=== PATIENT | male | born 1960 | race Caucasian/White ===

== ENCOUNTER 2017-03-13 18:03 | Emergency (ER) | payer SELFPAY ==
[~2017-03-13] VITALS: Ht 177.8 cm; Wt 92.8 kg
[~2017-03-13 18:03] MED LIST: AMOX500T PO; HYDRO2.5%T TOP; METF-324 PO; ULTR50TA PO
[2017-03-13 18:15] VITALS: BP 127/75; PULSE 106; RESP 16; TEMP 98.3; O2SAT 96
[2017-03-13] MEDS ORDERED: GABA800T PO (18:24)
[2017-03-13] MEDS ORDERED: METF1000 PO (18:24)
--- NOTE | 2017-03-13 19:41 | PD ---
HPI Chief Complaint: Medication Refill Request Time Seen by Provider: 19:04 Travel History International Travel<30 days: No Contact w/Intl Traveler<30days: No Traveled to known affect area: No History of Present Illness HPI This is a 56-year-old male here requesting medication refill of Neurontin. Patient is unclear on his exact dose or what physician prescribed it for him. The patient first tells me he takes 300 mg and then his friend reports he takes 800 mg. His friend is answering most of the questions for him. The patient does not have a pill bottle to verify dosage or frequency. He will not give me the name of the physician who prescribes it for him. While being interviewed the patient and his friend becomes very argumentative. PFSH Past Medical History Arthritis: No Asthma: No Autoimmune Disease: No Anxiety: Yes Depression: No Heart Rhythm Problems: No Cancer: No High Cholesterol: No Chemotherapy: No Chest Pain: No Congestive Heart Failure: No COPD: No Cerebrovascular Accident: No Diabetes: Yes Patient Takes Glucophage: Yes Diminished Hearing: No Endocrine: No GERD: No Hiatal Hernia: No Kidney Stones: No Migraines: No Radiation Therapy: No Renal Failure: No Seizures: No Sleep Apnea: No Thyroid Disease: No Ulcer: No Tetanus Vaccination: Unknown Influenza Vaccination: No Past Surgical History Abdominal Surgery: Yes (HERNIA REPAIR) Arteriovenous Shunt: No Cardiac Surgery: No Endocrine Surgery: No Eye Surgery: No Gynecologic Surgery: No Insulin Pump: No Joint Replacement: No Oral Surgery: Yes (LIP SX) Pacemaker: No Thoracic Surgery: No Other Surgery: Yes Social History Alcohol Use: No Tobacco Use: Yes (2 PPD) Substance Use: No Allergies-Medications (Allergen,Severity, Reaction): Coded Allergies: codeine (Unverified Allergy, Intermediate, Nausea/Vomiting, 03/13/17) Reported Meds & Prescriptions Reported Meds & Active Scripts Active Reported Metformin (Metformin HCl) 1,000 Mg Tab 1,000 Mg PO BIDPC Gabapentin 800 Mg Tab 800 Mg PO TID Review of Systems Except as stated in HPI: all other systems reviewed are Neg General / Constitutional: No: Fever Eyes: No: Visual changes HENT: No: Headaches Cardiovascular: No: Chest Pain or Discomfort Respiratory: No: Shortness of Breath Gastrointestinal: No: Abdominal Pain Genitourinary: No: Dysuria Musculoskeletal: Positive: Pain (chronic bilateral leg pain) Skin: No Rash Physical Exam Narrative GENERAL: Alert 56 old male. No distress SKIN: Warm and dry. HEAD: Normocephalic. EYES: No injection or drainage. NECK: Supple, trachea midline. RESPIRATORY: No respiratory distress Data Data Last Documented VS Vital Signs Date Time Temp Pulse Resp B/P (MAP) Pulse Ox O2 Delivery O2 Flow Rate FiO2 03/13/17 18:15 98.3 106 16 127/75 (92) 96 MDM Medical Decision Making Medical Screen Exam Complete: Yes Emergency Medical Condition: No Differential Diagnosis Medication refill, medication noncompliance Narrative Course A medical screening exam was performed: At the time of evaluation the presenting medical condition was determined not to be of an emergent nature. The patient was given the option of receiving additional care, but declined. Patient was given options for additional community resources from which to obtain care. The Patient Has Been advised to seek medical attention for their presenting complaint. The patient has been advised to return to the ER at any time if an emergent condition develops. Diagnosis Primary Impression: Encounter for medical screening examination Referrals: [facility] Disposition: 01 DISCHARGE HOME Condition: Stable Cris Cuellar Mar 13, 2017 19:41
== END 2017-03-13 19:42 | disposition left against medical advice (07) ==
LOC: PHEFT 18:03
DX: Z76.0 Encounter for issue of repeat prescription (principal); F41.9 Anxiety disorder, unspecified; E11.9 Type 2 diabetes mellitus without complications; Z88.5 Allergy status to narcotic agent; Z79.84 Long term (current) use of oral hypoglycemic drugs
CPT/HCPCS: 99281

== ENCOUNTER 2017-03-17 11:29 | Inpatient (IN) | payer OTHER ==
[~2017-03-17] VITALS: Ht 177.8 cm; Wt 88.7 kg
[~2017-03-17 11:29] MED LIST changes: -AMOX500T PO; +GABA800T PO; -HYDRO2.5%T TOP; -METF-324 PO; +METF1000 PO; -ULTR50TA PO
[2017-03-17 11:31] VITALS: BP 113/68; PULSE 92; RESP 18; TEMP 98.5; O2SAT 98
[2017-03-17 12:18] LABS: HEMATOCRIT 38.6 % (39.0-51.0); HEMOGLOBIN 12.3 GM/DL (13.0-17.0); MEAN CORPUSCULAR HEMOGLOBIN 27.5 PG (27.0-34.0); MEAN PLATELET VOLUME 6.5 FL (7.0-11.0); PLATELET COUNT 543 TH/MM3 (150-450); RED BLOOD COUNT 4.48 MIL/MM3 (4.50-5.90); RED CELL DISTRIBUTION WIDTH 15.2 % (11.6-17.2); WHITE BLOOD COUNT 12.9 TH/MM3 (4.0-11.0)
[2017-03-17 12:31] LABS: PROTHROMBIN TIME - PATIENT 10.5 SEC (9.8-11.6)
[2017-03-17 12:34] LABS: ALBUMIN 2.3 GM/DL (3.4-5.0); AST (GOT) 10 U/L (15-37); BICARBONATE 26.6 MEQ/L (21.0-32.0); BLOOD UREA NITROGEN 13 MG/DL (7-18); CALCIUM 9.4 MG/DL (8.5-10.1); CHLORIDE 98 MEQ/L (98-107); CREATININE 0.93 MG/DL (0.60-1.30); GLOMERULAR FILTRATION RATE 84 ML/MIN (>89); GLUCOSE,RANDOM 377 MG/DL (74-106); MAGNESIUM 2.1 MG/DL (1.5-2.5); SODIUM (NA) 132 MEQ/L (136-145)
[2017-03-17 12:36] LABS: ALKALINE PHOSPHATASE 132 U/L (45-117); ALT (GPT) 6 U/L (12-78); TOTAL BILIRUBIN ADULT 0.1 MG/DL (0.2-1.0); TOTAL PROTEIN 9.4 GM/DL (6.4-8.2); TROPONIN I LESS THAN 0.02 NG/ML (0.02-0.05)
[2017-03-17 12:47] LABS: BANDS 2 % (0-6); LYMPHOCYTES 26 % (9-44); NEUTROPHIL # MANUAL DIFF 9.2 TH/MM3 (1.8-7.7); POLYS (SEG NEUTROPHILS) 69 % (16-70)
--- NOTE | 2017-03-17 12:49 | RADRPT ---
EXAM DATE/TIME: 03/17/2017 12:12 [facility] COMPARISON: No previous studies available for comparison. INDICATIONS : Trouble walking, bilateral leg weakness, recent fall RADIATION DOSE: 56.35 CTDIvol (mGy) MEDICAL HISTORY : Diabetes SURGICAL HISTORY : None. ENCOUNTER: Initial ACUITY: 3 weeks PAIN SCALE: 9/10 LOCATION: cranial TECHNIQUE: Multiple contiguous axial images were obtained of the head. Using automated exposure control and adj ustment of the mA and/or kV according to patient size, radiation dose was kept as low as reasonably a chievable to obtain optimal diagnostic quality images. DICOM format image data is available electro nically for review and comparison. FINDINGS: CEREBRUM: There is mild generalized atrophy. Ventricles are normal in size. There is a well-defined low density adjacent to the right frontal horn in the periventricular white matter characteristic of encephaloma lacia. No midline shift, mass lesion, hemorrhage or acute infarction. No extra-axial fluid collecti ons are seen. POSTERIOR FOSSA: The cerebellum and brainstem demonstrate no acute finding. The 4th ventricle is midline. The cerebe llopontine angle is unremarkable. EXTRACRANIAL: There is complete opacification of the partially visualized left maxillary sinus. A subcutaneous hete rogeneous ovoid mass is present along the left inferior occipital region measuring up to 3.7 cm. SKULL: The calvaria is intact. No evidence of skull fracture. CONCLUSION: 1. No acute intracranial abnormality is identified. There is encephalomalacia likely related to old i schemia in the right frontal periventricular white matter. 2. There is a 3.7 cm subcutaneous mass in the left inferior occipital region. The appearance favors a sebaceous cyst or epidermal inclusion cyst. Suggest correlating with clinical examination to ensure that a more concerning abnormality is not present in this area. 3. Complete opacification of the partially visualized left maxillary sinus. Melquiades Vann MD on March 17, 2017 at 12:43 Board Certified Radiologist. This report was verified electronically.
--- NOTE | 2017-03-17 13:44 | EKG ---
Date Performed: 03/17/2017 Time Performed: 11:57:44 PTAGE: 56 years EKG: Sinus rhythm NORMAL ECG PREVIOUS TRACING : 07/28/2013 15.57 Since the prior tracing, there has been no significant mueller DOCTOR: Rizwan Moscoso Interpretating Date/Time 03/17/2017 13:42:58
--- NOTE | 2017-03-17 15:57 | PD ---
HPI Chief Complaint: General Weakness Time Seen by Provider: 15:28 Travel History International Travel<30 days: No Contact w/Intl Traveler<30days: No Traveled to known affect area: No History of Present Illness HPI 56-year-old male with PMH of untreated DM, osteomyelitis, current smoker 2 packs per day presents to the ED for evaluation of worsening wounds of the left foot, inability to ambulate. Endorses multiple falls. Unsure of LOC. He denies fever, chills, nausea, vomiting decreased appetite, changes in bowel habits, dysuria, back pain. He states that he has not been taking any medications for "a while." He does not have any primary care provider. He states the last time he had any care of his foot was 4 years ago when he was admitted to the hospital. He states that his condition has worsened to the point where he is unable to care for himself which caused him to seek treatment today. PFSH Past Medical History Arthritis: No Asthma: No Autoimmune Disease: No Anxiety: Yes Depression: No Heart Rhythm Problems: No Cancer: No High Cholesterol: No Chemotherapy: No Chest Pain: No Congestive Heart Failure: No COPD: No Cerebrovascular Accident: No Diabetes: Yes Diminished Hearing: No Endocrine: No GERD: No Hiatal Hernia: No Kidney Stones: No Migraines: No Radiation Therapy: No Renal Failure: No Seizures: No Sleep Apnea: No Thyroid Disease: No Ulcer: No Past Surgical History Abdominal Surgery: Yes (HERNIA REPAIR) Arteriovenous Shunt: No Cardiac Surgery: No Endocrine Surgery: No Eye Surgery: No Gynecologic Surgery: No Insulin Pump: No Joint Replacement: No Oral Surgery: Yes (LIP SX) Pacemaker: No Thoracic Surgery: No Other Surgery: Yes Social History Alcohol Use: No Tobacco Use: Yes (2 PPD) Substance Use: No Allergies-Medications (Allergen,Severity, Reaction): Coded Allergies: codeine (Unverified Allergy, Intermediate, Nausea/Vomiting, 03/13/17) Reported Meds & Prescriptions Reported Meds & Active Scripts Active Reported Gabapentin 800 Mg Tab 800 Mg PO TID Review of Systems Except as stated in HPI: all other systems reviewed are Neg Physical Exam Narrative GENERAL: Well-nourished, well-developed, disheveled, foul-smelling white male in no acute distress SKIN: Focused skin assessment warm/dry. Multiple small crusts distributed over the entire skin surface. Multiple open wounds of the plantar surface of the left foot, notably the lateral aspect is a 3-4 cm defect, approximately 2 cm deep, the distal head of the fourth metatarsal is visible. There is purulent material in the wound, small amount of bleeding. Patient has no sensation to deep probing of the wound. HEAD: Normocephalic. Atraumatic. Large lipoma left occiput. EYES: No scleral icterus. No injection or drainage. NECK: Supple, trachea midline. No JVD or lymphadenopathy. CARDIOVASCULAR: Regular rate and rhythm without murmurs, gallops, or rubs. RESPIRATORY: Breath sounds equal bilaterally. No accessory muscle use. GASTROINTESTINAL: Abdomen soft, non-tender, nondistended. MUSCULOSKELETAL: No cyanosis, or edema. BACK: Nontender without obvious deformity. No CVA tenderness. Data Data Last Documented VS Vital Signs Date Time Temp Pulse Resp B/P (MAP) Pulse Ox O2 Delivery O2 Flow Rate FiO2 03/17/17 11:31 98.5 92 18 113/68 (83) 98 Orders Orders Electrocardiogram (03/17/17 11:38) Complete Blood Count With Diff (03/17/17 11:38) Comprehensive Metabolic Panel (03/17/17 11:38) Magnesium (Mg) (03/17/17 11:38) Ckmb (Isoenzyme) Profile (03/17/17 11:38) Troponin I (03/17/17 11:38) Act Partial Throm Time (Ptt) (03/17/17 11:38) Prothrombin Time / Inr (Pt) (03/17/17 11:38) Ct Brain W/O Iv Contrast(Rout) (03/17/17 11:38) Urinalysis - C+S If Indicated (03/17/17 15:30) Westergren Sedimentation Rate (03/17/17 15:49) C-Reactive Protein (Crp) (03/17/17 15:49) Blood Culture (03/17/17 15:49) Wound Culture And Gram Stain (03/17/17 15:49) Foot, Complete (Mov8dym) (03/17/17 16:13) Consult Podiatry (03/17/17 ) Wbc Spect Ceretec (03/17/17 ) Vancomycin Inj (Vancomycin Inj) (03/17/17 16:45) Piperacil-Tazo 4.5 Gm Premix (Zosyn 4.5 (03/17/17 16:45) Admit To Inpatient (03/17/17 ) Vital Signs (Adult) Q4H (03/17/17 17:02) Neuro Checks Q4H (03/17/17 17:02) Activity Oob With Assistance (03/17/17 17:02) Intake + Output DELON.QSHIFT (03/17/17 17:02) Diet 1800 Ada Cons Carb (03/17/17 Dinner) Sodium Chloride 0.9% Flush (Ns Flush) (03/17/17 17:15) Sodium Chloride 0.9% Flush (Ns Flush) (03/17/17 21:00) Acetaminophen (Tylenol) (03/17/17 17:15) Ondansetron Inj (Zofran Inj) (03/17/17 17:15) Basic Metabolic Panel (Bmp) (03/18/17 06:00) Complete Blood Count With Diff (03/18/17 06:00) Pt Request For Service (03/17/17 17:02) Heparin Inj (Heparin Inj) (03/17/17 17:15) Naloxone Inj (Narcan Inj) (03/17/17 17:15) Magnesium Hydroxide Liq (Milk Of Magnesi (03/17/17 17:15) Sennosides (Senokot) (03/17/17 17:15) Bisacodyl Supp (Dulcolax Supp) (03/17/17 17:15) Lactulose Liq (Lactulose Liq) (03/17/17 17:15) Inpatient Certification (03/17/17 ) Admit Order (Ed Use Only) (03/17/17 17:03) Bedside Glucose DELON.CSUGAR (03/17/17 17:04) Blood Glucose Goal (Criteria) (03/17/17 17:04) Hypoglycemia 70 Mg/Dl Or < (03/17/17 17:04) Notify Dr: Other (03/17/17 17:04) Dextrose 50% In Earl (Vial) Inj (D50w (Vi (03/17/17 17:15) Glucagon Inj (Glucagon Inj) (03/17/17 17:15) Consult Geek Squad Manager (03/17/17 ) Case Management Consult (03/17/17 ) Insulin Aspart Supplemtl Scale (Novolog (03/17/17 21:00) Labs Laboratory Tests Test 03/17/17 12:05 White Blood Count 12.9 TH/MM3 Red Blood Count 4.48 MIL/MM3 Hemoglobin 12.3 GM/DL Hematocrit 38.6 % Mean Corpuscular Volume 86.0 FL Mean Corpuscular Hemoglobin 27.5 PG Mean Corpuscular Hemoglobin Concent 32.0 % Red Cell Distribution Width 15.2 % Platelet Count 543 TH/MM3 Mean Platelet Volume 6.5 FL CBC Comment AUTO DIFF Differential Total Cells Counted 100 Neutrophils % (Manual) 69 % Band Neutrophils % 2 % Lymphocytes % 26 % Eosinophils % 3 % Neutrophils # (Manual) 9.2 TH/MM3 Differential Comment FINAL DIFF MANUAL Platelet Estimate HIGH Platelet Morphology Comment NORMAL Prothrombin Time 10.5 SEC Prothromb Time International Ratio 1.0 RATIO Activated Partial Thromboplast Time 40.2 SEC Blood Urea Nitrogen 13 MG/DL Creatinine 0.93 MG/DL Random Glucose 377 MG/DL Total Protein 9.4 GM/DL Albumin 2.3 GM/DL Calcium Level 9.4 MG/DL Magnesium Level 2.1 MG/DL Alkaline Phosphatase 132 U/L Aspartate Amino Transf (AST/SGOT) 10 U/L Alanine Aminotransferase (ALT/SGPT) 6 U/L Total Bilirubin 0.1 MG/DL Sodium Level 132 MEQ/L Potassium Level 4.8 MEQ/L Chloride Level 98 MEQ/L Carbon Dioxide Level 26.6 MEQ/L Anion Gap 7 MEQ/L Estimat Glomerular Filtration Rate 84 ML/MIN Total Creatine Kinase 45 U/L Troponin I LESS THAN 0.02 NG/ML C-Reactive Protein 7.50 MG/DL MDM Medical Decision Making Medical Screen Exam Complete: Yes Emergency Medical Condition: Yes Differential Diagnosis Diabetic foot wound versus cellulitis versus sepsis versus osteomyelitis versus noncompliance versus other Narrative Course 56-year-old male with PMH of untreated DM, osteomyelitis, current smoker 2 packs per day presents to the ED for evaluation of worsening wounds of the left foot, inability to ambulate. States that he has had multiple falls recently. He is unsure if he does that or loss consciousness. He does not have any primary care provider. He states the last time he had any care of his foot was 4 years ago when he was admitted to the hospital. He states that his condition has worsened to the point where he is unable to care for himself which caused him to seek treatment today. Patient's afebrile, pulse 92, respiratory rate 18 , O2 sats 98%, BP 113/68 on presentation. Physical exam reveals a disheveled, foul-smelling white male in no acute distress. There is a large lipoma on the left aspect of the occiput. The left foot is completely insensate and bears several open wounds of the plantar surface. The largest of these is on the lateral aspect, near the distal head of the fifth metatarsal. This is actually visible through the wound. The wounds are weeping purulent, foul-smelling discharge. IV was established. Blood cultures, wound cultures were obtained. EKG rate 93, sinus rhythm. Normal intervals. Normal axis. No acute ST changes. Reviewed by Dr. Bravo Cardiac enzymes negative 1. WBCs 12.9. Hemoglobin 12.3. Platelets 543. INR 1.0. CMP: Glucose 377. CRP 7.50 ESR 86 Right foot x-ray: Involvement of the metatarsal phalangeal joints toes 3 and 4 with involvement of the distal shaft of the fourth metatarsal suggesting osteomyelitis or associated septic arthritis both sides of the joint. Findings per radiology read. Patient was administered IV vancomycin and Zosyn. I spoke with Dr. Hu who would like the patient admitted to the medicine service. He request a nuclear medicine Ceretec scan of the involved appendage. I discussed the plan to admit to the patient. He is agreeable. Dr. Bland agrees to accept him to the medicine service. Please see medicine and podiatry notes for disposition. Luh Michelle Mar 17, 2017 15:57
[2017-03-17] MEDS ORDERED: PIPERACIL-TAZO 4.5 GM PREMIX 100 ML IV ONE (16:45)
[2017-03-17] MEDS ORDERED: VANCOMYCIN INJ 1,000 MG in SODIUM CHLOR 0.9% 250 ML INJ 250 ML IV ONE (16:45)
--- NOTE | 2017-03-17 17:13 | RADRPT ---
EXAM DATE/TIME: 03/17/2017 16:23 [facility] COMPARISON: FOOT LEFT COMPLETE ([id number]), July 30, 2013, 11:12. INDICATIONS : Left foot pain, evaluate for osteomyelitis. MEDICAL HISTORY : Diabetes mellitus type II. Smoker. SURGICAL HISTORY : Multiple foot surgery. ENCOUNTER: Initial ACUITY: 3 weeks PAIN SCORE: 10/10 LOCATION: Left plantar surface. FINDINGS: There is pencil point foreshortening at the base of the first and second metacarpals. Pencil point fo reshortening is noted at the base of the distal phalanx of the second toe. There is sclerosis of the shaft of the third metatarsal which is fused to the accompanying third cuneiform bone There is absence of the shaft of the distal one half of the fourth metatarsal with its margin and joint at the fourth metatarsophalangeal joint being eroded suspicious of infection osteomyelitis and or septic arthritis. Erosive changes are noted on both sides of the t hird metatarsal phalangeal joint suggesting septic arthritis infection. CONCLUSION: Findings of involvement of the metatarsal phalangeal joint toes #3 and 4 with involvement of the dist al shaft of the fourth metatarsal suggesting osteomyelitis in or associated septic arthritis both pippa es of the joints. Jaxon Lisa MD on March 17, 2017 at 17:06 Board Certified Radiologist. This report was verified electronically.
[2017-03-17] MEDS ORDERED: LACTULOSE SYRUP 20 GM/30 ML CUP PO PRN (17:15)
[2017-03-17] MEDS ORDERED: GLUCAGON 1 MG/ML VIAL OTHER PRN (17:15)
[2017-03-17] MEDS ORDERED: SENNOSIDES 8.6 MG TAB PO PRN (17:15)
[2017-03-17] MEDS ORDERED: BISACODYL 10 MG SUPP RECTAL PRN (17:15)
[2017-03-17] MEDS ORDERED: NALOXONE HCL 0.4 MG/ML AMP IV PUSH PRN (17:15)
[2017-03-17] MEDS: HEPARIN SODIUM - SQ 10,000 UNITS/ML VIAL SQ SCH (17:15)
[2017-03-17] MEDS ORDERED: DEXTROSE 50% IN WATER 50 ML VIAL(D50) IV PUSH PRN (17:15)
[2017-03-17] MEDS ORDERED: MAGNESIUM HYDROXIDE SUSP 30 ML CUP PO PRN (17:15)
[2017-03-17] MEDS ORDERED: ONDANSETRON HCL 4 MG/2 ML VIAL IVP PRN (17:15)
[2017-03-17 17:45] VITALS: BP 101/56; PULSE 92; RESP 18; TEMP 97.5; O2SAT 97
[2017-03-17 20:00] VITALS: BP 127/78; PULSE 93; RESP 20; TEMP 98.9; O2SAT 96
--- NOTE | 2017-03-17 20:01 | HHI.HP ---
[facility] No Primary Care Physician Admission Diagnosis diabetic foot wound, r/o osteomyelitis Diagnoses: Travel History International Travel<30 Days: No Contact w/Intl Traveler <30 Da: No Traveled to Known Affected Are: No History of Present Illness 56 y/o male with a history or DM and neuropathy with complaints of a worsening ulcer on his left foot. He states he has had this ulcers for about a week out. He states he has not seen a PCP in a few years and gets his metformin from his brothers prescription. He has misplaced the bottle and has not taken meds for 3 days. He states he has not been able to walk very well and uses a walker to get around. He states he has not seen a speech lang path because he fears he may loose his foot. He denies any chest pain, fevers, or chills. He takes gabapentin for pain and states that it does control his pain. He does not have any increasing pain to his foot. Review of Systems Except as stated in HPI: all other systems reviewed are Neg Past Family Social History Past Medical History DM Neuropathy Past Surgical History Left great toe amputation Reported Medications Reported Meds & Active Scripts Active Reported Gabapentin 800 Mg Tab 800 Mg PO TID Allergies: Coded Allergies: codeine (Unverified Allergy, Intermediate, Nausea/Vomiting, 03/13/17) Active Ordered Medications Current Medications Medications (Trade) Dose Ordered Sig/Sabino Route Start Time Stop Time Status Last Admin (NS Flush) 2 ml UNSCH PRN IV FLUSH 03/17/17 17:15 (NS Flush) 2 ml BID IV FLUSH 03/17/17 21:00 (Tylenol) 650 mg Q4H PRN PO 03/17/17 17:15 (Zofran Inj) 4 mg Q6H PRN IVP 03/17/17 17:15 (Heparin Inj) 5,000 units Q12HR SQ 03/17/17 17:15 03/17/17 17:15 (Narcan Inj) 0.4 mg UNSCH PRN IV PUSH 03/17/17 17:15 (Milk Of Magnesia Liq) 30 ml Q12H PRN PO 03/17/17 17:15 (Senokot) 17.2 mg Q12H PRN PO 03/17/17 17:15 (Dulcolax Supp) 10 mg DAILY PRN RECTAL 03/17/17 17:15 (Lactulose Liq) 30 ml DAILY PRN PO 03/17/17 17:15 (D50w (Vial) Inj) 50 ml UNSCH PRN IV PUSH 03/17/17 17:15 (Glucagon Inj) 1 mg UNSCH PRN OTHER 03/17/17 17:15 (NovoLOG SUPPLEMENTAL SCALE) 1 ACHS SLIDING SCALE SQ 03/17/17 21:00 Family History Father: [place], [place] Social History Tobacco use: 1 PPD Alcohol use: Denies Illicit drug use: Denies Lives with a brother but about to be homeless Physical Exam Vital Signs Vital Signs Date Time Temp Pulse Resp B/P (MAP) Pulse Ox O2 Delivery O2 Flow Rate FiO2 03/17/17 17:45 97.5 92 18 101/56 (71) 97 03/17/17 11:31 98.5 92 18 113/68 (83) 98 Physical Exam GENERAL: This is a well-nourished, well-developed patient, in no apparent distress. SKIN: Plantar ulcer to left foot, necrotic and foul smelling, brownish yellow drainage. HEAD: Atraumatic. Normocephalic. EYES: Pupils equal round and reactive. Extraocular motions intact. ENT: Nose without bleeding, purulent drainage or septal hematoma. Airway patent. NECK: Trachea midline. No JVD or lymphadenopathy. CARDIOVASCULAR: Regular rate and rhythm without murmurs, gallops, or rubs. Diminished pedal pulses. RESPIRATORY: Clear to auscultation. Breath sounds equal bilaterally. No wheezes , rales, or rhonchi. GASTROINTESTINAL: Abdomen soft, non-tender, nondistended. No guarding. MUSCULOSKELETAL: Extremities without clubbing, cyanosis, or edema. No calf tenderness. NEUROLOGICAL: Awake and alert. Motor and sensory grossly within normal limits. Normal speech. Laboratory Laboratory Tests Test 03/17/17 12:05 03/17/17 17:30 White Blood Count 12.9 Red Blood Count 4.48 Hemoglobin 12.3 Hematocrit 38.6 Mean Corpuscular Volume 86.0 Mean Corpuscular Hemoglobin 27.5 Mean Corpuscular Hemoglobin Concent 32.0 Red Cell Distribution Width 15.2 Platelet Count 543 Mean Platelet Volume 6.5 CBC Comment AUTO DIFF Differential Total Cells Counted 100 Neutrophils % (Manual) 69 Band Neutrophils % 2 Lymphocytes % 26 Eosinophils % 3 Neutrophils # (Manual) 9.2 Differential Comment FINAL DIFF MANUAL Platelet Estimate HIGH Platelet Morphology Comment NORMAL Prothrombin Time 10.5 Prothromb Time International Ratio 1.0 Activated Partial Thromboplast Time 40.2 Blood Urea Nitrogen 13 Creatinine 0.93 Random Glucose 377 Total Protein 9.4 Albumin 2.3 Calcium Level 9.4 Magnesium Level 2.1 Alkaline Phosphatase 132 Aspartate Amino Transf (AST/SGOT) 10 Alanine Aminotransferase (ALT/SGPT) 6 Total Bilirubin 0.1 Sodium Level 132 Potassium Level 4.8 Chloride Level 98 Carbon Dioxide Level 26.6 Anion Gap 7 Estimat Glomerular Filtration Rate 84 Total Creatine Kinase 45 Troponin I LESS THAN 0.02 C-Reactive Protein 7.50 Erythrocyte Sedimentation Rate 86 Date/Time Source Procedure Growth Status 03/17/17 16:35 Blood Line Aerobic Blood Culture Pending Received 03/17/17 16:35 Blood Line Anaerobic Blood Culture Pending Received 03/17/17 16:00 Wound Foot Gram Stain Pending Received 03/17/17 16:00 Wound Foot Wound Culture Pending Received Result Diagram: 03/17/17 1205 03/17/17 1205 Imaging Last Impressions Foot X-Ray 03/17/17 1613 Signed Impressions: Service Date/Time: Friday, March 17, 2017 16:23 - CONCLUSION: Findings of involvement of the metatarsal phalangeal joint toes #3 and 4 with involvement of the distal shaft of the fourth metatarsal suggesting osteomyelitis in or associated septic arthritis both sides of the joints. Jaxon Lisa MD Head CT 03/17/17 1138 Signed Impressions: Service Date/Time: Friday, March 17, 2017 12:12 - CONCLUSION: 1. No acute intracranial abnormality is identified. There is encephalomalacia likely related to old ischemia in the right frontal periventricular white matter. 2. There is a 3.7 cm subcutaneous mass in the left inferior occipital region. The appearance favors a sebaceous cyst or epidermal inclusion cyst. Suggest correlating with clinical examination to ensure that a more concerning abnormality is not present in this area. 3. Complete opacification of the partially visualized left maxillary sinus. MD Maggie Christian VTE Risk Assessment Maggie VTE Risk Assessment: Mod/High Risk (score >= 2) Caprini Risk Assessment Model Point Value = 1 Point Value = 2 Point Value = 3 Point Value = 5 Age 41-60 Minor surgery BMI > 25 kg/m2 Swollen legs Varicose veins or History of unexplained or recurrent spontaneous Oral contraceptives or hormone replacement Sepsis (< 1 month) Serious lung disease, including pneumonia (< 1 month) Abnormal pulmonary function Acute myocardial infarction Congestive heart failure (< 1 month) History of inflammatory bowel disease Medical patient at bed rest Age 61-74 Arthroscopic surgery Major open surgery (> 45 min) Laparoscopic surgery (> 45 min) Malignancy Confined to bed (> 72 hours) Immobilizing plaster cast Central venous access Age >= 75 History of VTE Family history of VTE Factor V Leiden Prothrombin [id number] Lupus anticoagulant Anticardiolipin antibodies Elevated serum homocysteine Heparin-induced thrombocytopenia Other congenital or acquired thrombophilia Stroke (< 1 month) Elective arthroplasty Hip, pelvis, or leg fracture Acute spinal cord injury (< 1 month) Prophylaxis Regimen Total Risk Factor Score Risk Level Prophylaxis Regimen 0-1 Low Early ambulation 2 Moderate Order ONE of the following: *Sequential Compression Device (SCD) *Heparin 5000 units SQ BID 3-4 Higher Order ONE of the following medications: *Heparin 5000 units SQ TID *Enoxaparin/Lovenox 40 mg SQ daily (WT < 150 kg, CrCl > 30 mL/min) *Enoxaparin/Lovenox 30 mg SQ daily (WT < 150 kg, CrCl > 10-29 mL/min) *Enoxaparin/Lovenox 30 mg SQ BID (WT < 150 kg, CrCl > 30 mL/min) AND/OR *Sequential Compression Device (SCD) 5 or more Highest Order ONE of the following medications: *Heparin 5000 units SQ TID (Preferred with Epidurals) *Enoxaparin/Lovenox 40 mg SQ daily (WT < 150 kg, CrCl > 30 mL/min) *Enoxaparin/Lovenox 30 mg SQ daily (WT < 150 kg, CrCl > 10-29 mL/min) *Enoxaparin/Lovenox 30 mg SQ BID (WT < 150 kg, CrCl > 30 mL/min) AND *Sequential Compression Device (SCD) Assessment and Plan Problem List: (1) Osteomyelitis of toe of left foot ICD Code: M86.9 - Osteomyelitis of toe of left foot Status: Acute (2) DM (diabetes mellitus), type 2, uncontrolled ICD Code: E11.65 - DM (diabetes mellitus), type 2, uncontrolled Status: Acute (3) Hyperglycemia ICD Code: R73.9 - Hyperglycemia Status: Acute Assessment and Plan 56 y/o male with a history or DM and neuropathy with complaints of a worsening ulcer on his left foot. Sepsis due to Osteomyelitis of left foot, WBC 12.9, HR 95 ESR 86 Foot x ray reviewed and suggests osteomyelitis -Vanco IV and Zosyn IV -Consult Podiatry for recommendations -WBC scan ordered Hyperglycemia in an uncontrolled diabetic Glucose 377 -Accu checks AC and HS -A1C ordered, patient may need long acting insulin -Consult case management for medication assistance -unit educator Diabetic neuropathy -Resume home gabapentin Tobacco abuse -Encouraged to quit DVT prophylaxis: Heparin SQ Discussed Condition With Patient and RN Physician Certification 2 Midnight Certification Type: Admission for Inpatient Services Order for Inpatient Services The services are ordered in accordance with Medicare regulations or non- Medicare payer requirements, as applicable. In the case of services not specified as inpatient-only, they are appropriately provided as inpatient services in accordance with the 2-midnight benchmark. Estimated LOS (days): 3 days is the estimated time the patient will need to remain in the hospital, assuming treatment plan goals are met and no additional complications. Post-Hospital Plan: Not yet determined Joanne Smith Mar 17, 2017 20:01
[2017-03-17] MEDS ORDERED: Vancomycin Consult Pharmacy 1 EA OTHER SCH (20:30)
[2017-03-17] MEDS ORDERED: GABAPENTIN 400 MG CAP PO ONE (20:30)
[2017-03-17] MEDS: INSULIN ASPART SUPPLEMENTAL SCALE SQ SCH (21:00)
[2017-03-17] MEDS ORDERED: INSULIN ASPART SUPPLEMENTAL SCALE SQ SCH (21:00)
[2017-03-17] MEDS: VANCOMYCIN 1 GM/200 ML PREMIX IV ONE (21:00)
[2017-03-17] MEDS: GABAPENTIN 400 MG CAP PO SCH (22:49)
[2017-03-17] MEDS: PIPERACIL-TAZO 3.375 GM PREMIX 50 ML IV SCH (23:32)
[2017-03-17] MEDS: SODIUM CHLORIDE 0.9% FLUSH 10 ML FLUSH IV FLUSH SCH (23:33)
[2017-03-18] VITALS: BP 119/67; PULSE 96; RESP 20; TEMP 99.5; O2SAT 95
[2017-03-18 04:00] VITALS: BP 128/69; PULSE 95; RESP 20; TEMP 98.1; O2SAT 96
[2017-03-18] MEDS: PIPERACIL-TAZO 3.375 GM PREMIX 50 ML IV SCH ×4 (04:24→22:57)
[2017-03-18 05:35] LABS: AUTOMATED NEUTROPHIL # 7.9 TH/MM3 (1.8-7.7); BASOPHIL # 0.1 TH/MM3 (0-0.2); BASOPHIL % 1.1 % (0.0-2.0); EOSINOPHIL # 0.3 TH/MM3 (0-0.4); EOSINOPHIL % 2.9 % (0.0-4.0); HEMATOCRIT 29.9 % (39.0-51.0); HEMOGLOBIN 10.4 GM/DL (13.0-17.0); LYMPHOCYTE # 2.5 TH/MM3 (1.0-4.8); MEAN CELL VOLUME 83.8 FL (80.0-100.0); MEAN CORPUSCULAR HEMOGLOBIN 29.1 PG (27.0-34.0); MEAN CORPUSCULAR HGB CONC 34.8 % (32.0-36.0); MEAN PLATELET VOLUME 6.7 FL (7.0-11.0); MONO % 9.8 % (0.0-8.0); MONOCYTE # 1.2 TH/MM3 (0-0.9); NEUT % 65.2 % (16.0-70.0); PLATELET COUNT 499 TH/MM3 (150-450); RED BLOOD COUNT 3.57 MIL/MM3 (4.50-5.90); RED CELL DISTRIBUTION WIDTH 14.8 % (11.6-17.2); WHITE BLOOD COUNT 12.1 TH/MM3 (4.0-11.0)
[2017-03-18 05:51] LABS: BICARBONATE 28.9 MEQ/L (21.0-32.0); CALCIUM 8.6 MG/DL (8.5-10.1); CREATININE 0.83 MG/DL (0.60-1.30)
[2017-03-18 07:50] VITALS: BP 106/56; PULSE 90; RESP 21; TEMP 98.5; O2SAT 95
[2017-03-18] MEDS: INSULIN ASPART SUPPLEMENTAL SCALE SQ SCH ×4 (09:43→21:39)
[2017-03-18] MEDS: SODIUM CHLORIDE 0.9% FLUSH 10 ML FLUSH IV FLUSH SCH ×2 (09:44→21:38)
[2017-03-18] MEDS: VANCOMYCIN 1,500 MG/NS 500 ML IV SCH ×4 (09:44→22:56)
[2017-03-18] MEDS: HEPARIN SODIUM - SQ 10,000 UNITS/ML VIAL SQ SCH ×2 (09:49→21:37)
[2017-03-18 11:44] VITALS: BP 110/60; PULSE 90; RESP 22; TEMP 98.9; O2SAT 95
--- NOTE | 2017-03-18 12:03 | PD.POD ---
Subjective Podiatric Problems Chronic osteomyelitis left foot Pain scale used: 0-10 numeric scale Pain score: 0 Remarks Patient is a 56-year-old diabetic under poor control who smokes. Back in 2013 he had a left hallux amputation for osteomyelitis. He failed to follow-up and presented to the emergency department yesterday with open wounds of his left foot. Past Med/Surg/Social History Past Medical History Endocrine: REPORTS HX OF: Diabetes mellitus Social History Smoking Status: Current Every Day Smoker Review of Systems Notes Open wounds of the left foot Objective Vital Signs Vital Signs Date Time Temp Pulse Resp B/P (MAP) Pulse Ox O2 Delivery O2 Flow Rate FiO2 03/18/17 11:44 98.9 90 22 110/60 (77) 95 03/18/17 07:50 98.5 90 21 106/56 (73) 95 03/18/17 04:00 98.1 95 20 128/69 (88) 96 03/18/17 00:00 99.5 96 20 119/67 (84) 95 03/17/17 20:00 98.9 93 20 127/78 (94) 96 03/17/17 17:45 97.5 92 18 101/56 (71) 97 Coded Allergies: codeine (Unverified Allergy, Intermediate, Nausea/Vomiting, 03/13/17) Medications and IVs Current Medications Vancomycin HCl 1000 mg/Sodium Chloride 250 ml @ 250 mls/hr ONCE ONCE IV Last administered on 03/17/17at 17:06; Start 03/17/17 at 16:45; Stop 03/17/17 at 17:44 ; Status DC Piperacillin Sod/ Tazobactam Sod 100 ml @ 200 mls/hr ONCE ONCE IV Last administered on 03/17/17at 16:37; Start 03/17/17 at 16:45; Stop 03/17/17 at 17:14 ; Status DC Sodium Chloride (NS Flush) 2 ml UNSCH PRN IV FLUSH FLUSH AFTER USING IV ACCESS ; Start 03/17/17 at 17:15 Sodium Chloride (NS Flush) 2 ml BID IV FLUSH Last administered on 03/18/17at 09: 44; Start 03/17/17 at 21:00 Acetaminophen (Tylenol) 650 mg Q4H PRN PO TEMP > 100.4; Start 03/17/17 at 17:15 Ondansetron HCl (Zofran Inj) 4 mg Q6H PRN IVP NAUSEA OR VOMITING; Start at 17:15 Heparin Sodium (Porcine) (Heparin Inj) 5,000 units Q12HR SQ Last administered on 03/18/17at 09:49; Start 03/17/17 at 17:15 Naloxone HCl (Narcan Inj) 0.4 mg UNSCH PRN IV PUSH SEE LABEL COMMENTS; Start at 17:15 Magnesium Hydroxide (Milk Of Magnesia Liq) 30 ml Q12H PRN PO Mild constipation ; Start 03/17/17 at 17:15 Sennosides (Senokot) 17.2 mg Q12H PRN PO Moderate constipation; Start 03/17/17 at 17:15 Bisacodyl (Dulcolax Supp) 10 mg DAILY PRN RECTAL SEVERE CONSITIPATION; Start at 17:15 Lactulose (Lactulose Liq) 30 ml DAILY PRN PO SEVERE CONSITIPATION; Start at 17:15 Dextrose (D50w (Vial) Inj) 50 ml UNSCH PRN IV PUSH HYPOGLYCEMIA-SEE COMMENTS; Start 03/17/17 at 17:15 Glucagon (Glucagon Inj) 1 mg UNSCH PRN OTHER HYPOGLYCEMIA-SEE COMMENTS; Start 03/17/17 at 17:15 Insulin Aspart (NovoLOG SUPPLEMENTAL SCALE) 1 ACHS SLIDING SCALE SQ ; Start at 21:00; Stop 03/17/17 at 21:00; Status DC Pharmacy Profile Note 0 ml @ 0 mls/hr UNSCH OTHER ; Start 03/17/17 at 20:30 Piperacillin Sod/ Tazobactam Sod 50 ml @ 100 mls/hr Q6H IV Last administered on 03/18/17at 09:45; Start 03/17/17 at 23:00 Gabapentin (Neurontin) 800 mg TID PO Last administered on 03/17/17at 22:49; Start 03/18/17 at 09:00 Gabapentin (Neurontin) 800 mg ONCE ONCE PO Last administered on 03/17/17at 20: 30; Start 03/17/17 at 20:30; Stop 03/17/17 at 20:42; Status DC Insulin Aspart (NovoLOG SUPPLEMENTAL SCALE) 1 ACHS SLIDING SCALE SQ Last administered on 03/18/17at 09:43; Start 03/17/17 at 21:00 Vancomycin/Sodium Chloride 200 ml @ 200 mls/hr ONCE ONCE IV ; Start 03/17/17 at 21:00; Stop 03/17/17 at 21:59; Status DC Vancomycin HCl 1500 mg/Sodium Chloride 515 ml @ 257.5 mls/ hr Q12H IV Last administered on 03/18/17at 09:44; Start 03/18/17 at 09:00 Miscellaneous Information SPECIFIC LAB TO BE ... ONCE ONCE .XX ; Start at 08:45; Stop 03/19/17 at 08:46 Other Results Laboratory Tests Test 03/17/17 12:05 03/17/17 17:30 03/18/17 04:43 White Blood Count 12.9 TH/MM3 12.1 TH/MM3 Red Blood Count 4.48 MIL/MM3 3.57 MIL/MM3 Hemoglobin 12.3 GM/DL 10.4 GM/DL Hematocrit 38.6 % 29.9 % Mean Corpuscular Volume 86.0 FL 83.8 FL Mean Corpuscular Hemoglobin 27.5 PG 29.1 PG Mean Corpuscular Hemoglobin Concent 32.0 % 34.8 % Red Cell Distribution Width 15.2 % 14.8 % Platelet Count 543 TH/MM3 499 TH/MM3 Mean Platelet Volume 6.5 FL 6.7 FL CBC Comment AUTO DIFF DIFF FINAL Differential Total Cells Counted 100 Neutrophils % (Manual) 69 % Band Neutrophils % 2 % Lymphocytes % 26 % Eosinophils % 3 % Neutrophils # (Manual) 9.2 TH/MM3 Differential Comment FINAL DIFF MANUAL Platelet Estimate HIGH Platelet Morphology Comment NORMAL Erythrocyte Sedimentation Rate 86 mm/hr Neutrophils (%) (Auto) 65.2 % Lymphocytes (%) (Auto) 21.0 % Monocytes (%) (Auto) 9.8 % Eosinophils (%) (Auto) 2.9 % Basophils (%) (Auto) 1.1 % Neutrophils # (Auto) 7.9 TH/MM3 Lymphocytes # (Auto) 2.5 TH/MM3 Monocytes # (Auto) 1.2 TH/MM3 Eosinophils # (Auto) 0.3 TH/MM3 Basophils # (Auto) 0.1 TH/MM3 Laboratory Tests Test 03/17/17 12:05 03/18/17 04:43 Blood Urea Nitrogen 13 MG/DL 14 MG/DL Creatinine 0.93 MG/DL 0.83 MG/DL Random Glucose 377 MG/DL 230 MG/DL Total Protein 9.4 GM/DL Albumin 2.3 GM/DL Calcium Level 9.4 MG/DL 8.6 MG/DL Magnesium Level 2.1 MG/DL Alkaline Phosphatase 132 U/L Aspartate Amino Transf (AST/SGOT) 10 U/L Alanine Aminotransferase (ALT/SGPT) 6 U/L Total Bilirubin 0.1 MG/DL Sodium Level 132 MEQ/L 137 MEQ/L Potassium Level 4.8 MEQ/L 4.2 MEQ/L Chloride Level 98 MEQ/L 101 MEQ/L Carbon Dioxide Level 26.6 MEQ/L 28.9 MEQ/L Anion Gap 7 MEQ/L 7 MEQ/L Estimat Glomerular Filtration Rate 84 ML/MIN 96 ML/MIN Total Creatine Kinase 45 U/L Troponin I LESS THAN 0.02 NG/ML C-Reactive Protein 7.50 MG/DL Microbiology Date/Time Source Procedure Growth Status 03/17/17 16:35 Blood Line Aerobic Blood Culture - Preliminary NO GROWTH IN 1 DAY Resulted 03/17/17 16:35 Blood Line Anaerobic Blood Culture - Preliminary NO GROWTH IN 1 DAY Resulted 03/17/17 16:30 Blood Line Aerobic Blood Culture - Preliminary NO GROWTH IN 1 DAY Resulted 03/17/17 16:30 Blood Line Anaerobic Blood Culture - Preliminary NO GROWTH IN 1 DAY Resulted 03/17/17 16:00 Wound Foot Gram Stain - Final Resulted 03/17/17 16:00 Wound Foot Wound Culture Pending Resulted Objective Remarks Last 24 hours Impressions Foot X-Ray 03/17/17 1613 Signed Impressions: Service Date/Time: Friday, March 17, 2017 16:23 - CONCLUSION: Findings of involvement of the metatarsal phalangeal joint toes #3 and 4 with involvement of the distal shaft of the fourth metatarsal suggesting osteomyelitis in or associated septic arthritis both sides of the joints. Jaxon Lisa MD Exam-Podiatry Constitutional General appearance: comfortable Nutritional status: overweight Dermatological Exam Skin Temp - Right: Within Normal Limits Skin Texture - Right: Within Normal Limits Skin Elasticity - Right: Within Normal Limits Skin Tugor - Right: Within Normal Limits Hair Growth - Right: Within Normal Limits Pigmentation - Right: Within Normal Limits Skin Temp - Left: Within Normal Limits Skin Texture - Left: Within Normal Limits Skin Elasticity - Left: Within Normal Limits Skin Tugor - Left: Within Normal Limits Hair Growth - Left: Within Normal Limits Pigmentation - Left: Within Normal Limits Present on left: Scaling, Blistering, Cellulitis Vascular/Lymphatic Exam R Dorsails Pedis: Doppler L Dorsails Pedis: Doppler R Posterior Tibial: Doppler L Posterior Tibial: Doppler Neurologic Exam Present on right: Tingling, Paraesthesia Present on left: Tingling, Paraesthesia Musculoskeletal Exam Details Shrunken toes of the right foot secondary to neuropathic deformities. Left foot shows exposed metatarsal heads. There are multiple other ulcerations present of the left foot. Muscle Strength Dorsiflexion (Right): Normal Plantarflexion (Right): Normal Inversion (Right): Normal Eversion (Right): Normal Digital (Right): Normal Dorsiflexion (Left): Normal Plantarflexion (Left): Normal Inversion (Left): Normal Eversion (Left): Normal Digital (Left): Normal Foot Range of Motion Dorsiflexion (Right): Normal Plantarflexion (Right): Normal Inversion (Right): Normal Eversion (Right): Normal Digital (Right): Normal Dorsiflexion (Left): Normal Plantarflexion (Left): Normal Inversion (Left): Normal Eversion (Left): Normal Digital (Left): Normal Assessment & Plan Diagnosis: (1) Toe infection ICD Codes: L08.9 - Toe infection Status: Chronic (2) DM (diabetes mellitus), type 2, uncontrolled ICD Codes: E11.65 - DM (diabetes mellitus), type 2, uncontrolled Status: Chronic (3) Osteomyelitis of toe of left foot ICD Codes: M86.9 - Osteomyelitis of toe of left foot Status: Chronic A/P PLAN: Because of the bone involvement shown on the radiographs of the left foot no proximal foot amputation would provide functional use and primary closure. Patient would benefit from a below-knee amputation. Vascular surgery consult for amputation at below the knee level. Will follow as needed Problem Qualifiers (1) DM (diabetes mellitus), type 2, uncontrolled: Qualified Codes: E11.42 - Type 2 diabetes mellitus with diabetic polyneuropathy ; E11.65 - Type 2 diabetes mellitus with hyperglycemia Yonatan Hu DPM Mar 18, 2017 12:03
[2017-03-18] MEDS: GABAPENTIN 400 MG CAP PO SCH ×2 (13:00→18:23)
[2017-03-18 17:36] LABS: HEMOGLOBIN A1C 18.3 % (4.3-6.0)
--- NOTE | 2017-03-18 17:48 | PD.CAR.PN ---
CVT Progress Note Subjective/Hospital Course: Patient with severe peripheral vascular disease medical noncompliance. Gangrene of the left foot and deformity and incipient gangrene of the right foot I agree with Dr. Hu that there is nothing to do for the left foot and below-knee amputation is the only option I will order CTA with a runoff to see how the right side looks like if there is any way to improve the blood flow there for the right foot will go the same way otherwise very soon Full consult dictated Thanks J Objective: Vital Signs Date Time Temp Pulse Resp B/P (MAP) Pulse Ox O2 Delivery O2 Flow Rate FiO2 03/18/17 11:44 98.9 90 22 110/60 (77) 95 03/18/17 07:50 98.5 90 21 106/56 (73) 95 03/18/17 04:00 98.1 95 20 128/69 (88) 96 03/18/17 00:00 99.5 96 20 119/67 (84) 95 03/17/17 20:00 98.9 93 20 127/78 (94) 96 03/17/17 17:45 97.5 92 18 101/56 (71) 97 Result Diagram: 03/18/17 0443 03/18/17 0443 Tierra Bennett MD Mar 18, 2017 17:48
[2017-03-18 18:00] VITALS: BP 143/81; PULSE 91; RESP 20; TEMP 98.4; O2SAT 96
--- NOTE | 2017-03-18 18:46 | MB ---
cc: TIERRA BAZZI DATE OF CONSULTATION: 03/18/2017 REASON FOR CONSULTATION: Osteomyelitis of both feet, left foot severe peripheral vascular disease, uncontrolled diabetes mellitus. HISTORY OF PRESENT DISEASE: This 56-year-old male, appearing older than his actual age, is noncompliant with medical care and heavy smoker of about a pack a day most of his adult life. He now comes to the emergency room with gangrene of his left foot which was evaluated by podiatry, Dr. Baker, and I am consulted as vascular surgery to evaluate the patient. PAST MEDICAL HISTORY The patient states uncontrolled diabetes mellitus and he takes medications from his [id number] I guess. PAST SURGICAL HISTORY: Left hallux amputation. MEDICATIONS: Metformin that he takes from somebody else. PHYSICAL EXAMINATION: Reveals a 56 year-old male. HEENT: Normocephalic. No trauma to the head. Pupils equal and reactive. Extraocular movements intact. NECK: Bilateral carotid pulses. Bilateral carotid bruits. CHEST: Bilateral breath sounds decreased over the lung hodges, consistent with COPD. HEART: Regular rhythm. ABDOMEN: Soft. Active bowel sounds. No rebound, no guarding, no masses. EXTREMITIES: Femoral pulses are very weak on palpation. Popliteal only by Doppler and posterior tibial on the right, not on the left. Foot is pale, gangrenous and foul-smelling. This is consistent with severe right gangrene and osteomyelitis. On the right side the patient also has inter-digital gangrenous changes and deformity of the ankle but no active ulcers. IMPRESSION AND RECOMMENDATION: Patient with severe vascular disease. Will do CTA with runoff to evaluate the right leg. As far as the left leg is concerned, there is nothing else to do than below-knee amputation and even that may not hold. The patient might need in the future above-knee amputation. I explained this to the patient. Tierra SELF /5:28 PM /6:07 PM
--- NOTE | 2017-03-18 19:10 | HHI.PR ---
Subjective Remarks Patient c/o pain on left foot afebrile denies cp/sob Objective Vitals Vital Signs Date Time Temp Pulse Resp B/P (MAP) Pulse Ox O2 Delivery O2 Flow Rate FiO2 03/18/17 11:44 98.9 90 22 110/60 (77) 95 03/18/17 07:50 98.5 90 21 106/56 (73) 95 03/18/17 04:00 98.1 95 20 128/69 (88) 96 03/18/17 00:00 99.5 96 20 119/67 (84) 95 03/17/17 20:00 98.9 93 20 127/78 (94) 96 I/O 03/17/17 03/17/17 03/17/17 03/18/17 03/18/17 03/18/17 07:00 15:00 23:00 07:00 15:00 23:00 Intake Total 100 ml 220 ml 840 ml Output Total 600 ml 350 ml Balance 100 ml -380 ml 490 ml Intake Oral 220 ml 840 ml IV Total 100 ml Output Urine Total 600 ml 350 ml # Bowel Movements 1 Result Diagram: 03/18/17 0443 03/18/17 0443 Imaging Last Impressions Carotid Artery Ultrasound 03/18/17 0000 Signed Impressions: Service Date/Time: Saturday, March 18, 2017 21:43 - CONCLUSION: No acute disease. Christofer Barron MD Foot X-Ray 03/17/17 1613 Signed Impressions: Service Date/Time: Friday, March 17, 2017 16:23 - CONCLUSION: Findings of involvement of the metatarsal phalangeal joint toes #3 and 4 with involvement of the distal shaft of the fourth metatarsal suggesting osteomyelitis in or associated septic arthritis both sides of the joints. Jaxon Lisa MD Head CT 03/17/17 1138 Signed Impressions: Service Date/Time: Friday, March 17, 2017 12:12 - CONCLUSION: 1. No acute intracranial abnormality is identified. There is encephalomalacia likely related to old ischemia in the right frontal periventricular white matter. 2. There is a 3.7 cm subcutaneous mass in the left inferior occipital region. The appearance favors a sebaceous cyst or epidermal inclusion cyst. Suggest correlating with clinical examination to ensure that a more concerning abnormality is not present in this area. 3. Complete opacification of the partially visualized left maxillary sinus. Melquiades Vann MD Objective Remarks GENERAL: This is a well-nourished, well-developed patient, in no apparent distress. SKIN: Plantar ulcer to left foot, necrotic and foul smelling, brownish yellow drainage. HEAD: Atraumatic. Normocephalic. EYES: Pupils equal round and reactive. Extraocular motions intact. ENT: Nose without bleeding, purulent drainage or septal hematoma. Airway patent. NECK: Trachea midline. No JVD or lymphadenopathy. CARDIOVASCULAR: Regular rate and rhythm without murmurs, gallops, or rubs. Diminished pedal pulses. RESPIRATORY: Clear to auscultation. Breath sounds equal bilaterally. No wheezes , rales, or rhonchi. GASTROINTESTINAL: Abdomen soft, non-tender, nondistended. No guarding. MUSCULOSKELETAL: Extremities without clubbing, cyanosis, or edema. No calf tenderness. NEUROLOGICAL: Awake and alert. Motor and sensory grossly within normal limits. Normal speech. Medications and IVs Current Medications Medications (Trade) Dose Ordered Sig/Sabino Route Start Time Stop Time Status Last Admin (NS Flush) 2 ml UNSCH PRN IV FLUSH 03/17/17 17:15 (NS Flush) 2 ml BID IV FLUSH 03/17/17 21:00 03/18/17 21:38 (Tylenol) 650 mg Q4H PRN PO 03/17/17 17:15 (Zofran Inj) 4 mg Q6H PRN IVP 03/17/17 17:15 (Heparin Inj) 5,000 units Q12HR SQ 03/17/17 17:15 03/18/17 21:37 (Narcan Inj) 0.4 mg UNSCH PRN IV PUSH 03/17/17 17:15 (Milk Of Magnesia Liq) 30 ml Q12H PRN PO 03/17/17 17:15 (Senokot) 17.2 mg Q12H PRN PO 03/17/17 17:15 (Dulcolax Supp) 10 mg DAILY PRN RECTAL 03/17/17 17:15 (Lactulose Liq) 30 ml DAILY PRN PO 03/17/17 17:15 (D50w (Vial) Inj) 50 ml UNSCH PRN IV PUSH 03/17/17 17:15 (Glucagon Inj) 1 mg UNSCH PRN OTHER 03/17/17 17:15 Pharmacy Profile Note 0 ml @ 0 mls/hr UNSCH OTHER 03/17/17 20:30 Piperacillin Sod/ Tazobactam Sod 50 ml @ 100 mls/hr Q6H IV 03/17/17 23:00 03/18/17 22:57 (Neurontin) 800 mg TID PO 03/18/17 09:00 03/18/17 18:23 (NovoLOG SUPPLEMENTAL SCALE) 1 ACHS SLIDING SCALE SQ 03/17/17 21:00 03/18/17 21:39 Vancomycin HCl 1500 mg/Sodium Chloride 515 ml @ 257.5 mls/ hr Q12H IV 03/18/17 09:00 03/18/17 22:56 Miscellaneous Information SPECIFIC LAB TO BE ROBI... ONCE ONCE .XX 03/19/17 08:45 03/19/17 08:46 (Levemir Inj) 5 units Q12HR SQ 03/18/17 21:00 03/18/17 21:39 Urinary Catheter: No Vascular Central Line Catheter: No A/P Problem List: (1) Osteomyelitis of toe of left foot ICD Code: M86.9 - Osteomyelitis of toe of left foot Status: Chronic (2) DM (diabetes mellitus), type 2, uncontrolled ICD Code: E11.65 - DM (diabetes mellitus), type 2, uncontrolled Status: Chronic (3) Hyperglycemia ICD Code: R73.9 - Hyperglycemia Status: Acute Assessment and Plan 56 y/o male with a history or DM and neuropathy with complaints of a worsening ulcer on his left foot. Sepsis due to Osteomyelitis of left foot, WBC 12.9, HR 95 ESR 86 Foot x ray reviewed and suggests osteomyelitis -Vanco IV and Zosyn IV -Consult Podiatry for recommendations -WBC scan ordered - 03/18 Vascular surgery and podiatry consult noted - BKA recommended. Hyperglycemia in an uncontrolled diabetic Glucose 377 -Accu checks AC and HS -A1C ordered, patient may need long acting insulin -Consult case management for medication assistance -special educator - 03/18 Blood sugars severely elevated - start on Levemir 5 units SQ BID. Adjust to a goal blood sugar of less than 180. Continue SSI. Diabetic neuropathy -Resume home gabapentin Tobacco abuse -Encouraged to quit DVT prophylaxis: Heparin SQ Discharge Planning Conitnue to monitor in the medical floor. Problem Qualifiers (1) DM (diabetes mellitus), type 2, uncontrolled: Qualified Codes: E11.42 - Type 2 diabetes mellitus with diabetic polyneuropathy ; E11.65 - Type 2 diabetes mellitus with hyperglycemia Amos Maloney MD Mar 18, 2017 19:10
[2017-03-18] MEDS: INSULIN DETEMIR 100 UNITS/ML VIAL SQ SCH (21:39)
--- NOTE | 2017-03-18 22:41 | RADRPT ---
EXAM DATE/TIME: 03/18/2017 21:43 [facility] COMPARISON: No previous studies available for comparison. INDICATIONS : Bruit. MEDICAL HISTORY : Diabetes. Anxiety. Gangrene. Peripheral vascular disease. SURGICAL HISTORY : Hernia repair. Lip surgery. ENCOUNTER: Initial ACUITY: 1 day PAIN SCORE: 0/10 LOCATION: Bilateral neck PEAK SYSTOLIC VELOCITIES (cm/sec): ICA/CCA RATIO: Right: 0.6 Left: 1.0 ICA: Right: 62 Left: 82 CCA: Right: 97 Left: 86 ECA: Right: 123 Left: 96 VERTEBRAL: Right: 33 antegrade Left: 48 antegrade Elevated flow velocities and ICA/CCA ratios have been found to correlate with increased degrees of vessel stenosis, calculated as percentage of diameter relative to a normal segment of distal ICA/CCA FINDINGS: RIGHT CAROTID: No significant stenosis is visualized. The waveforms are within normal limits. LEFT CAROTID: No significant stenosis is visualized. The waveforms are within normal limits. VERTEBRAL ARTERIES: Antegrade flow is seen in both vertebral arteries. MISCELLANEOUS: None. CONCLUSION: No acute disease. Christofer Barron MD on March 18, 2017 at 22:37 Board Certified Radiologist. This report was verified electronically.
[2017-03-18] MEDS ORDERED: IOHEXOL 350 MG/ML 10 ML VIAL (for RAD DIAG) IVCONTRAST ONE (22:57)
[2017-03-19] VITALS: BP 109/78; PULSE 90; RESP 20; TEMP 97.8; O2SAT 95
[2017-03-19 04:00] VITALS: BP 130/79; PULSE 90; RESP 20; TEMP 99.4; O2SAT 94
[2017-03-19] MEDS: PIPERACIL-TAZO 3.375 GM PREMIX 50 ML IV SCH ×4 (05:50→23:56)
[2017-03-19 08:00] VITALS: BP 135/81; PULSE 85; RESP 20; TEMP 98; O2SAT 94
--- NOTE | 2017-03-19 08:19 | RADRPT ---
EXAM DATE/TIME: 03/18/2017 22:28 [facility] COMPARISON: FOOT LEFT COMPLETE ([id number]), March 17, 2017, 16:23. INDICATIONS : Severe gangrene bilateral toes. IV CONTRAST: 100 cc Omnipaque 350 (iohexol) IV RADIATION DOSE: 2.84 CTDIvol (mGy) MEDICAL HISTORY : Diabetes mellitus type 1. SURGICAL HISTORY : Toe amputations. ENCOUNTER: Initial ACUITY: 3 weeks PAIN SCALE: 10/10 LOCATION: Bilateral leg. TECHNIQUE: Volumetric scanning was performed using a multi-row detector CT scanner. The data was post processed with a variety of visualization algorithms including full volume maximum intensity projection, multi -planar sliding thin slab reformation, curved planar reformation, and surface rendering techniques. Using automated exposure control and adjustment of the mA and/or kV according to patient size, radiat ion dose was kept as low as reasonably achievable to obtain optimal diagnostic quality images. DICO M format image data is available electronically for review and comparison. FINDINGS: AORTA: Mild distal aortic catheter a 5 plac without significant flow-limiting stenosis or aneurysm. VISCERAL ARTERIES: Single bilateral renal arteries which are widely patent. Celiac, SMA, and EMMETT are widely patent. RIGHT LEG: INFLOW: Mild eccentric mixed plaque throughout the common iliac artery without significant flow-limiting sten osis. Internal iliac artery is patent. External iliac artery is patent. Eccentric mixed plaque in the mid to distal common femoral artery with resultant mild stenosis. OUTFLOW: Profunda femoris and SFA are patent. Popliteal artery is patent. RUNOFF: Evaluation is limited due to significant venous contamination. However, there appears to be three-ves carlos runoff to the distal calf. The posterior and anterior tibial arteries are very small in caliber n ear the ankle LEFT LEG: INFLOW: No iliac inflow stenosis. Common femoral artery is patent. OUTFLOW: Profunda is patent. SFA is patent. Popliteal artery is patent. RUNOFF: Evaluation is limited due to significant venous contamination. Anterior tibial artery appears to be d iminutive in caliber and likely occluded in the midcalf. The artery is likely occluded near the origi n. Runoff appears to be primarily via the posterior tibial artery. GENERAL FINDINGS: Mild bibasilar ground glass opacities consistent with atelectasis. Healed left sided rib fractures. E valuation of the abdomen is limited due to arterial phase technique. Liver, spleen, gallbladder, and pancreas are unremarkable. There is adreniform enlargement of the left adrenal gland. Kidneys demonst rate symmetrical enhancement and size with punctate less than 2 mm and calyceal calcification in the inferior pole of the left kidney. No hydronephrosis. There is a 1.8 cm cyst in the anterior right mid kidney. Bowel appears grossly unremarkable without evidence for obstruction. No free fluid or free a ir. Bladder is mildly distended but otherwise unremarkable. Prostate and seminal vesicles are within norm al limits. There is a small left inguinal fat containing hernia. There are multiple enlarged bilatera l inguinal nodes measuring up to 2.8 x 4.5 cm on the right and 2.5 x 4.1 cm on the left. Significant diffuse soft tissue edema and skin thickening at the level of the ankle extending to the feet bilaterally. Partially imaged significant inflammatory change in the medial right mid foot and l ateral left mid foot with significant erosive bony change involving the metatarsals and proximal phal anges and apparent open wound extending to the left fifth proximal metatarsal. CONCLUSION: 1. No significant aortic occlusive disease or iliac inflow stenosis. 2. No significant outflow stenosis. 3. Limited evaluation of the runoff vessels due to venous contamination secondary to significant hype remia. There does appear to be limited runoff bilaterally, worse on the left - with apparent single v essel posterior tibial artery runoff. 4. Findings consistent with significant cellulitis of the distal ankles/feet bilaterally with combina tion of chronic and acute erosive bony changes most notably in the proximal left fifth metatarsal con sistent with osteomyelitis. 5. Bulky bilateral inguinal adenopathy, likely infectious/inflammatory in etiology. 6. Additional ancillary findings, as above. Hunter Barahona MD on March 19, 2017 at 8:01 Board Certified Radiologist. This report was verified electronically.
[2017-03-19] MEDS: SODIUM CHLORIDE 0.9% FLUSH 10 ML FLUSH IV FLUSH SCH ×2 (08:40→20:17)
[2017-03-19] MEDS: INSULIN DETEMIR 100 UNITS/ML VIAL SQ SCH ×2 (08:40→21:59)
[2017-03-19] MEDS: GABAPENTIN 400 MG CAP PO SCH ×3 (08:40→17:57)
[2017-03-19] MEDS: INSULIN ASPART SUPPLEMENTAL SCALE SQ SCH ×4 (08:41→21:59)
[2017-03-19] MEDS: HEPARIN SODIUM - SQ 10,000 UNITS/ML VIAL SQ SCH ×2 (08:42→20:18)
[2017-03-19] MEDS ORDERED: PHARMACY ORDERED LAB ONE (08:45)
[2017-03-19 10:19] LABS: CREATININE 0.75 MG/DL (0.60-1.30)
[2017-03-19] MEDS: VANCOMYCIN 1,500 MG/NS 500 ML IV SCH ×4 (10:57→20:17)
--- NOTE | 2017-03-19 11:31 | RADRPT ---
EXAM DATE/TIME: 03/18/2017 13:33 [facility] COMPARISON: FOOT LEFT COMPLETE ([id number]), March 17, 2017, 16:23. INDICATIONS : Left foot ulcer. DOSE: 21.3 mCi Tc99m Ceretec labeled white blood cells IV SPECT IMAGIN hrs, 20 hrs IMAGNG: SPECT/CT imaging with fusion was performed. RADIATION DOSE: 4.7 CTDIvol (mGy) MEDICAL HISTORY : Diabetes mellitus type 2. SURGICAL HISTORY : Left great toe amputation. ENCOUNTER: Initial ACUITY: 3 weeks PAIN SCALE: 4/10 LOCATION: Left foot. TECHNIQUE: Following the in vitro labeling of autologous white cells and reinjection, whole body scan was perfor med at the specified times. SPECT imaging was performed at the specified time in sagittal, axial and coronal planes. Attenuation correction was performed with the computed tomography and both the atten uation correction and non-attenuation corrected data sets were reviewed. FINDINGS: There is abnormal uptake of radiotracer within the distal fifth metatarsal of the left foot consisten t with osteomyelitis. There are deformities and amputations of the left foot as seen on previous plai n radiograph. There is some ulceration of the distal fourth but no evidence for osteomyelitis of flavio ining bones of the left foot. There is also intense radiotracer uptake within the distal second metat arsal of the right foot and at the base of the proximal phalanx of the second toe. Additional osteomy elitis of the remaining distal third metatarsal and proximal phalanx of the third toe. CONCLUSION: 1. Osteomyelitis of the distal fifth metatarsal of the left foot. 2. Osteomyelitis of the distal second and third metatarsal and proximal phalanges of the second and t hird digits of the right foot. Yonatan Mccarthy MD on March 19, 2017 at 11:24 Board Certified Radiologist. This report was verified electronically.
[2017-03-19 12:00] VITALS: BP 123/61; PULSE 92; RESP 20; TEMP 97.8; O2SAT 96
--- NOTE | 2017-03-19 13:19 | HHI.PR ---
Subjective Remarks The pt did not want to pursue amputation. He was hoping there could be a more minor surgery performed. He said his right lower extremity also was in bad shape. Objective Vitals Vital Signs Date Time Temp Pulse Resp B/P (MAP) Pulse Ox O2 Delivery O2 Flow Rate FiO2 03/19/17 08:00 98.0 85 20 135/81 (99) 94 03/19/17 04:00 99.4 90 20 130/79 (96) 94 03/19/17 00:00 97.8 90 20 109/78 (88) 95 03/18/17 18:00 98.4 91 20 143/81 (101) 96 I/O 03/18/17 03/18/17 03/18/17 03/19/17 03/19/17 03/19/17 07:00 15:00 23:00 07:00 15:00 23:00 Intake Total 220 ml 840 ml 885 ml Output Total 600 ml 350 ml 400 ml Balance -380 ml 490 ml 485 ml Intake Oral 220 ml 840 ml 320 ml IV Total 565 ml Output Urine Total 600 ml 350 ml 400 ml # Bowel Movements 1 0 Result Diagram: 03/18/17 0443 03/19/17 0850 Imaging Last Impressions Tumor Localization 03/18/17 0000 Signed Impressions: Service Date/Time: Saturday, March 18, 2017 13:33 - CONCLUSION: 1. Osteomyelitis of the distal fifth metatarsal of the left foot. 2. Osteomyelitis of the distal second and third metatarsal and proximal phalanges of the second and third digits of the right foot. Yonatan Mccarthy MD Carotid Artery Ultrasound 03/18/17 0000 Signed Impressions: Service Date/Time: Saturday, March 18, 2017 21:43 - CONCLUSION: No acute disease. Christofer Barron MD Aorta w/Runoff CTA 03/18/17 0000 Signed Impressions: Service Date/Time: Saturday, March 18, 2017 22:28 - CONCLUSION: 1. No significant aortic occlusive disease or iliac inflow stenosis. 2. No significant outflow stenosis. 3. Limited evaluation of the runoff vessels due to venous contamination secondary to significant hyperemia. There does appear to be limited runoff bilaterally, worse on the left - with apparent single vessel posterior tibial artery runoff. 4. Findings consistent with significant cellulitis of the distal ankles/feet bilaterally with combination of chronic and acute erosive bony changes most notably in the proximal left fifth metatarsal consistent with osteomyelitis. 5. Bulky bilateral inguinal adenopathy, likely infectious/inflammatory in etiology. 6. Additional ancillary findings, as above. Hunter Barahona MD Foot X-Ray 03/17/17 1613 Signed Impressions: Service Date/Time: Friday, March 17, 2017 16:23 - CONCLUSION: Findings of involvement of the metatarsal phalangeal joint toes #3 and 4 with involvement of the distal shaft of the fourth metatarsal suggesting osteomyelitis in or associated septic arthritis both sides of the joints. Jaxon Lisa MD Head CT 03/17/17 1138 Signed Impressions: Service Date/Time: Friday, March 17, 2017 12:12 - CONCLUSION: 1. No acute intracranial abnormality is identified. There is encephalomalacia likely related to old ischemia in the right frontal periventricular white matter. 2. There is a 3.7 cm subcutaneous mass in the left inferior occipital region. The appearance favors a sebaceous cyst or epidermal inclusion cyst. Suggest correlating with clinical examination to ensure that a more concerning abnormality is not present in this area. 3. Complete opacification of the partially visualized left maxillary sinus. Melquiades Vann MD Objective Remarks GENERAL: This is a well-nourished, well-developed patient, in no apparent distress. SKIN: Plantar ulcer to left foot, necrotic and foul smelling, brownish yellow drainage. HEAD: Atraumatic. Normocephalic. EYES: Pupils equal round and reactive. Extraocular motions intact. ENT: Nose without bleeding, purulent drainage or septal hematoma. Airway patent. NECK: Trachea midline. No JVD or lymphadenopathy. CARDIOVASCULAR: Regular rate and rhythm without murmurs, gallops, or rubs. Diminished pedal pulses. RESPIRATORY: Clear to auscultation. Breath sounds equal bilaterally. No wheezes , rales, or rhonchi. GASTROINTESTINAL: Abdomen soft, non-tender, nondistended. No guarding. MUSCULOSKELETAL: Extremities without clubbing, cyanosis, or edema. No calf tenderness. NEUROLOGICAL: Awake and alert. Motor and sensory grossly within normal limits. Normal speech. Medications and IVs Current Medications Medications (Trade) Dose Ordered Sig/Sabino Route Start Time Stop Time Status Last Admin (NS Flush) 2 ml UNSCH PRN IV FLUSH 03/17/17 17:15 (NS Flush) 2 ml BID IV FLUSH 03/17/17 21:00 03/19/17 08:40 (Tylenol) 650 mg Q4H PRN PO 03/17/17 17:15 (Zofran Inj) 4 mg Q6H PRN IVP 03/17/17 17:15 (Heparin Inj) 5,000 units Q12HR SQ 03/17/17 17:15 03/19/17 08:42 (Narcan Inj) 0.4 mg UNSCH PRN IV PUSH 03/17/17 17:15 (Milk Of Magnesia Liq) 30 ml Q12H PRN PO 03/17/17 17:15 (Senokot) 17.2 mg Q12H PRN PO 03/17/17 17:15 (Dulcolax Supp) 10 mg DAILY PRN RECTAL 03/17/17 17:15 (Lactulose Liq) 30 ml DAILY PRN PO 03/17/17 17:15 (D50w (Vial) Inj) 50 ml UNSCH PRN IV PUSH 03/17/17 17:15 (Glucagon Inj) 1 mg UNSCH PRN OTHER 03/17/17 17:15 Pharmacy Profile Note 0 ml @ 0 mls/hr UNSCH OTHER 03/17/17 20:30 Piperacillin Sod/ Tazobactam Sod 50 ml @ 100 mls/hr Q6H IV 03/17/17 23:00 03/19/17 05:50 (Neurontin) 800 mg TID PO 03/18/17 09:00 03/19/17 08:40 (NovoLOG SUPPLEMENTAL SCALE) 1 ACHS SLIDING SCALE SQ 03/17/17 21:00 03/19/17 08:41 Vancomycin HCl 1500 mg/Sodium Chloride 515 ml @ 257.5 mls/ hr Q12H IV 03/18/17 09:00 03/19/17 10:57 (Levemir Inj) 5 units Q12HR SQ 03/18/17 21:00 03/19/17 08:40 A/P Problem List: (1) Osteomyelitis of toe of left foot ICD Code: M86.9 - Osteomyelitis of toe of left foot Status: Chronic (2) DM (diabetes mellitus), type 2, uncontrolled ICD Code: E11.65 - DM (diabetes mellitus), type 2, uncontrolled Status: Chronic (3) Hyperglycemia ICD Code: R73.9 - Hyperglycemia Status: Acute Assessment and Plan 56 y/o male with a history or DM and neuropathy with complaints of a worsening ulcer on his left foot. Sepsis due to osteomyelitis of left foot, WBC 12.9, HR 95 ESR 86 Foot x ray reviewed and suggests osteomyelitis. MRI and WBC scan confirms OM. CTA runoff noted. -Vanco IV and Zosyn IV - podiatry following. - 03/18 Vascular surgery and podiatry consult noted - BKA recommended. Hyperglycemia in an uncontrolled diabetic Glucose 377 -Accu checks AC and HS -A1C ordered, patient may need long acting insulin -Consult case management for medication assistance -cook roast - 03/18 Blood sugars severely elevated - start on Levemir 5 units SQ BID. Adjust to a goal blood sugar of less than 180. Continue SSI. Diabetic neuropathy -Resume home gabapentin Tobacco abuse -Encouraged to quit DVT prophylaxis: Heparin SQ Discharge Planning Awaiting BKA Problem Qualifiers (1) DM (diabetes mellitus), type 2, uncontrolled: Qualified Codes: E11.42 - Type 2 diabetes mellitus with diabetic polyneuropathy ; E11.65 - Type 2 diabetes mellitus with hyperglycemia Chester Torres DO Mar 19, 2017 13:18
--- NOTE | 2017-03-19 14:31 | PD.WCN.NOT ---
Wound Consult Description: Wound consult ordered by for left foot diabetic ulcer, left buttocks. Communicated with: Phoebe HERR [place], Recommendation: 1) Encourage patient to reposition every 2 hours for comfort and offloading 2) Apply thick layer of Calazime cream to R/L buttocks BID 3) Reconsult wound care if needed for Left foot. Additional Information: Patient was seen today on [facility] by brief writer for diabetic ulcer of left foot and pressure injury to left buttocks. present in room upon arrival discussing care plan for Left foot in which he has patient scheduled for amputation 03/20. Left foot dressing changed just prior to brief writer arrival .Patient refused dressing to be removed.Patient required assistive device to stand . Assessment findings patient has a healing intact ,nonblanching pressure injury to Left inner buttocks measuring ~0.5cm x ~0.5cm .No drainage or odor noted periwound intact dry, shows no signs or symptoms of infection. Wound cleansed with normal saline pat dry Calazime applied to wound base and covered with dry dressing per patients request sign and dated. Nisa King [facility] Mar 19, 2017 14:31
[2017-03-19 16:00] VITALS: BP 123/77; PULSE 85; RESP 20; TEMP 97.8; O2SAT 97
--- NOTE | 2017-03-19 16:43 | PD.CAR.PN ---
CVT Progress Note Subjective/Hospital Course: Patient with severe peripheral vascular disease medical noncompliance. Gangrene of the left foot and deformity and incipient gangrene of the right foot I agree with Dr. Hu that there is nothing to do for the left foot and below-knee amputation is the only option I will order CTA with a runoff to see how the right side looks like if there is any way to improve the blood flow there for the right foot will go the same way otherwise very soon Full consult dictated Thanks Charlotte 03/19/17 This gentleman is admitted for florid gangrene and osteomyelitis of the left foot and incipient osteomyelitis and gangrene of the right foot Patient needs urgent left below-knee amputation for otherwise he will eventually from this infection for he'll develop either endocarditis renal failure or both I discussed this with patient in detail and at this point he refuses surgery As far as the right leg is concerned that one is going the same way and in the near future patient will require right below-knee amputation There are no other options available this time with this extensive gangrene of the both sides Patient has aortogram with a runoff does reveals good inflow and then the level of the knee anterior tibial and peroneal arteries are occluded and posterior tibial arteries are the only flow to the feet and while there is some bits and pieces of anterior tibial artery but this is the for most part of occluded Carotid ultrasound is okay and nothing needs to be done about this further Again patient this point to refuses surgery so we'll see which way this goes Objective: Vital Signs Date Time Temp Pulse Resp B/P (MAP) Pulse Ox O2 Delivery O2 Flow Rate FiO2 03/19/17 12:00 97.8 92 20 123/61 (81) 96 03/19/17 08:00 98.0 85 20 135/81 (99) 94 03/19/17 04:00 99.4 90 20 130/79 (96) 94 03/19/17 00:00 97.8 90 20 109/78 (88) 95 03/18/17 18:00 98.4 91 20 143/81 (101) 96 Labs: Laboratory Tests Test 03/19/17 08:50 Creatinine 0.75 MG/DL (0.60-1.30) Estimat Glomerular Filtration Rate 108 ML/MIN (>89) Vancomycin Level Trough 15.7 MCG/ML (5.0-10.0) Result Diagram: 03/18/17 0443 03/19/17 0850 Tierra Bennett MD Mar 19, 2017 16:43
[2017-03-19 20:46] VITALS: BP 116/72; PULSE 84; RESP 20; TEMP 97.2; O2SAT 96
[2017-03-20 00:50] VITALS: BP 121/76; PULSE 77; RESP 20; TEMP 98; O2SAT 97
[2017-03-20 04:51] VITALS: BP 119/76; PULSE 83; RESP 16; TEMP 97.6; O2SAT 96
[2017-03-20] MEDS: PIPERACIL-TAZO 3.375 GM PREMIX 50 ML IV SCH ×4 (05:22→23:10)
[2017-03-20] MEDS ORDERED: POVIDONE IODINE 5% (ANTISEPSIS KIT) 4 APPLICATIONS EACH NARE PRN (07:15)
[2017-03-20] MEDS ORDERED: CHLORHEXIDINE GLUCONATE 2 % 1 PACK (2 CLOTHS) TOPICAL PRN (07:15)
[2017-03-20] MEDS ORDERED: SODIUM CHLORID 0.9% 500 ML IV PRN (07:15)
[2017-03-20] MEDS ORDERED: LACTATED RINGER'S 1000 ML IV PRN (07:15)
[2017-03-20 07:18] LABS: HEMATOCRIT 31.6 % (39.0-51.0); HEMOGLOBIN 10.2 GM/DL (13.0-17.0); MEAN CELL VOLUME 83.9 FL (80.0-100.0); MEAN CORPUSCULAR HGB CONC 32.2 % (32.0-36.0); MEAN PLATELET VOLUME 7.1 FL (7.0-11.0); PLATELET COUNT 592 TH/MM3 (150-450); RED BLOOD COUNT 3.76 MIL/MM3 (4.50-5.90); RED CELL DISTRIBUTION WIDTH 14.7 % (11.6-17.2); WHITE BLOOD COUNT 8.2 TH/MM3 (4.0-11.0)
[2017-03-20 08:00] VITALS: BP 129/76; PULSE 82; RESP 18; TEMP 98.9; O2SAT 95
[2017-03-20] MEDS ORDERED: ACETAMINOPHEN 1000 MG/100 ML 100 ML IV ONE (08:41)
[2017-03-20] MEDS: GABAPENTIN 400 MG CAP PO SCH ×3 (08:41→16:51)
[2017-03-20] MEDS ORDERED: SUGAMMADEX SODIUM 200 MG/2 ML VIAL IV PUSH ONE (08:42)
[2017-03-20] MEDS: HEPARIN SODIUM - SQ 10,000 UNITS/ML VIAL SQ SCH ×2 (08:42→20:47)
[2017-03-20] MEDS ORDERED: HYDROmorphone HCL PF 2 MG/ML VIAL ONE (08:42)
[2017-03-20] MEDS: INSULIN DETEMIR 100 UNITS/ML VIAL SQ SCH ×2 (08:43→21:00)
[2017-03-20] MEDS: INSULIN ASPART SUPPLEMENTAL SCALE SQ SCH ×4 (08:44→21:00)
[2017-03-20] MEDS: SODIUM CHLORIDE 0.9% FLUSH 10 ML FLUSH IV FLUSH SCH ×2 (09:00→20:47)
[2017-03-20] MEDS: VANCOMYCIN 1,500 MG/NS 500 ML IV SCH ×4 (09:34→20:54)
--- NOTE | 2017-03-20 10:55 | PD.CAR.PN ---
CVT Progress Note Subjective/Hospital Course: Patient with severe peripheral vascular disease medical noncompliance. Gangrene of the left foot and deformity and incipient gangrene of the right foot I agree with Dr. Hu that there is nothing to do for the left foot and below-knee amputation is the only option I will order CTA with a runoff to see how the right side looks like if there is any way to improve the blood flow there for the right foot will go the same way otherwise very soon Full consult dictated Thanks Charlotte 03/19/17 This gentleman is admitted for florid gangrene and osteomyelitis of the left foot and incipient osteomyelitis and gangrene of the right foot Patient needs urgent left below-knee amputation for otherwise he will eventually from this infection for he'll develop either endocarditis renal failure or both I discussed this with patient in detail and at this point he refuses surgery As far as the right leg is concerned that one is going the same way and in the near future patient will require right below-knee amputation There are no other options available this time with this extensive gangrene of the both sides Patient has aortogram with a runoff does reveals good inflow and then the level of the knee anterior tibial and peroneal arteries are occluded and posterior tibial arteries are the only flow to the feet and while there is some bits and pieces of anterior tibial artery but this is the for most part of occluded Carotid ultrasound is okay and nothing needs to be done about this further Again patient this point to refuses surgery so we'll see which way this goes 03/20/17 Patient today again questions need for surgery and I will not be the one to convince him one way or the other. At this point patient has significant left groin lymphadenopathy and ankle area is starting to get red and swollen. The catheter is also more swollen so I believe the infection and inflammation are spreading proximally I've done everything I can to explained to the patient that right now gangrenous foot is beyond salvage and at this point we are saving his life not his leg. Patient agreed to staged below-knee amputation. In face of swelling and infection today he will undergo guillotine below-knee amputation, placement of wound VAC and then in next few days we will schedule him for actual closure of the amputation stump, for otherwise the amputation stump will of course get infected Objective: Vital Signs Date Time Temp Pulse Resp B/P (MAP) Pulse Ox O2 Delivery O2 Flow Rate FiO2 2/2/18 08:00 98.9 82 18 129/76 (93) 95 03/20/17 04:51 97.6 83 16 119/76 (90) 96 03/20/17 00:50 98.0 77 20 121/76 (91) 97 03/19/17 20:46 97.2 84 20 116/72 (87) 96 03/19/17 16:00 97.8 85 20 123/77 (92) 97 03/19/17 12:00 97.8 92 20 123/61 (81) 96 Labs: Laboratory Tests Test 03/20/17 05:15 White Blood Count 8.2 TH/MM3 (4.0-11.0) Red Blood Count 3.76 MIL/MM3 (4.50-5.90) Hemoglobin 10.2 GM/DL (13.0-17.0) Hematocrit 31.6 % (39.0-51.0) Mean Corpuscular Volume 83.9 FL (80.0-100.0) Mean Corpuscular Hemoglobin 27.0 PG (27.0-34.0) Mean Corpuscular Hemoglobin Concent 32.2 % (32.0-36.0) Red Cell Distribution Width 14.7 % (11.6-17.2) Platelet Count 592 TH/MM3 (150-450) Mean Platelet Volume 7.1 FL (7.0-11.0) Prothrombin Time 10.0 SEC (9.8-11.6) Prothromb Time International Ratio 1.0 RATIO Activated Partial Thromboplast Time 32.4 SEC (24.3-30.1) Result Diagram: 03/20/17 0515 03/19/17 0850 Tierra Bennett MD Mar 20, 2017 10:54
[2017-03-20] MEDS ORDERED: PROPOFOL 200 MG/20 ML AMP IV ONE (12:00)
[2017-03-20] MEDS ORDERED: LACTATED RINGER'S 1000 ML INJ 2,000 ML IV ONE (12:00)
[2017-03-20] MEDS ORDERED: ESMOLOL HCL 100 MG/10 ML VIAL IV ONE (12:00)
[2017-03-20] MEDS ORDERED: ePHEDrine/NS 25 MG/5 ML SYRINGE IV ONE (12:00)
[2017-03-20] MEDS ORDERED: ROCURONIUM INJ 50 MG/5 ML SYRINGE IV PUSH ONE (12:00)
[2017-03-20] MEDS ORDERED: PHENYLEPH/NS 1000 MCG/10 ML SYR IV ONE (12:00)
[2017-03-20] MEDS ORDERED: LIDOCAINE HCL 1% PF 5 ML SYRINGE OTHER ONE (12:00)
[2017-03-20] MEDS ORDERED: ONDANSETRON HCL 4 MG/2 ML VIAL IV ONE (12:00)
[2017-03-20] MEDS ORDERED: DO NOT ADM ANY ANTICOAGULANT DRUGS PRN (12:19)
[2017-03-20] MEDS ORDERED: MIDAZOLAM HCL 2 MG/2 ML VIAL ONE (12:27)
[2017-03-20 13:44] VITALS: BP 109/64; PULSE 78; RESP 18; TEMP 98.1; O2SAT 95
--- NOTE | 2017-03-20 14:42 | HHI.PR ---
Subjective Remarks The patient was seen following surgery. He was having lunch. He said that he would like some pain medications. He said he was told he would need further surgery on the lower extremity. Discussed with nursing at the bedside. Objective Vitals Vital Signs Date Time Temp Pulse Resp B/P (MAP) Pulse Ox O2 Delivery O2 Flow Rate FiO2 03/20/17 13:44 98.1 78 18 109/64 (79) 95 03/20/17 12:30 83 12 108/66 (80) 94 Nasal Cannula 2 03/20/17 12:17 97.4 91 14 114/65 (81) 96 Simple Mask 6 03/20/17 08:00 98.9 82 18 129/76 (93) 95 03/20/17 04:51 97.6 83 16 119/76 (90) 96 03/20/17 00:50 98.0 77 20 121/76 (91) 97 03/19/17 20:46 97.2 84 20 116/72 (87) 96 03/19/17 16:00 97.8 85 20 123/77 (92) 97 I/O 03/19/17 03/19/17 03/19/17 03/20/17 03/20/17 03/20/17 07:00 15:00 23:00 07:00 15:00 23:00 Intake Total 885 ml 480 ml 2000 ml Output Total 400 ml 500 ml Balance 485 ml 480 ml 1500 ml Intake Oral 320 ml 480 ml IV Total 565 ml 2000 ml Output Urine Total 400 ml 400 ml Estimated Blood Loss 100 ml # Voids 3 2 # Bowel Movements 0 0 Result Diagram: 03/20/17 0515 03/19/17 0850 Imaging Last Impressions Tumor Localization 03/18/17 0000 Signed Impressions: Service Date/Time: Saturday, March 18, 2017 13:33 - CONCLUSION: 1. Osteomyelitis of the distal fifth metatarsal of the left foot. 2. Osteomyelitis of the distal second and third metatarsal and proximal phalanges of the second and third digits of the right foot. Yonatan Mccarthy MD Carotid Artery Ultrasound 03/18/17 0000 Signed Impressions: Service Date/Time: Saturday, March 18, 2017 21:43 - CONCLUSION: No acute disease. Christofer Barron MD Aorta w/Runoff CTA 03/18/17 0000 Signed Impressions: Service Date/Time: Saturday, March 18, 2017 22:28 - CONCLUSION: 1. No significant aortic occlusive disease or iliac inflow stenosis. 2. No significant outflow stenosis. 3. Limited evaluation of the runoff vessels due to venous contamination secondary to significant hyperemia. There does appear to be limited runoff bilaterally, worse on the left - with apparent single vessel posterior tibial artery runoff. 4. Findings consistent with significant cellulitis of the distal ankles/feet bilaterally with combination of chronic and acute erosive bony changes most notably in the proximal left fifth metatarsal consistent with osteomyelitis. 5. Bulky bilateral inguinal adenopathy, likely infectious/inflammatory in etiology. 6. Additional ancillary findings, as above. Hunter Barahona MD Foot X-Ray 03/17/17 1613 Signed Impressions: Service Date/Time: Friday, March 17, 2017 16:23 - CONCLUSION: Findings of involvement of the metatarsal phalangeal joint toes #3 and 4 with involvement of the distal shaft of the fourth metatarsal suggesting osteomyelitis in or associated septic arthritis both sides of the joints. Jaxon Lisa MD Head CT 03/17/17 1138 Signed Impressions: Service Date/Time: Friday, March 17, 2017 12:12 - CONCLUSION: 1. No acute intracranial abnormality is identified. There is encephalomalacia likely related to old ischemia in the right frontal periventricular white matter. 2. There is a 3.7 cm subcutaneous mass in the left inferior occipital region. The appearance favors a sebaceous cyst or epidermal inclusion cyst. Suggest correlating with clinical examination to ensure that a more concerning abnormality is not present in this area. 3. Complete opacification of the partially visualized left maxillary sinus. Melquiades Vann MD Objective Remarks GENERAL: This is a well-nourished, well-developed patient, in no apparent distress. SKIN: Left lower extremity with amputation of foot and wound VAC in place. HEAD: Atraumatic. Normocephalic. EYES: Pupils equal round and reactive. Extraocular motions intact. ENT: Nose without bleeding, purulent drainage or septal hematoma. Airway patent. NECK: Trachea midline. No JVD or lymphadenopathy. CARDIOVASCULAR: Regular rate and rhythm without murmurs, gallops, or rubs. Diminished pedal pulses. RESPIRATORY: Clear to auscultation. Breath sounds equal bilaterally. No wheezes , rales, or rhonchi. GASTROINTESTINAL: Abdomen soft, non-tender, nondistended. No guarding. MUSCULOSKELETAL: Left lower extremity amputated at the leg with wound VAC in place. NEUROLOGICAL: Awake and alert. Motor and sensory grossly within normal limits. Normal speech. Procedures Amputation of left lower extremity 03/20/17 Medications and IVs Current Medications Medications (Trade) Dose Ordered Sig/Sabino Route Start Time Stop Time Status Last Admin (NS Flush) 2 ml UNSCH PRN IV FLUSH 03/17/17 17:15 (NS Flush) 2 ml BID IV FLUSH 03/17/17 21:00 03/19/17 20:17 (Tylenol) 650 mg Q4H PRN PO 03/17/17 17:15 (Zofran Inj) 4 mg Q6H PRN IVP 03/17/17 17:15 (Heparin Inj) 5,000 units Q12HR SQ 03/17/17 17:15 03/19/17 20:18 (Narcan Inj) 0.4 mg UNSCH PRN IV PUSH 03/17/17 17:15 (Milk Of Magnesia Liq) 30 ml Q12H PRN PO 03/17/17 17:15 (Senokot) 17.2 mg Q12H PRN PO 03/17/17 17:15 (Dulcolax Supp) 10 mg DAILY PRN RECTAL 03/17/17 17:15 (Lactulose Liq) 30 ml DAILY PRN PO 03/17/17 17:15 (D50w (Vial) Inj) 50 ml UNSCH PRN IV PUSH 03/17/17 17:15 (Glucagon Inj) 1 mg UNSCH PRN OTHER 03/17/17 17:15 Pharmacy Profile Note 0 ml @ 0 mls/hr UNSCH OTHER 03/17/17 20:30 Piperacillin Sod/ Tazobactam Sod 50 ml @ 100 mls/hr Q6H IV 03/17/17 23:00 03/20/17 12:30 (Neurontin) 800 mg TID PO 03/18/17 09:00 03/19/17 17:57 (NovoLOG SUPPLEMENTAL SCALE) 1 ACHS SLIDING SCALE SQ 03/17/17 21:00 03/20/17 13:03 Vancomycin HCl 1500 mg/Sodium Chloride 515 ml @ 257.5 mls/ hr Q12H IV 03/18/17 09:00 03/20/17 09:34 (Levemir Inj) 5 units Q12HR SQ 03/18/17 21:00 03/20/17 08:43 Lactated Ringer's 1,000 ml @ 30 mls/hr Q24H PRN IV 03/20/17 07:15 03/23/17 07:14 Sodium Chloride 500 ml @ 30 mls/hr [id number] PRN IV 03/20/17 07:15 03/23/17 07:14 (Betadine 5% Antisepsis Kit) 1 applic MANAGER BENCH PRN EACH NARE 03/20/17 07:15 03/23/17 07:14 (Chlorhexidine 2% Cloth) 3 pack MANAGER BENCH PRN TOPICAL 03/20/17 07:15 03/23/17 07:14 Miscellaneous Information ALL NURSING DEPARTME... UNSCH PRN .XX 03/20/17 12:19 03/21/17 12:18 ([place] 7.5-325 Mg) 1 tab Q4H PRN PO 03/20/17 14:30 UNV (Morphine Inj) 4 mg Q4H PRN IV PUSH 03/20/17 14:30 UNV A/P Problem List: (1) Osteomyelitis of toe of left foot ICD Code: M86.9 - Osteomyelitis of toe of left foot Status: Chronic (2) DM (diabetes mellitus), type 2, uncontrolled ICD Code: E11.65 - DM (diabetes mellitus), type 2, uncontrolled Status: Chronic (3) Hyperglycemia ICD Code: R73.9 - Hyperglycemia Status: Acute Assessment and Plan Sepsis Due to osteomyelitis of left foot. Also with GNR bacteremia. Foot x ray reviewed and suggests osteomyelitis. MRI and WBC scan confirms OM. CTA runoff noted. Vascular surgery consult appreciated. S/p amputation of left leg with placement of wound vac. - continue vanco IV and Zosyn IV. - further management per vascular surgery. - pain control with a bowel regimen. - Infectious disease consult requested for bacteremia. DM Relatively well-controlled. - Accu checks AC and HS. 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 Tobacco abuse The pt continues to smoke. - Cessation instruction. Anemia Appears chronic. - Follow CBC. DVT prophylaxis: Heparin SQ Problem Qualifiers (1) DM (diabetes mellitus), type 2, uncontrolled: Qualified Codes: E11.42 - Type 2 diabetes mellitus with diabetic polyneuropathy ; E11.65 - Type 2 diabetes mellitus with hyperglycemia Chester Torres DO Mar 20, 2017 14:42
[2017-03-20 16:00] VITALS: BP 108/69; PULSE 87; RESP 18; TEMP 97.8; O2SAT 94
[2017-03-20] MEDS: ACETAMINOPHEN/HYDROcodone 325 MG/7.5 MG TAB PO PRN ×2 (16:52→20:47)
--- NOTE | 2017-03-20 17:23 | MB ---
cc: JAYME TORRES FRANKLYN F. MD DATE OF CONSULTATION: 03/20/2017. REASON FOR CONSULTATION: Osteomyelitis. Bacteremia. REQUESTING PHYSICIAN: Dr. Torres. HISTORY OF PRESENT ILLNESS: This is a 56-year-old white male who has diabetes mellitus. The patient presented to the emergency department on 03/17 with generalized weakness. The patient has diabetes mellitus. He is also a smoker. He was evaluated in the emergency department for worsening wound of the left foot and inability to ambulate. He apparently was not taking medications for some time before he presented to the emergency department. The patient was noted to have elevated white blood cell count and foot x-ray revealed changes suggesting osteomyelitis of the metatarsophalangeal joint of toes three and four on the left and also the distal shaft of the fourth metatarsal. He had subsequent tumor localization study that showed osteomyelitis involving the distal fifth metatarsal of the left foot and osteomyelitis of the distal second and third metatarsals and proximal phalanges of the second and third digits of the right foot. The patient subsequently was evaluated and underwent left [id number] amputation. This procedure was performed today. Blood cultures were taken on 03/17 and it has gram-negative ronald in one bottle. The final identity of that organism is pending. The patient has had no fevers. His white blood cell count was elevated and on admission has come down to normal. He also had a wound culture of the lateral plantar aspect of his left foot which came back showing heavy growth of normal skin deb and unable to rule out anaerobes due to spreading Proteus species. The patient denies chills. PAST MEDICAL HISTORY: 1. Diabetes mellitus. 2. Diabetic neuropathy. 3. History of left great toe amputation. ALLERGIES: CODEINE. MEDICATIONS: 1. [place] 7.5 PRN 2. Morphine sulfate PRN. 3. Vancomycin. 4. Neurontin. 5. Piperacillin / tazobactam. SOCIAL HISTORY: Positive tobacco use one pack a day. No alcohol. No illicit drugs. FAMILY HISTORY: Noncontributory. REVIEW OF SYSTEMS: Significant for pain in the legs. The patient denies other symptom complaints. PHYSICAL EXAMINATION: GENERAL: The patient is a well-developed male who is in no acute distress. He is awake and alert and oriented. VITAL SIGNS: Include temperature 98.1, blood pressure 109/64, respirations 18, heart rate 78. HEAD, EYES, EARS, NOSE, THROAT: Head atraumatic. Extraocular movements grossly intact. Pupils reactive to light. No icterus. Oropharynx with moist mucosa. LUNGS: Clear to auscultation. HEART: Regular S1 and S2 without murmurs, rubs or gallops. ABDOMEN: Bowel sounds present, soft, nontender. RECTAL: Not performed. EXTREMITIES: The left leg is post [id number] amputation. A vacuum device is in place and has serosanguineous drainage. The left foot has chronic tree bark changes of the skin at the base of the toes. The right great toe is post partial amputation. NEUROLOGIC: No gross focal findings. SKIN: No rash. PSYCHIATRIC: The patient is calm and cooperative. LABS: WBCs 8.2, platelets 592,000, hemoglobin 10.2. Creatinine 0.75, estimated GFR 108. IMPRESSION: Gram-negative bacteremia in a patient who is without symptoms that suggests sepsis. He is status post amputation [id number] on the left. The left foot was noted to be gangrenous and foul-smelling prior to the surgery. Wound culture from the foot had revealed heavy mixed deb and also heavy growth of normal skin deb with mixed enteric gram-negative rods. RECOMMENDATIONS: 1. Discontinue Vancomycin. 2. Continue piperacillin / tazobactam. 3. Monitor the gram-negative ronald in the blood and if it is sensitive to Levaquin, he can be treated with Levaquin or if it is sensitive to some other oral antibiotic, we can use an oral antibiotic for treatment. The organism very likely originated from the foot infection. He is clinically stable. If additional information is needed over the weekend, infectious disease on-call for the weekend can be called, otherwise the patient can be switched to an oral antibiotic to which the bacteria is sensitive and it can be treated for two weeks. Thank you for this consultation. I will be off for the next couple of days and will follow the patient on my return. Mook Jha MD FD/ZULEIKA /4:42 PM /5:02 PM [facility]PITALDeclan
[2017-03-20] MEDS: MORPHINE SULFATE 4 MG/ML INJ IV PUSH PRN ×2 (19:05→22:59)
[2017-03-20 20:00] VITALS: BP 117/76; PULSE 84; RESP 16; TEMP 98.3; O2SAT 94
[2017-03-21] VITALS: BP 115/67; PULSE 86; RESP 16; TEMP 98.7; O2SAT 94
[2017-03-21] MEDS: ACETAMINOPHEN/HYDROcodone 325 MG/7.5 MG TAB PO PRN ×2 (01:32→09:37)
[2017-03-21 04:00] VITALS: BP 131/72; PULSE 82; RESP 16; TEMP 98.4; O2SAT 94
[2017-03-21] MEDS: MORPHINE SULFATE 4 MG/ML INJ IV PUSH PRN (04:18)
[2017-03-21] MEDS: PIPERACIL-TAZO 3.375 GM PREMIX 50 ML IV SCH ×4 (04:18→22:43)
[2017-03-21 08:00] VITALS: BP 107/66; PULSE 85; RESP 16; TEMP 98; O2SAT 95
[2017-03-21] MEDS: HEPARIN SODIUM - SQ 10,000 UNITS/ML VIAL SQ SCH ×2 (09:00→21:46)
[2017-03-21] MEDS: GABAPENTIN 400 MG CAP PO SCH ×3 (09:34→17:20)
[2017-03-21] MEDS: SODIUM CHLORIDE 0.9% FLUSH 10 ML FLUSH IV FLUSH SCH ×2 (09:35→21:46)
[2017-03-21] MEDS: INSULIN ASPART SUPPLEMENTAL SCALE SQ SCH ×4 (09:35→21:00)
--- NOTE | 2017-03-21 09:43 | HHI.PR ---
Subjective Remarks The patient said that the pain in his foot was pretty bad. He wanted to know how he would ambulate as he feels very weak. He says he has had slurred speech going on for the past couple of weeks. He is agreeable to having his Donaldson catheter removed. Discussed with nursing. Objective Vitals Vital Signs Date Time Temp Pulse Resp B/P (MAP) Pulse Ox O2 Delivery O2 Flow Rate FiO2 03/21/17 08:00 98.0 85 16 107/66 (80) 95 03/21/17 04:00 98.4 82 16 131/72 (91) 94 03/21/17 00:00 98.7 86 16 115/67 (83) 94 03/20/17 20:00 98.3 84 16 117/76 (90) 94 03/20/17 16:00 97.8 87 18 108/69 (82) 94 03/20/17 13:44 98.1 78 18 109/64 (79) 95 03/20/17 12:30 83 12 108/66 (80) 94 Nasal Cannula 2 03/20/17 12:17 97.4 91 14 114/65 (81) 96 Simple Mask 6 I/O 03/20/17 03/20/17 03/20/17 03/21/17 03/21/17 03/21/17 07:00 15:00 23:00 07:00 15:00 23:00 Intake Total 2000 ml 480 ml 1095 ml Output Total 500 ml 850 ml 900 ml Balance 1500 ml -370 ml 195 ml Intake Oral 480 ml 480 ml IV Total 2000 ml 615 ml Output Urine Total 400 ml 850 ml 900 ml Estimated Blood Loss 100 ml # Voids 2 # Bowel Movements 0 Result Diagram: 03/20/17 0515 03/19/17 0850 Imaging Last Impressions Tumor Localization 03/18/17 0000 Signed Impressions: Service Date/Time: Saturday, March 18, 2017 13:33 - CONCLUSION: 1. Osteomyelitis of the distal fifth metatarsal of the left foot. 2. Osteomyelitis of the distal second and third metatarsal and proximal phalanges of the second and third digits of the right foot. Yonatan Mccarthy MD Carotid Artery Ultrasound 03/18/17 0000 Signed Impressions: Service Date/Time: Saturday, March 18, 2017 21:43 - CONCLUSION: No acute disease. Christofer Barron MD Aorta w/Runoff CTA 03/18/17 0000 Signed Impressions: Service Date/Time: Saturday, March 18, 2017 22:28 - CONCLUSION: 1. No significant aortic occlusive disease or iliac inflow stenosis. 2. No significant outflow stenosis. 3. Limited evaluation of the runoff vessels due to venous contamination secondary to significant hyperemia. There does appear to be limited runoff bilaterally, worse on the left - with apparent single vessel posterior tibial artery runoff. 4. Findings consistent with significant cellulitis of the distal ankles/feet bilaterally with combination of chronic and acute erosive bony changes most notably in the proximal left fifth metatarsal consistent with osteomyelitis. 5. Bulky bilateral inguinal adenopathy, likely infectious/inflammatory in etiology. 6. Additional ancillary findings, as above. Hunter Barahona MD Foot X-Ray 03/17/17 1613 Signed Impressions: Service Date/Time: Friday, March 17, 2017 16:23 - CONCLUSION: Findings of involvement of the metatarsal phalangeal joint toes #3 and 4 with involvement of the distal shaft of the fourth metatarsal suggesting osteomyelitis in or associated septic arthritis both sides of the joints. Jaxon Lisa MD Head CT 03/17/17 1138 Signed Impressions: Service Date/Time: Friday, March 17, 2017 12:12 - CONCLUSION: 1. No acute intracranial abnormality is identified. There is encephalomalacia likely related to old ischemia in the right frontal periventricular white matter. 2. There is a 3.7 cm subcutaneous mass in the left inferior occipital region. The appearance favors a sebaceous cyst or epidermal inclusion cyst. Suggest correlating with clinical examination to ensure that a more concerning abnormality is not present in this area. 3. Complete opacification of the partially visualized left maxillary sinus. Melquiades Vann MD Objective Remarks GENERAL: This is a well-nourished, well-developed patient, in no apparent distress. SKIN: Left lower extremity with amputation of foot and wound VAC in place. HEAD: Atraumatic. Normocephalic. Seborrhea on scalp. EYES: Pupils equal round and reactive. Extraocular motions intact. ENT: Nose without bleeding, purulent drainage or septal hematoma. Airway patent. NECK: Trachea midline. No JVD or lymphadenopathy. CARDIOVASCULAR: Regular rate and rhythm without murmurs, gallops, or rubs. Diminished pedal pulses. RESPIRATORY: Clear to auscultation. Breath sounds equal bilaterally. No wheezes , rales, or rhonchi. GASTROINTESTINAL: Abdomen soft, non-tender, nondistended. No guarding. MUSCULOSKELETAL: Left lower extremity amputated at the leg with wound VAC in place. NEUROLOGICAL: Awake and alert. Motor and sensory grossly within normal limits. Normal speech. Procedures Amputation of left lower extremity 03/20/17 Medications and IVs Current Medications Medications (Trade) Dose Ordered Sig/Sabino Route Start Time Stop Time Status Last Admin (NS Flush) 2 ml UNSCH PRN IV FLUSH 03/17/17 17:15 (NS Flush) 2 ml BID IV FLUSH 03/17/17 21:00 03/20/17 20:47 (Tylenol) 650 mg Q4H PRN PO 03/17/17 17:15 (Zofran Inj) 4 mg Q6H PRN IVP 03/17/17 17:15 (Heparin Inj) 5,000 units Q12HR SQ 03/17/17 17:15 03/20/17 20:47 (Narcan Inj) 0.4 mg UNSCH PRN IV PUSH 03/17/17 17:15 (Milk Of Magnesia Liq) 30 ml Q12H PRN PO 03/17/17 17:15 (Senokot) 17.2 mg Q12H PRN PO 03/17/17 17:15 (Dulcolax Supp) 10 mg DAILY PRN RECTAL 03/17/17 17:15 (Lactulose Liq) 30 ml DAILY PRN PO 03/17/17 17:15 (D50w (Vial) Inj) 50 ml UNSCH PRN IV PUSH 03/17/17 17:15 (Glucagon Inj) 1 mg UNSCH PRN OTHER 03/17/17 17:15 Piperacillin Sod/ Tazobactam Sod 50 ml @ 100 mls/hr Q6H IV 03/17/17 23:00 03/21/17 04:18 (Neurontin) 800 mg TID PO 03/18/17 09:00 03/20/17 16:51 (NovoLOG SUPPLEMENTAL SCALE) 1 ACHS SLIDING SCALE SQ 03/17/17 21:00 03/20/17 21:00 (Levemir Inj) 5 units Q12HR SQ 1/31/18 21:00 03/20/17 21:00 Lactated Ringer's 1,000 ml @ 30 mls/hr Q24H PRN IV 03/20/17 07:15 03/23/17 07:14 Sodium Chloride 500 ml @ 30 mls/hr [id number] PRN IV 03/20/17 07:15 03/23/17 07:14 (Betadine 5% Antisepsis Kit) 1 applic NANOSYSTEMS ENGINEER PRN EACH NARE 03/20/17 07:15 03/23/17 07:14 (Chlorhexidine 2% Cloth) 3 pack NANOSYSTEMS ENGINEER PRN TOPICAL 03/20/17 07:15 03/23/17 07:14 Miscellaneous Information ALL NURSING DEPARTME... UNSCH PRN .XX 03/20/17 12:19 03/21/17 12:18 ([place] 7.5-325 Mg) 1 tab Q4H PRN PO 03/20/17 15:00 03/21/17 01:32 (Morphine Inj) 4 mg Q4H PRN IV PUSH 03/20/17 15:00 03/21/17 04:18 A/P Problem List: (1) Osteomyelitis of toe of left foot ICD Code: M86.9 - Osteomyelitis of toe of left foot Status: Chronic (2) DM (diabetes mellitus), type 2, uncontrolled ICD Code: E11.65 - DM (diabetes mellitus), type 2, uncontrolled Status: Chronic (3) Hyperglycemia ICD Code: R73.9 - Hyperglycemia Status: Acute Assessment and Plan Sepsis Due to osteomyelitis of left foot. Also with GNR bacteremia. Foot x ray reviewed and suggests osteomyelitis. MRI and WBC scan confirms OM. CTA runoff noted. Vascular surgery consult appreciated. S/p amputation of left leg with placement of wound vac. Infectious disease consult appreciated. - continue Zosyn IV. - further management per vascular surgery. - pain control with a bowel regimen. - Follow blood culture data. Slurred speech Ongoing for the past 2 weeks. He also endorses increasing weakness. CT of the head was unremarkable except for encephalomalacia. - MRI of the brain pending. - Check TSH, B12. - PT/ OT. DM Relatively well-controlled. - Accu checks AC and HS. 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 Tobacco abuse The pt continues to smoke. - Cessation instruction. Anemia Appears chronic. - Follow CBC. DVT prophylaxis: Heparin SQ Problem Qualifiers (1) DM (diabetes mellitus), type 2, uncontrolled: Qualified Codes: E11.42 - Type 2 diabetes mellitus with diabetic polyneuropathy ; E11.65 - Type 2 diabetes mellitus with hyperglycemia Chester Torres DO Mar 21, 2017 09:43
[2017-03-21 09:47] LABS: BICARBONATE 31.2 MEQ/L (21.0-32.0); CALCIUM 8.7 MG/DL (8.5-10.1); CREATININE 0.92 MG/DL (0.60-1.30)
[2017-03-21 09:50] LABS: HEMOGLOBIN 9.9 GM/DL (13.0-17.0); MEAN CELL VOLUME 84.2 FL (80.0-100.0); MEAN CORPUSCULAR HEMOGLOBIN 27.7 PG (27.0-34.0); MEAN CORPUSCULAR HGB CONC 32.9 % (32.0-36.0); MEAN PLATELET VOLUME 6.6 FL (7.0-11.0); PLATELET COUNT 555 TH/MM3 (150-450); RED BLOOD COUNT 3.57 MIL/MM3 (4.50-5.90); WHITE BLOOD COUNT 9.8 TH/MM3 (4.0-11.0)
[2017-03-21] MEDS ORDERED: INSULIN DETEMIR 100 UNITS/ML VIAL SQ SCH (10:00)
--- NOTE | 2017-03-21 11:27 | PD.CAR.PN ---
CVT Progress Note Subjective/Hospital Course: Patient with severe peripheral vascular disease medical noncompliance. Gangrene of the left foot and deformity and incipient gangrene of the right foot I agree with Dr. Hu that there is nothing to do for the left foot and below-knee amputation is the only option I will order CTA with a runoff to see how the right side looks like if there is any way to improve the blood flow there for the right foot will go the same way otherwise very soon Full consult dictated Thanks Charlotte 03/19/17 This gentleman is admitted for florid gangrene and osteomyelitis of the left foot and incipient osteomyelitis and gangrene of the right foot Patient needs urgent left below-knee amputation for otherwise he will eventually from this infection for he'll develop either endocarditis renal failure or both I discussed this with patient in detail and at this point he refuses surgery As far as the right leg is concerned that one is going the same way and in the near future patient will require right below-knee amputation There are no other options available this time with this extensive gangrene of the both sides Patient has aortogram with a runoff does reveals good inflow and then the level of the knee anterior tibial and peroneal arteries are occluded and posterior tibial arteries are the only flow to the feet and while there is some bits and pieces of anterior tibial artery but this is the for most part of occluded Carotid ultrasound is okay and nothing needs to be done about this further Again patient this point to refuses surgery so we'll see which way this goes 03/20/17 Patient today again questions need for surgery and I will not be the one to convince him one way or the other. At this point patient has significant left groin lymphadenopathy and ankle area is starting to get red and swollen. The catheter is also more swollen so I believe the infection and inflammation are spreading proximally I've done everything I can to explained to the patient that right now gangrenous foot is beyond salvage and at this point we are saving his life not his leg. Patient agreed to staged below-knee amputation. In face of swelling and infection today he will undergo guillotine below-knee amputation, placement of wound VAC and then in next few days we will schedule him for actual closure of the amputation stump, for otherwise the amputation stump will of course get infected 03/21/17 Patient doing well at this time Pain controlled by expert help of medicine service Wound VAC draining serosanguineous material Will take to the OR Thursday for completion below-knee amputation Objective: Vital Signs Date Time Temp Pulse Resp B/P (MAP) Pulse Ox O2 Delivery O2 Flow Rate FiO2 03/21/17 08:00 98.0 85 16 107/66 (80) 95 03/21/17 04:00 98.4 82 16 131/72 (91) 94 03/21/17 00:00 98.7 86 16 115/67 (83) 94 03/20/17 20:00 98.3 84 16 117/76 (90) 94 03/20/17 16:00 97.8 87 18 108/69 (82) 94 03/20/17 13:44 98.1 78 18 109/64 (79) 95 03/20/17 12:30 83 12 108/66 (80) 94 Nasal Cannula 2 03/20/17 12:17 97.4 91 14 114/65 (81) 96 Simple Mask 6 Labs: Laboratory Tests Test 03/21/17 05:52 White Blood Count 9.8 TH/MM3 (4.0-11.0) Red Blood Count 3.57 MIL/MM3 (4.50-5.90) Hemoglobin 9.9 GM/DL (13.0-17.0) Hematocrit 30.0 % (39.0-51.0) Mean Corpuscular Volume 84.2 FL (80.0-100.0) Mean Corpuscular Hemoglobin 27.7 PG (27.0-34.0) Mean Corpuscular Hemoglobin Concent 32.9 % (32.0-36.0) Red Cell Distribution Width 15.0 % (11.6-17.2) Platelet Count 555 TH/MM3 (150-450) Mean Platelet Volume 6.6 FL (7.0-11.0) Blood Urea Nitrogen 13 MG/DL (7-18) Creatinine 0.92 MG/DL (0.60-1.30) Random Glucose 183 MG/DL (74-106) Calcium Level 8.7 MG/DL (8.5-10.1) Magnesium Level 2.0 MG/DL (1.5-2.5) Sodium Level 139 MEQ/L (136-145) Potassium Level 4.0 MEQ/L (3.5-5.1) Chloride Level 102 MEQ/L (98-107) Carbon Dioxide Level 31.2 MEQ/L (21.0-32.0) Anion Gap 6 MEQ/L (5-15) Estimat Glomerular Filtration Rate 85 ML/MIN (>89) Result Diagram: 03/21/17 0552 03/21/17 0552 Tierra Bennett MD Mar 21, 2017 11:26
--- NOTE | 2017-03-21 11:46 | RADRPT ---
EXAM DATE/TIME: 03/21/2017 11:19 [facility] COMPARISON: CT BRAIN W/O CONTRAST, March 17, 2017, 12:12. INDICATIONS : CVA. MEDICAL HISTORY : Diabetes mellitus type 2. SURGICAL HISTORY : Umbilical hernia repair. Left foot amputation. ENCOUNTER: Initial ACUITY: 1 day PAIN SCORE: 0/10 LOCATION: cranial TECHNIQUE: Multiplanar, multisequence MRI of the brain was performed without contrast. FINDINGS: CEREBRUM: The ventricles are normal for age. No evidence of midline shift, mass lesion, hemorrhage or acute in farction. No extraaxial fluid collections are seen. The pituitary gland and suprasellar cistern are normal in configuration. WHITE MATTER: Scattered T2 signal abnormalities are seen in the white matter, but greatest in the right periventric ular region. POSTERIOR FOSSA: The cerebellum and brainstem are intact. The 4th ventricle is midline. The cerebellopontine angle is unremarkable. The cerebellar tonsils are normal in position. DIFFUSION IMAGING: No focal areas of restricted diffusion are seen. No evidence of acute infarction. EXTRACRANIAL: The visualized portions of the orbits are unremarkable. Soft tissue sebaceous like cyst in the left o ccipital region again seen. Opacification left maxillary sinus with disease also seen in the right ma xillary sinus. CONCLUSION: 1. Chronic ischemic changes. 2. No acute infarction. 3. Skin lesion again seen within the left occipital region. 4. Sinus disease greatest in the left maxillary sinus. Yonatan Mccarthy MD on March 21, 2017 at 11:40 Board Certified Radiologist. This report was verified electronically.
[2017-03-21 12:00] VITALS: BP 124/73; PULSE 86; RESP 18; TEMP 98.1; O2SAT 94
[2017-03-21] MEDS: ACETAMINOPHEN/HYDROcodone 325 MG/10 MG TAB PO PRN ×2 (12:59→21:45)
[2017-03-21 16:00] VITALS: BP 124/77; PULSE 85; RESP 18; TEMP 98.2; O2SAT 94
--- NOTE | 2017-03-21 19:33 | MP ---
cc: MD ROSE MARY,TIERRA Corrected Copy: 03/23/17 DATE OF SURGERY: 03/20/2017. PREOPERATIVE DIAGNOSIS: Gangrene of both feet and left foot wet gangrene with ascending infection and sepsis. POSTOPERATIVE DIAGNOSIS: Gangrene of both feet and left foot wet gangrene with ascending infection and sepsis. OPERATIVE PROCEDURE PERFORMED: Left below-knee guillotine amputation. SURGEON: Tierra Bennett M.D. ANESTHESIA: General. ESTIMATED BLOOD LOSS: 30 mL. DESCRIPTION OF THE PROCEDURE IN DETAIL: The patient was prepped and draped in the usual fashion. An incision was made circularly around the leg about an inch above the ankle and deepened down to the tibia and fibula which were dissected with a periosteal dilator and then both bones were transected with an oscillating saw. The remainder of the muscle was transected with the amputation knife and the patient's specimen removed. The only bleeding vessel was a poorly perfused posterior tibial artery and this was tied with 2-0 Vicryl stick ties. The area was irrigated with saline and wound VAC applied. Once the wound VAC was on, there was some more bleeding so wound the VAC was removed and a small muscle bleeder was ligated again with 2-0 Vicryl stick tie and then again the wound VAC was applied. The patient tolerated the procedure well. He is scheduled as noted above for a staged amputation and the second stage will be next week when this whole thing kind of cleans up at which point he is going to have a nice closure final below-knee amputation. Tierra HORTON/ZULEIKA /4:52 PM /2:12 PM
[2017-03-21 20:00] VITALS: BP 143/81; PULSE 86; RESP 17; TEMP 99; O2SAT 96
[2017-03-21] MEDS: INSULIN DETEMIR 100 UNITS/ML VIAL SQ SCH (21:00)
[2017-03-22] VITALS: BP 131/76; PULSE 81; RESP 17; TEMP 98.4; O2SAT 94
[2017-03-22 04:00] VITALS: BP 153/86; PULSE 86; RESP 17; TEMP 98.3; O2SAT 94
[2017-03-22] MEDS: PIPERACIL-TAZO 3.375 GM PREMIX 50 ML IV SCH ×4 (05:05→23:54)
[2017-03-22] MEDS: ACETAMINOPHEN/HYDROcodone 325 MG/10 MG TAB PO PRN ×4 (05:05→21:34)
[2017-03-22 08:00] VITALS: BP 140/83; PULSE 83; RESP 20; TEMP 98.2; O2SAT 96
[2017-03-22] MEDS: SODIUM CHLORIDE 0.9% FLUSH 10 ML FLUSH IV FLUSH SCH ×2 (09:02→20:37)
[2017-03-22] MEDS: GABAPENTIN 400 MG CAP PO SCH ×3 (09:02→16:54)
[2017-03-22] MEDS: INSULIN ASPART SUPPLEMENTAL SCALE SQ SCH ×4 (09:03→20:38)
[2017-03-22] MEDS: INSULIN DETEMIR 100 UNITS/ML VIAL SQ SCH ×2 (09:04→20:38)
[2017-03-22] MEDS: HEPARIN SODIUM - SQ 10,000 UNITS/ML VIAL SQ SCH ×2 (09:04→20:37)
--- NOTE | 2017-03-22 10:56 | HHI.PR ---
Subjective Remarks The patient complained of increased pain after working with physical therapy. He said that he heard he might be going to the operating room tomorrow. No other acute complaints. Discussed with nursing. Objective Vitals Vital Signs Date Time Temp Pulse Resp B/P (MAP) Pulse Ox O2 Delivery O2 Flow Rate FiO2 03/22/17 08:00 98.2 83 20 140/83 (102) 96 03/22/17 04:00 98.3 86 17 153/86 (108) 94 03/22/17 00:00 98.4 81 17 131/76 (94) 94 03/21/17 20:00 99.0 86 17 143/81 (101) 96 03/21/17 16:00 98.2 85 18 124/77 (93) 94 03/21/17 15:30 20 03/21/17 12:00 98.1 86 18 124/73 (90) 94 03/21/17 11:18 20 I/O 03/21/17 03/21/17 03/21/17 03/22/17 03/22/17 03/22/17 07:00 15:00 23:00 07:00 15:00 23:00 Intake Total 1095 ml 770 ml 805 ml Output Total 900 ml 800 ml 900 ml Balance 195 ml -30 ml -95 ml Intake Oral 480 ml 720 ml 805 ml IV Total 615 ml 50 ml Output Urine Total 900 ml 800 ml 900 ml # Bowel Movements 0 0 Result Diagram: 03/21/17 0552 03/21/17 0552 Imaging Last Impressions Brain MRI 03/21/17 0000 Signed Impressions: Service Date/Time: Tuesday, March 21, 2017 11:19 - CONCLUSION: 1. Chronic ischemic changes. 2. No acute infarction. 3. Skin lesion again seen within the left occipital region. 4. Sinus disease greatest in the left maxillary sinus. Yonatan Mccarthy MD Tumor Localization 03/18/17 0000 Signed Impressions: Service Date/Time: Saturday, March 18, 2017 13:33 - CONCLUSION: 1. Osteomyelitis of the distal fifth metatarsal of the left foot. 2. Osteomyelitis of the distal second and third metatarsal and proximal phalanges of the second and third digits of the right foot. Yonatan Mccarthy MD Carotid Artery Ultrasound 03/18/17 0000 Signed Impressions: Service Date/Time: Saturday, March 18, 2017 21:43 - CONCLUSION: No acute disease. Christofer Barron MD Aorta w/Runoff CTA 03/18/17 0000 Signed Impressions: Service Date/Time: Saturday, March 18, 2017 22:28 - CONCLUSION: 1. No significant aortic occlusive disease or iliac inflow stenosis. 2. No significant outflow stenosis. 3. Limited evaluation of the runoff vessels due to venous contamination secondary to significant hyperemia. There does appear to be limited runoff bilaterally, worse on the left - with apparent single vessel posterior tibial artery runoff. 4. Findings consistent with significant cellulitis of the distal ankles/feet bilaterally with combination of chronic and acute erosive bony changes most notably in the proximal left fifth metatarsal consistent with osteomyelitis. 5. Bulky bilateral inguinal adenopathy, likely infectious/inflammatory in etiology. 6. Additional ancillary findings, as above. Hunter Barahona MD Foot X-Ray 03/17/17 1613 Signed Impressions: Service Date/Time: Friday, March 17, 2017 16:23 - CONCLUSION: Findings of involvement of the metatarsal phalangeal joint toes #3 and 4 with involvement of the distal shaft of the fourth metatarsal suggesting osteomyelitis in or associated septic arthritis both sides of the joints. Jaxon Lisa MD Head CT 03/17/17 1138 Signed Impressions: Service Date/Time: Friday, March 17, 2017 12:12 - CONCLUSION: 1. No acute intracranial abnormality is identified. There is encephalomalacia likely related to old ischemia in the right frontal periventricular white matter. 2. There is a 3.7 cm subcutaneous mass in the left inferior occipital region. The appearance favors a sebaceous cyst or epidermal inclusion cyst. Suggest correlating with clinical examination to ensure that a more concerning abnormality is not present in this area. 3. Complete opacification of the partially visualized left maxillary sinus. Melquiades Vann MD Objective Remarks GENERAL: This is a well-nourished, well-developed patient, in no apparent distress. SKIN: Left lower extremity with amputation of foot and wound VAC in place. HEAD: Atraumatic. Normocephalic. Seborrhea on scalp. EYES: Pupils equal round and reactive. Extraocular motions intact. ENT: Nose without bleeding, purulent drainage or septal hematoma. Airway patent. NECK: Trachea midline. No JVD or lymphadenopathy. CARDIOVASCULAR: Regular rate and rhythm without murmurs, gallops, or rubs. Diminished pedal pulses. RESPIRATORY: Clear to auscultation. Breath sounds equal bilaterally. No wheezes , rales, or rhonchi. GASTROINTESTINAL: Abdomen soft, non-tender, nondistended. No guarding. MUSCULOSKELETAL: Left lower extremity amputated at the leg with wound VAC in place. NEUROLOGICAL: Awake and alert. Motor and sensory grossly within normal limits. Normal speech. Procedures Amputation of left lower extremity 03/20/17 Medications and IVs Current Medications Medications (Trade) Dose Ordered Sig/Sabino Route Start Time Stop Time Status Last Admin (NS Flush) 2 ml UNSCH PRN IV FLUSH 03/17/17 17:15 (NS Flush) 2 ml BID IV FLUSH 03/17/17 21:00 03/22/17 09:02 (Tylenol) 650 mg Q4H PRN PO 03/17/17 17:15 (Zofran Inj) 4 mg Q6H PRN IVP 03/17/17 17:15 (Heparin Inj) 5,000 units Q12HR SQ 03/17/17 17:15 03/22/17 09:04 (Narcan Inj) 0.4 mg UNSCH PRN IV PUSH 03/17/17 17:15 (Milk Of Magnesia Liq) 30 ml Q12H PRN PO 03/17/17 17:15 (Senokot) 17.2 mg Q12H PRN PO 03/17/17 17:15 (Dulcolax Supp) 10 mg DAILY PRN RECTAL 03/17/17 17:15 (Lactulose Liq) 30 ml DAILY PRN PO 03/17/17 17:15 (D50w (Vial) Inj) 50 ml UNSCH PRN IV PUSH 03/17/17 17:15 (Glucagon Inj) 1 mg UNSCH PRN OTHER 03/17/17 17:15 Piperacillin Sod/ Tazobactam Sod 50 ml @ 100 mls/hr Q6H IV 03/17/17 23:00 03/22/17 05:05 (Neurontin) 800 mg TID PO 03/18/17 09:00 03/22/17 09:02 (NovoLOG SUPPLEMENTAL SCALE) 1 ACHS SLIDING SCALE SQ 03/17/17 21:00 03/22/17 09:03 Lactated Ringer's 1,000 ml @ 30 mls/hr Q24H PRN IV 03/20/17 07:15 03/23/17 07:14 Sodium Chloride 500 ml @ 30 mls/hr [id number] PRN IV 03/20/17 07:15 03/23/17 07:14 (Betadine 5% Antisepsis Kit) 1 applic SOFTWARE EDUCATOR PRN EACH NARE 03/20/17 07:15 03/23/17 07:14 (Chlorhexidine 2% Cloth) 3 pack SOFTWARE EDUCATOR PRN TOPICAL 03/20/17 07:15 03/23/17 07:14 ([place] 7.5-325 Mg) 1 tab Q4H PRN PO 03/20/17 15:00 03/21/17 09:37 (Morphine Inj) 4 mg Q4H PRN IV PUSH 03/20/17 15:00 03/21/17 04:18 (Levemir Inj) 5 units HS SQ 03/21/17 21:00 03/21/17 21:00 (Levemir Inj) 10 units DAILY SQ 03/22/17 09:00 03/22/17 09:04 ([place] 10-325 Mg) 1 tab Q4H PRN PO 03/21/17 10:45 03/22/17 09:10 A/P Problem List: (1) Osteomyelitis of toe of left foot ICD Code: M86.9 - Osteomyelitis of toe of left foot Status: Chronic (2) DM (diabetes mellitus), type 2, uncontrolled ICD Code: E11.65 - DM (diabetes mellitus), type 2, uncontrolled Status: Chronic (3) Hyperglycemia ICD Code: R73.9 - Hyperglycemia Status: Acute Assessment and Plan Sepsis Due to osteomyelitis of left foot. Foot x ray reviewed and suggests osteomyelitis. MRI and WBC scan confirms OM. CTA runoff noted. Vascular surgery consult appreciated. S/p amputation of left leg with placement of wound vac. Infectious disease consult appreciated. One blood culture growing Bacteroides species and the other is growing Veillonella species. - continue Zosyn IV. - further management per vascular surgery. - pain control with a bowel regimen. - Follow blood culture data. - follow up with infectious disease. Slurred speech Ongoing for the past 2 weeks. He also endorses increasing weakness. CT of the head was unremarkable except for encephalomalacia. MRI brain without acute process. - B12 level borderline low, will give B12 IM x 1. - PT/ OT. DM Relatively well-controlled. - Accu checks AC and HS. 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 Tobacco abuse The pt continues to smoke. - Cessation instruction. Anemia Appears chronic. - Follow CBC. DVT prophylaxis: Heparin SQ Problem Qualifiers (1) DM (diabetes mellitus), type 2, uncontrolled: Qualified Codes: E11.42 - Type 2 diabetes mellitus with diabetic polyneuropathy ; E11.65 - Type 2 diabetes mellitus with hyperglycemia Chester Torres DO Mar 22, 2017 10:56
[2017-03-22] MEDS ORDERED: CYANOCOBALAMIN 1000 MCG/ML VIAL IM ONE (11:00)
[2017-03-22] MEDS ORDERED: ACETAMINOPHEN/HYDROcodone 325 MG/5 MG TAB PO ONE (11:30)
[2017-03-22 12:00] VITALS: BP 111/68; PULSE 80; RESP 18; TEMP 98.5; O2SAT 94
--- NOTE | 2017-03-22 13:56 | PD.CAR.PN ---
CVT Progress Note Subjective/Hospital Course: Patient with severe peripheral vascular disease medical noncompliance. Gangrene of the left foot and deformity and incipient gangrene of the right foot I agree with Dr. Hu that there is nothing to do for the left foot and below-knee amputation is the only option I will order CTA with a runoff to see how the right side looks like if there is any way to improve the blood flow there for the right foot will go the same way otherwise very soon Full consult dictated Thanks Charlotte 03/19/17 This gentleman is admitted for florid gangrene and osteomyelitis of the left foot and incipient osteomyelitis and gangrene of the right foot Patient needs urgent left below-knee amputation for otherwise he will eventually from this infection for he'll develop either endocarditis renal failure or both I discussed this with patient in detail and at this point he refuses surgery As far as the right leg is concerned that one is going the same way and in the near future patient will require right below-knee amputation There are no other options available this time with this extensive gangrene of the both sides Patient has aortogram with a runoff does reveals good inflow and then the level of the knee anterior tibial and peroneal arteries are occluded and posterior tibial arteries are the only flow to the feet and while there is some bits and pieces of anterior tibial artery but this is the for most part of occluded Carotid ultrasound is okay and nothing needs to be done about this further Again patient this point to refuses surgery so we'll see which way this goes 03/20/17 Patient today again questions need for surgery and I will not be the one to convince him one way or the other. At this point patient has significant left groin lymphadenopathy and ankle area is starting to get red and swollen. The catheter is also more swollen so I believe the infection and inflammation are spreading proximally I've done everything I can to explained to the patient that right now gangrenous foot is beyond salvage and at this point we are saving his life not his leg. Patient agreed to staged below-knee amputation. In face of swelling and infection today he will undergo guillotine below-knee amputation, placement of wound VAC and then in next few days we will schedule him for actual closure of the amputation stump, for otherwise the amputation stump will of course get infected 03/21/17 Patient doing well at this time Pain controlled by expert help of medicine service Wound VAC draining serosanguineous material Will take to the OR Thursday for completion below-knee amputation 03/22/17 Still fair amount of serosanguineous material draining from the below-knee guillotine amputation, but clearing up Wound VAC in place Will give another day on the wound VAC and then take patient to operating room tomorrow for completion below-knee amputation Objective: Vital Signs Date Time Temp Pulse Resp B/P (MAP) Pulse Ox O2 Delivery O2 Flow Rate FiO2 03/22/17 11:28 18 03/22/17 08:00 98.2 83 20 140/83 (102) 96 03/22/17 04:00 98.3 86 17 153/86 (108) 94 03/22/17 00:00 98.4 81 17 131/76 (94) 94 03/21/17 20:00 99.0 86 17 143/81 (101) 96 03/21/17 16:00 98.2 85 18 124/77 (93) 94 Result Diagram: 03/21/17 0552 03/21/17 0552 Tierra Bennett MD Mar 22, 2017 13:56
[2017-03-22 16:00] VITALS: BP 121/70; PULSE 83; RESP 18; TEMP 97.5; O2SAT 94
[2017-03-22] MEDS: SELENIUM SULFIDE 1% SHAMPOO 207 ML BOTTLE TOPICAL SCH (16:16)
[2017-03-22 20:27] VITALS: BP 141/86; PULSE 78; RESP 18; TEMP 98.5; O2SAT 95
[2017-03-23] VITALS (7 sets, daily range): BP systolic 105–146; BP diastolic 60–80; PULSE 72–86; RESP 17–20; TEMP 98–99.5; O2SAT 93–95
[2017-03-23] MEDS: ACETAMINOPHEN/HYDROcodone 325 MG/10 MG TAB PO PRN ×2 (03:18→17:56)
[2017-03-23] MEDS ORDERED: SODIUM CHLORID 0.9% 500 ML IV PRN (05:00)
[2017-03-23] MEDS ORDERED: LACTATED RINGER'S 1000 ML IV PRN (05:00)
[2017-03-23] MEDS ORDERED: POVIDONE IODINE 5% (ANTISEPSIS KIT) 4 APPLICATIONS EACH NARE PRN (05:00)
[2017-03-23] MEDS ORDERED: METOPROLOL TARTRATE 25 MG TAB PO PRN (05:00)
[2017-03-23] MEDS: PIPERACIL-TAZO 3.375 GM PREMIX 50 ML IV SCH ×3 (05:00→18:00)
[2017-03-23] MEDS ORDERED: CHLORHEXIDINE GLUCONATE 2 % 1 PACK (2 CLOTHS) TOPICAL PRN (05:00)
[2017-03-23] MEDS: INSULIN ASPART SUPPLEMENTAL SCALE SQ SCH ×4 (08:00→22:31)
[2017-03-23] MEDS: HEPARIN SODIUM - SQ 10,000 UNITS/ML VIAL SQ SCH ×2 (08:06→22:30)
[2017-03-23] MEDS: GABAPENTIN 400 MG CAP PO SCH ×3 (08:06→17:56)
[2017-03-23] MEDS: INSULIN DETEMIR 100 UNITS/ML VIAL SQ SCH ×2 (08:07→22:30)
[2017-03-23] MEDS: SODIUM CHLORIDE 0.9% FLUSH 10 ML FLUSH IV FLUSH SCH ×2 (08:13→22:30)
[2017-03-23 08:53] LABS: INTERNATIONAL NORMALIZED RATIO 0.9 RATIO; PROTHROMBIN TIME - PATIENT 9.5 SEC (9.8-11.6)
[2017-03-23 09:18] LABS: CREATININE 0.88 MG/DL (0.60-1.30)
[2017-03-23] MEDS: SELENIUM SULFIDE 1% SHAMPOO 207 ML BOTTLE TOPICAL SCH (09:55)
--- NOTE | 2017-03-23 14:09 | HHI.PR ---
Subjective Remarks The patient was irritated that he hasn't gone for a procedure yet. He said if he was not going to go for the procedure he would like to be fed. No other acute complaints. Discussed with nursing. Objective Vitals Vital Signs Date Time Temp Pulse Resp B/P (MAP) Pulse Ox O2 Delivery O2 Flow Rate FiO2 03/23/17 12:00 98.6 76 20 114/71 (85) 94 03/23/17 08:00 98.0 75 20 128/73 (91) 94 03/23/17 07:46 Room Air 03/23/17 04:00 98.8 86 20 146/80 (102) 95 03/23/17 00:00 99.5 82 20 109/60 (76) 95 03/22/17 20:27 98.5 78 18 141/86 (104) 95 03/22/17 20:00 Room Air 03/22/17 17:31 20 03/22/17 16:00 97.5 83 18 121/70 (87) 94 I/O 03/22/17 03/22/17 03/22/17 03/23/17 03/23/17 03/23/17 07:00 15:00 23:00 07:00 15:00 23:00 Intake Total 805 ml 50 ml 50 ml Output Total 900 ml 900 ml Balance -95 ml 50 ml 50 ml -900 ml Intake Oral 805 ml IV Total 50 ml 50 ml Output Urine Total 900 ml 900 ml # Voids 2 # Bowel Movements 0 2 Result Diagram: 03/21/17 0552 03/23/17 0741 Imaging Last Impressions Brain MRI 03/21/17 0000 Signed Impressions: Service Date/Time: Tuesday, March 21, 2017 11:19 - CONCLUSION: 1. Chronic ischemic changes. 2. No acute infarction. 3. Skin lesion again seen within the left occipital region. 4. Sinus disease greatest in the left maxillary sinus. Yonatan Mccarthy MD Tumor Localization 03/18/17 0000 Signed Impressions: Service Date/Time: Saturday, March 18, 2017 13:33 - CONCLUSION: 1. Osteomyelitis of the distal fifth metatarsal of the left foot. 2. Osteomyelitis of the distal second and third metatarsal and proximal phalanges of the second and third digits of the right foot. Yonatan Mccarthy MD Carotid Artery Ultrasound 03/18/17 0000 Signed Impressions: Service Date/Time: Saturday, March 18, 2017 21:43 - CONCLUSION: No acute disease. Christofer Barron MD Aorta w/Runoff CTA 03/18/17 0000 Signed Impressions: Service Date/Time: Saturday, March 18, 2017 22:28 - CONCLUSION: 1. No significant aortic occlusive disease or iliac inflow stenosis. 2. No significant outflow stenosis. 3. Limited evaluation of the runoff vessels due to venous contamination secondary to significant hyperemia. There does appear to be limited runoff bilaterally, worse on the left - with apparent single vessel posterior tibial artery runoff. 4. Findings consistent with significant cellulitis of the distal ankles/feet bilaterally with combination of chronic and acute erosive bony changes most notably in the proximal left fifth metatarsal consistent with osteomyelitis. 5. Bulky bilateral inguinal adenopathy, likely infectious/inflammatory in etiology. 6. Additional ancillary findings, as above. Hunter Barahona MD Foot X-Ray 03/17/17 1613 Signed Impressions: Service Date/Time: Friday, March 17, 2017 16:23 - CONCLUSION: Findings of involvement of the metatarsal phalangeal joint toes #3 and 4 with involvement of the distal shaft of the fourth metatarsal suggesting osteomyelitis in or associated septic arthritis both sides of the joints. Jaxon Lisa MD Head CT 03/17/17 1138 Signed Impressions: Service Date/Time: Friday, March 17, 2017 12:12 - CONCLUSION: 1. No acute intracranial abnormality is identified. There is encephalomalacia likely related to old ischemia in the right frontal periventricular white matter. 2. There is a 3.7 cm subcutaneous mass in the left inferior occipital region. The appearance favors a sebaceous cyst or epidermal inclusion cyst. Suggest correlating with clinical examination to ensure that a more concerning abnormality is not present in this area. 3. Complete opacification of the partially visualized left maxillary sinus. Melquiades Vann MD Objective Remarks GENERAL: This is a well-nourished, well-developed patient, in no apparent distress. SKIN: Left lower extremity with amputation of foot and wound VAC in place. HEAD: Atraumatic. Normocephalic. Seborrhea on scalp. EYES: Pupils equal round and reactive. Extraocular motions intact. ENT: Nose without bleeding, purulent drainage or septal hematoma. Airway patent. NECK: Trachea midline. No JVD or lymphadenopathy. CARDIOVASCULAR: Regular rate and rhythm without murmurs, gallops, or rubs. Diminished pedal pulses. RESPIRATORY: Clear to auscultation. Breath sounds equal bilaterally. No wheezes , rales, or rhonchi. GASTROINTESTINAL: Abdomen soft, non-tender, nondistended. No guarding. MUSCULOSKELETAL: Left lower extremity amputated at the leg with wound VAC in place. NEUROLOGICAL: Awake and alert. Motor and sensory grossly within normal limits. Normal speech. Procedures Amputation of left lower extremity 03/20/17 Medications and IVs Current Medications Medications (Trade) Dose Ordered Sig/Sabino Route Start Time Stop Time Status Last Admin (NS Flush) 2 ml UNSCH PRN IV FLUSH 03/17/17 17:15 (NS Flush) 2 ml BID IV FLUSH 03/17/17 21:00 03/23/17 08:13 (Tylenol) 650 mg Q4H PRN PO 03/17/17 17:15 (Zofran Inj) 4 mg Q6H PRN IVP 03/17/17 17:15 (Heparin Inj) 5,000 units Q12HR SQ 03/17/17 17:15 03/23/17 08:06 (Narcan Inj) 0.4 mg UNSCH PRN IV PUSH 03/17/17 17:15 (Milk Of Magnesia Liq) 30 ml Q12H PRN PO 03/17/17 17:15 (Senokot) 17.2 mg Q12H PRN PO 03/17/17 17:15 (Dulcolax Supp) 10 mg DAILY PRN RECTAL 03/17/17 17:15 (Lactulose Liq) 30 ml DAILY PRN PO 03/17/17 17:15 (D50w (Vial) Inj) 50 ml UNSCH PRN IV PUSH 03/17/17 17:15 (Glucagon Inj) 1 mg UNSCH PRN OTHER 03/17/17 17:15 Piperacillin Sod/ Tazobactam Sod 50 ml @ 100 mls/hr Q6H IV 03/17/17 23:00 03/23/17 10:00 (Neurontin) 800 mg TID PO 03/18/17 09:00 03/23/17 08:06 (NovoLOG SUPPLEMENTAL SCALE) 1 ACHS SLIDING SCALE SQ 03/17/17 21:00 2/4/18 20:38 (Powers 7.5-325 Mg) 1 tab Q4H PRN PO 03/20/17 15:00 03/21/17 09:37 (Morphine Inj) 4 mg Q4H PRN IV PUSH 03/20/17 15:00 03/21/17 04:18 (Levemir Inj) 5 units HS SQ 03/21/17 21:00 03/22/17 20:38 (Levemir Inj) 10 units DAILY SQ 03/22/17 09:00 03/23/17 08:07 (Powers 10-325 Mg) 1 tab Q4H PRN PO 03/21/17 10:45 03/23/17 03:18 (Selsun 1% Shampoo) 1 applic DAILY TOPICAL 03/22/17 11:00 03/23/17 09:55 Lactated Ringer's 1,000 ml @ 30 mls/hr Q24H PRN IV 03/23/17 05:00 03/26/17 04:59 Sodium Chloride 500 ml @ 30 mls/hr [id number] PRN IV 03/23/17 05:00 03/26/17 04:59 (Lopressor) 25 mg VEGETABLE WORKER PRN PO 03/23/17 05:00 03/26/17 04:59 (Betadine 5% Antisepsis Kit) 1 applic VEGETABLE WORKER PRN EACH NARE 03/23/17 05:00 03/26/17 04:59 (Chlorhexidine 2% Cloth) 3 pack VEGETABLE WORKER PRN TOPICAL 03/23/17 05:00 03/26/17 04:59 A/P Problem List: (1) Osteomyelitis of toe of left foot ICD Code: M86.9 - Osteomyelitis of toe of left foot Status: Chronic (2) DM (diabetes mellitus), type 2, uncontrolled ICD Code: E11.65 - DM (diabetes mellitus), type 2, uncontrolled Status: Chronic (3) Hyperglycemia ICD Code: R73.9 - Hyperglycemia Status: Acute Assessment and Plan Sepsis Due to osteomyelitis of left foot. Foot x ray reviewed and suggests osteomyelitis. MRI and WBC scan confirms OM. CTA runoff noted. Vascular surgery consult appreciated. S/p amputation of left leg with placement of wound vac. Infectious disease consult appreciated. One blood culture growing Bacteroides species and the other is growing Veillonella species. - continue Zosyn IV. - further management per vascular surgery. Completion of BKA tentatively scheduled for 03/23. - pain control with a bowel regimen. - Follow blood culture data. - follow up with infectious disease. Slurred speech Ongoing for the past 2 weeks. He also endorses increasing weakness. CT of the head was unremarkable except for encephalomalacia. MRI brain without acute process. - B12 level borderline low, will give B12 IM x 1. - PT/ OT. DM Relatively well-controlled. - Accu checks AC and HS. 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 Tobacco abuse The pt continues to smoke. - Cessation instruction. Anemia Appears chronic. - Follow CBC. Thrombocytopenia Likely reactive. - Follow CBC. DVT prophylaxis: Heparin SQ Problem Qualifiers (1) DM (diabetes mellitus), type 2, uncontrolled: Qualified Codes: E11.42 - Type 2 diabetes mellitus with diabetic polyneuropathy ; E11.65 - Type 2 diabetes mellitus with hyperglycemia Chester Torres DO Mar 23, 2017 14:09
--- NOTE | 2017-03-23 15:30 | HHI.IDPN ---
Note Infectious Disease Note Patient says he feels okay. Afebrile. Blood culture has bacteroides in one set and Veilonella in another from . Had partial Left BKA, due to be continued in stages. 56-year-old white male who has diabetes mellitus. The patient presented to the emergency department on 03/17 with generalized weakness. The patient has diabetes mellitus. He is also a smoker. He was evaluated in the emergency department for worsening wound of the left foot and inability to ambulate. Foot x-ray revealed changes suggesting osteomyelitis of the metatarsophalangeal joint of toes three and four on the left and also the distal shaft of the fourth metatarsal. He had subsequent tumor localization study that showed osteomyelitis involving the distal fifth metatarsal of the left foot and osteomyelitis of the distal second and third metatarsals and proximal phalanges of the second and third digits of the right foot. PAST MEDICAL HISTORY: 1. Diabetes mellitus. 2. Diabetic neuropathy. 3. History of left great toe amputation. ALLERGIES: CODEINE. ANTIBIOTICS: Piperacillin / tazobactam. OBJECTIVE: Vital Signs Date Time Temp Pulse Resp B/P (MAP) Pulse Ox O2 Delivery O2 Flow Rate FiO2 03/23/17 12:00 98.6 76 20 114/71 (85) 94 03/23/17 08:00 98.0 75 20 128/73 (91) 94 03/23/17 07:46 Room Air 03/23/17 04:00 98.8 86 20 146/80 (102) 95 03/23/17 00:00 99.5 82 20 109/60 (76) 95 03/22/17 20:27 98.5 78 18 141/86 (104) 95 03/22/17 20:00 Room Air 03/22/17 17:31 20 03/22/17 16:00 97.5 83 18 121/70 (87) 94 Laboratory Tests Test 03/23/17 07:41 Creatinine 0.88 MG/DL Estimat Glomerular Filtration Rate 90 ML/MIN IMAGING: Brain MRI 03/21/17 0000 Signed Impressions: Service Date/Time: Tuesday, March 21, 2017 11:19 - CONCLUSION: 1. Chronic ischemic changes. 2. No acute infarction. 3. Skin lesion again seen within the left occipital region. 4. Sinus disease greatest in the left maxillary sinus. Yonatan Mccarthy MD Tumor Localization 03/18/17 0000 Signed Impressions: Service Date/Time: Saturday, March 18, 2017 13:33 - CONCLUSION: 1. Osteomyelitis of the distal fifth metatarsal of the left foot. 2. Osteomyelitis of the distal second and third metatarsal and proximal phalanges of the second and third digits of the right foot. Yonatan Mccarthy MD Carotid Artery Ultrasound 03/18/17 0000 Signed Impressions: Service Date/Time: Saturday, March 18, 2017 21:43 - CONCLUSION: No acute disease. Christofer Barron MD Aorta w/Runoff CTA 03/18/17 0000 Signed Impressions: Service Date/Time: Saturday, March 18, 2017 22:28 - CONCLUSION: 1. No significant aortic occlusive disease or iliac inflow stenosis. 2. No significant outflow stenosis. 3. Limited evaluation of the runoff vessels due to venous contamination secondary to significant hyperemia. There does appear to be limited runoff bilaterally, worse on the left - with apparent single vessel posterior tibial artery runoff. 4. Findings consistent with significant cellulitis of the distal ankles/feet bilaterally with combination of chronic and acute erosive bony changes most notably in the proximal left fifth metatarsal consistent with osteomyelitis. 5. Bulky bilateral inguinal adenopathy, likely infectious/inflammatory in etiology. 6. Additional ancillary findings, as above. Hunter Barahona MD Foot X-Ray 03/17/17 1613 Signed Impressions: Service Date/Time: Friday, March 17, 2017 16:23 - CONCLUSION: Findings of involvement of the metatarsal phalangeal joint toes #3 and 4 with involvement of the distal shaft of the fourth metatarsal suggesting osteomyelitis in or associated septic arthritis both sides of the joints. Jaxon Lisa MD Head CT 03/17/17 1138 Signed Impressions: Service Date/Time: Friday, March 17, 2017 12:12 - CONCLUSION: 1. No acute intracranial abnormality is identified. There is encephalomalacia likely related to old ischemia in the right frontal periventricular white matter. 2. There is a 3.7 cm subcutaneous mass in the left inferior occipital region. The appearance favors a sebaceous cyst or epidermal inclusion cyst. Suggest correlating with clinical examination to ensure that a more concerning abnormality is not present in this area. 3. Complete opacification of the partially visualized left maxillary sinus. Melquiades Vann MD PHYSICAL EXAMINATION: GENERAL: The patient is a well-developed male who is in no acute distress. He is awake and alert and oriented. HEAD, EYES, EARS, NOSE, THROAT: Pupils reactive to light. No icterus. Oropharynx with moist mucosa. LUNGS: Clear to auscultation. HEART: Regular S1 and S2 without murmurs, rubs or gallops. ABDOMEN: Bowel sounds present, soft, nontender. EXTREMITIES: The left leg is post [id number] amputation. A vacuum device is in place and has serosanguineous drainage. The left foot has chronic tree bark changes of the skin at the base of the toes. The right great toe is post partial amputation. SKIN: No rash. NEUROLOGIC: No gross focal findings. PSYCHIATRIC: Calm and cooperative. IMPRESSION: 1. Bacteremia - Bacteroides and Vielonella. Possibly emanating from the foot. Also possible contamination. had gangrenous and foul-smelling changes at the left foot prior to the surgery and hence likely source. 2. Osteomyelitis of the right foot. distal second and third metatarsals and proximal phalanges of the second and third digits of the right foot. RECOMMENDATIONS: 1. Continue piperacillin / tazobactam. 2. Repeat the blood cultures. 3. Need to get bone biopsy of the right foot to determine antibiotic choice since he will need a course of antibiotic for osteo. Mook Jha MD Mar 23, 2017 15:30
--- NOTE | 2017-03-23 20:33 | HHI.PR ---
Subjective Remarks NOT SEEN Objective Vitals Vital Signs Date Time Temp Pulse Resp B/P (MAP) Pulse Ox O2 Delivery O2 Flow Rate FiO2 03/23/17 16:00 98.8 73 20 105/64 (78) 93 03/23/17 12:00 98.6 76 20 114/71 (85) 94 03/23/17 08:00 98.0 75 20 128/73 (91) 94 03/23/17 07:46 Room Air 03/23/17 04:00 98.8 86 20 146/80 (102) 95 03/23/17 00:00 99.5 82 20 109/60 (76) 95 I/O 03/22/17 03/22/17 03/22/17 03/23/17 03/23/17 03/23/17 07:00 15:00 23:00 07:00 15:00 23:00 Intake Total 805 ml 50 ml 50 ml 50 ml Output Total 900 ml 900 ml Balance -95 ml 50 ml 50 ml -900 ml 50 ml Intake Oral 805 ml IV Total 50 ml 50 ml 50 ml Output Urine Total 900 ml 900 ml # Voids 2 # Bowel Movements 0 2 Result Diagram: 03/21/17 0552 03/23/17 0741 Imaging Last Impressions Brain MRI 03/21/17 0000 Signed Impressions: Service Date/Time: Tuesday, March 21, 2017 11:19 - CONCLUSION: 1. Chronic ischemic changes. 2. No acute infarction. 3. Skin lesion again seen within the left occipital region. 4. Sinus disease greatest in the left maxillary sinus. Yonatan Mccarthy MD Tumor Localization 03/18/17 0000 Signed Impressions: Service Date/Time: Saturday, March 18, 2017 13:33 - CONCLUSION: 1. Osteomyelitis of the distal fifth metatarsal of the left foot. 2. Osteomyelitis of the distal second and third metatarsal and proximal phalanges of the second and third digits of the right foot. Yonatan Mccarthy MD Carotid Artery Ultrasound 03/18/17 0000 Signed Impressions: Service Date/Time: Saturday, March 18, 2017 21:43 - CONCLUSION: No acute disease. Christofer Barron MD Aorta w/Runoff CTA 03/18/17 0000 Signed Impressions: Service Date/Time: Saturday, March 18, 2017 22:28 - CONCLUSION: 1. No significant aortic occlusive disease or iliac inflow stenosis. 2. No significant outflow stenosis. 3. Limited evaluation of the runoff vessels due to venous contamination secondary to significant hyperemia. There does appear to be limited runoff bilaterally, worse on the left - with apparent single vessel posterior tibial artery runoff. 4. Findings consistent with significant cellulitis of the distal ankles/feet bilaterally with combination of chronic and acute erosive bony changes most notably in the proximal left fifth metatarsal consistent with osteomyelitis. 5. Bulky bilateral inguinal adenopathy, likely infectious/inflammatory in etiology. 6. Additional ancillary findings, as above. Hunter Barahona MD Foot X-Ray 03/17/17 1613 Signed Impressions: Service Date/Time: Friday, March 17, 2017 16:23 - CONCLUSION: Findings of involvement of the metatarsal phalangeal joint toes #3 and 4 with involvement of the distal shaft of the fourth metatarsal suggesting osteomyelitis in or associated septic arthritis both sides of the joints. Jaxon Lisa MD Head CT 03/17/17 1138 Signed Impressions: Service Date/Time: Friday, March 17, 2017 12:12 - CONCLUSION: 1. No acute intracranial abnormality is identified. There is encephalomalacia likely related to old ischemia in the right frontal periventricular white matter. 2. There is a 3.7 cm subcutaneous mass in the left inferior occipital region. The appearance favors a sebaceous cyst or epidermal inclusion cyst. Suggest correlating with clinical examination to ensure that a more concerning abnormality is not present in this area. 3. Complete opacification of the partially visualized left maxillary sinus. Melquiades Vann MD Objective Remarks GENERAL: This is a well-nourished, well-developed patient, in no apparent distress. SKIN: Left lower extremity with amputation of foot and wound VAC in place. HEAD: Atraumatic. Normocephalic. Seborrhea on scalp. EYES: Pupils equal round and reactive. Extraocular motions intact. ENT: Nose without bleeding, purulent drainage or septal hematoma. Airway patent. NECK: Trachea midline. No JVD or lymphadenopathy. CARDIOVASCULAR: Regular rate and rhythm without murmurs, gallops, or rubs. Diminished pedal pulses. RESPIRATORY: Clear to auscultation. Breath sounds equal bilaterally. No wheezes , rales, or rhonchi. GASTROINTESTINAL: Abdomen soft, non-tender, nondistended. No guarding. MUSCULOSKELETAL: Left lower extremity amputated at the leg with wound VAC in place. NEUROLOGICAL: Awake and alert. Motor and sensory grossly within normal limits. Normal speech. Procedures Amputation of left lower extremity 03/20/17 A/P Problem List: (1) Osteomyelitis of toe of left foot ICD Code: M86.9 - Osteomyelitis of toe of left foot Status: Chronic (2) DM (diabetes mellitus), type 2, uncontrolled ICD Code: E11.65 - DM (diabetes mellitus), type 2, uncontrolled Status: Chronic (3) Hyperglycemia ICD Code: R73.9 - Hyperglycemia Status: Acute Assessment and Plan Sepsis Due to osteomyelitis of left foot. Foot x ray reviewed and suggests osteomyelitis. MRI and WBC scan confirms OM. CTA runoff noted. Vascular surgery consult appreciated. S/p amputation of left leg with placement of wound vac. Infectious disease consult appreciated. One blood culture growing Bacteroides species and the other is growing Veillonella species. - continue Zosyn IV. - further management per vascular surgery. Completion of BKA tentatively scheduled for 03/23. - pain control with a bowel regimen. - Follow blood culture data. - follow up with infectious disease. Slurred speech Ongoing for the past 2 weeks. He also endorses increasing weakness. CT of the head was unremarkable except for encephalomalacia. MRI brain without acute process. - B12 level borderline low, will give B12 IM x 1. - PT/ OT. DM Relatively well-controlled. - Accu checks AC and HS. 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 Tobacco abuse The pt continues to smoke. - Cessation instruction. Anemia Appears chronic. - Follow CBC. Thrombocytopenia Likely reactive. - Follow CBC. DVT prophylaxis: Heparin SQ Problem Qualifiers (1) DM (diabetes mellitus), type 2, uncontrolled: Qualified Codes: E11.42 - Type 2 diabetes mellitus with diabetic polyneuropathy ; E11.65 - Type 2 diabetes mellitus with hyperglycemia Wisam Lopez MD Mar 23, 2017 20:33
[2017-03-24 03:48] VITALS: BP 132/75; PULSE 80; RESP 18; TEMP 98.3; O2SAT 94
[2017-03-24] MEDS: PIPERACIL-TAZO 3.375 GM PREMIX 50 ML IV SCH ×4 (05:59→16:02)
[2017-03-24 07:24] LABS: HEMATOCRIT 33.2 % (39.0-51.0); HEMOGLOBIN 10.5 GM/DL (13.0-17.0); MEAN CELL VOLUME 83.8 FL (80.0-100.0); MEAN CORPUSCULAR HEMOGLOBIN 26.6 PG (27.0-34.0); MEAN CORPUSCULAR HGB CONC 31.7 % (32.0-36.0); MEAN PLATELET VOLUME 6.4 FL (7.0-11.0); PLATELET COUNT 642 TH/MM3 (150-450); RED BLOOD COUNT 3.96 MIL/MM3 (4.50-5.90); RED CELL DISTRIBUTION WIDTH 15.2 % (11.6-17.2); WHITE BLOOD COUNT 11.1 TH/MM3 (4.0-11.0)
[2017-03-24 07:48] LABS: BICARBONATE 29.6 MEQ/L (21.0-32.0); CALCIUM 9.1 MG/DL (8.5-10.1); CREATININE 0.93 MG/DL (0.60-1.30); MAGNESIUM 2.1 MG/DL (1.5-2.5)
[2017-03-24 08:00] VITALS: BP 123/79; PULSE 82; RESP 20; TEMP 98.5; O2SAT 96
[2017-03-24] MEDS: INSULIN ASPART SUPPLEMENTAL SCALE SQ SCH ×4 (08:00→22:17)
[2017-03-24] MEDS: ACETAMINOPHEN/HYDROcodone 325 MG/10 MG TAB PO PRN ×3 (08:24→22:16)
[2017-03-24] MEDS: HEPARIN SODIUM - SQ 10,000 UNITS/ML VIAL SQ SCH ×2 (08:25→21:00)
[2017-03-24] MEDS: GABAPENTIN 400 MG CAP PO SCH ×3 (08:25→17:09)
[2017-03-24] MEDS: SODIUM CHLORIDE 0.9% FLUSH 10 ML FLUSH IV FLUSH SCH ×2 (08:25→22:18)
[2017-03-24] MEDS: INSULIN DETEMIR 100 UNITS/ML VIAL SQ SCH ×2 (08:31→22:17)
[2017-03-24] MEDS: SELENIUM SULFIDE 1% SHAMPOO 207 ML BOTTLE TOPICAL SCH ×2 (08:32→09:00)
--- NOTE | 2017-03-24 10:10 | HHI.PR ---
Subjective Remarks F/U [facility]. Denies pain. Currently nothing by mouth. Discussed with vascular surgery will do bone biopsy of the right foot. Objective Vitals Vital Signs Date Time Temp Pulse Resp B/P (MAP) Pulse Ox O2 Delivery O2 Flow Rate FiO2 03/24/17 08:39 Room Air 03/24/17 08:00 98.5 82 20 123/79 (94) 96 03/24/17 03:48 98.3 80 18 132/75 (94) 94 03/23/17 23:28 98.4 72 18 106/64 (78) 94 03/23/17 20:00 Room Air 03/23/17 19:56 99.3 81 17 121/74 (90) 94 03/23/17 16:00 98.8 73 20 105/64 (78) 93 03/23/17 12:00 98.6 76 20 114/71 (85) 94 I/O 03/23/17 03/23/17 03/23/17 03/24/17 03/24/17 03/24/17 07:00 15:00 23:00 07:00 15:00 23:00 Intake Total 50 ml 340 ml Output Total 900 ml 150 ml Balance -900 ml 50 ml 190 ml Intake Oral 240 ml IV Total 50 ml 100 ml Output Urine Total 900 ml 150 ml # Voids 2 # Bowel Movements 2 0 Result Diagram: 03/24/17 0549 03/24/17 0549 Imaging Last Impressions Brain MRI 03/21/17 0000 Signed Impressions: Service Date/Time: Tuesday, March 21, 2017 11:19 - CONCLUSION: 1. Chronic ischemic changes. 2. No acute infarction. 3. Skin lesion again seen within the left occipital region. 4. Sinus disease greatest in the left maxillary sinus. Yonatan Mccarthy MD Tumor Localization 03/18/17 0000 Signed Impressions: Service Date/Time: Saturday, March 18, 2017 13:33 - CONCLUSION: 1. Osteomyelitis of the distal fifth metatarsal of the left foot. 2. Osteomyelitis of the distal second and third metatarsal and proximal phalanges of the second and third digits of the right foot. Yonatan Mccarthy MD Carotid Artery Ultrasound 03/18/17 0000 Signed Impressions: Service Date/Time: Saturday, March 18, 2017 21:43 - CONCLUSION: No acute disease. Christofer Barron MD Aorta w/Runoff CTA 03/18/17 0000 Signed Impressions: Service Date/Time: Saturday, March 18, 2017 22:28 - CONCLUSION: 1. No significant aortic occlusive disease or iliac inflow stenosis. 2. No significant outflow stenosis. 3. Limited evaluation of the runoff vessels due to venous contamination secondary to significant hyperemia. There does appear to be limited runoff bilaterally, worse on the left - with apparent single vessel posterior tibial artery runoff. 4. Findings consistent with significant cellulitis of the distal ankles/feet bilaterally with combination of chronic and acute erosive bony changes most notably in the proximal left fifth metatarsal consistent with osteomyelitis. 5. Bulky bilateral inguinal adenopathy, likely infectious/inflammatory in etiology. 6. Additional ancillary findings, as above. Hunter Barahona MD Foot X-Ray 03/17/17 1613 Signed Impressions: Service Date/Time: Friday, March 17, 2017 16:23 - CONCLUSION: Findings of involvement of the metatarsal phalangeal joint toes #3 and 4 with involvement of the distal shaft of the fourth metatarsal suggesting osteomyelitis in or associated septic arthritis both sides of the joints. Jaxon Lisa MD Head CT 03/17/17 1138 Signed Impressions: Service Date/Time: Friday, March 17, 2017 12:12 - CONCLUSION: 1. No acute intracranial abnormality is identified. There is encephalomalacia likely related to old ischemia in the right frontal periventricular white matter. 2. There is a 3.7 cm subcutaneous mass in the left inferior occipital region. The appearance favors a sebaceous cyst or epidermal inclusion cyst. Suggest correlating with clinical examination to ensure that a more concerning abnormality is not present in this area. 3. Complete opacification of the partially visualized left maxillary sinus. Melquiades Vann MD Objective Remarks GENERAL: This is a well-nourished, well-developed patient, in no apparent distress. SKIN: Left lower extremity with amputation of foot and wound VAC in place. CARDIOVASCULAR: Regular rate and rhythm without murmurs, gallops, or rubs. Diminished pedal pulses. RESPIRATORY: Clear to auscultation. Breath sounds equal bilaterally. No wheezes , rales, or rhonchi. GASTROINTESTINAL: Abdomen soft, non-tender, nondistended. No guarding. MUSCULOSKELETAL: Left lower extremity amputated at the leg with wound VAC in place. NEUROLOGICAL: Awake and alert. Motor and sensory grossly within normal limits. Normal speech. Procedures Amputation of left lower extremity 03/20/17 A/P Problem List: (1) Osteomyelitis of toe of left foot ICD Code: M86.9 - Osteomyelitis of toe of left foot Status: Chronic (2) DM (diabetes mellitus), type 2, uncontrolled ICD Code: E11.65 - DM (diabetes mellitus), type 2, uncontrolled Status: Chronic (3) Hyperglycemia ICD Code: R73.9 - Hyperglycemia Status: Acute Assessment and Plan Sepsis Due to osteomyelitis b/l feet. Foot x ray reviewed and suggests osteomyelitis. MRI and WBC scan confirms OM. CTA runoff noted. Vascular surgery consult appreciated. S/p amputation of left leg with placement of wound vac. Infectious disease consult appreciated. One blood culture growing Bacteroides species and the other is growing Veillonella species. - continue Zosyn IV. - Completion of BKA tentatively scheduled today. Bone biopsy of the right foot will be so performed - pain control with a bowel regimen. - Follow blood culture data negative to date 03/23/99 618. - follow up with infectious disease. - Mild leukocytosis will monitor Slurred speech Ongoing for the past 2 weeks. He also endorses increasing weakness. CT of the head was unremarkable except for encephalomalacia. MRI brain without acute process. - B12 level borderline low, will give B12 IM x 1. - PT/ OT. DM A1c 18.3 - Accu checks AC and HS. 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 Tobacco abuse The pt continues to smoke. - Cessation instruction. Anemia Appears chronic. - Follow CBC. Thrombocytopenia Likely reactive. - Follow CBC. DVT prophylaxis: Heparin SQ Discharge Planning Discharge planning will be a challenge patient has no payor source for rehabilitation or home care. He is homeless. Case management following Problem Qualifiers (1) DM (diabetes mellitus), type 2, uncontrolled: Qualified Codes: E11.42 - Type 2 diabetes mellitus with diabetic polyneuropathy ; E11.65 - Type 2 diabetes mellitus with hyperglycemia Wisam Lopez MD Mar 24, 2017 10:10
[2017-03-24 12:00] VITALS: BP 123/79; PULSE 82; RESP 20; TEMP 98.5; O2SAT 96
[2017-03-24] MEDS ORDERED: PHENYLEPHRINE HCL 10 MG/ML VIAL IV ONE (12:00)
[2017-03-24] MEDS ORDERED: NEOSTIGMINE 5 MG/5 ML SYRINGE IV PUSH ONE (12:00)
[2017-03-24] MEDS ORDERED: LIDOCAINE HCL 1% PF 5 ML SYRINGE OTHER ONE (12:00)
[2017-03-24] MEDS ORDERED: PHENYLEPH/NS 1000 MCG/10 ML SYR IV ONE (12:00)
[2017-03-24] MEDS ORDERED: ePHEDrine/NS 25 MG/5 ML SYRINGE IV ONE (12:00)
[2017-03-24] MEDS ORDERED: ROCURONIUM INJ 50 MG/5 ML SYRINGE IV PUSH ONE (12:00)
[2017-03-24] MEDS ORDERED: PROPOFOL 200 MG/20 ML AMP IV ONE (12:00)
[2017-03-24] MEDS ORDERED: ONDANSETRON HCL 4 MG/2 ML VIAL IV ONE (12:00)
[2017-03-24] MEDS ORDERED: METOPROLOL TARTRATE 5 MG/5 ML VIAL IV ONE (12:00)
[2017-03-24] MEDS ORDERED: GLYCOPYRROLATE 1 MG/5 ML SYRINGE IV PUSH ONE (12:00)
[2017-03-24] MEDS ORDERED: HYDROmorphone HCL PF 2 MG/ML VIAL ONE (13:04)
[2017-03-24] MEDS ORDERED: DO NOT ADM ANY ANTICOAGULANT DRUGS PRN (13:08)
[2017-03-24] MEDS ORDERED: *morphine SULFATE 10 MG/ML PERIprocedure ONLY ONE (13:23)
[2017-03-24 16:00] VITALS: BP 118/65; PULSE 92; RESP 20; TEMP 97.4; O2SAT 91
[2017-03-24 20:00] VITALS: BP 103/77; PULSE 86; RESP 18; TEMP 97.9; O2SAT 96
--- NOTE | 2017-03-24 22:30 | MP ---
cc: TIERRA BAZZI MD DATE OF SURGERY: 03/24/2017 PREOPERATIVE DIAGNOSIS: Sepsis, gangrene of the left leg, status post guillotine amputation of the left leg. POSTOPERATIVE DIAGNOSIS: Sepsis, gangrene of the left leg, status post guillotine amputation of the left leg. PROCEDURE: Staged left BK amputation with closure. SURGEON: Dr. Bazzi ANESTHESIA: General. ESTIMATED BLOOD LOSS: 100 cc. DESCRIPTION OF PROCEDURE: The patient was prepped and draped in the usual fashion. The outline of the future incision was marked with indentation with silk suture and then incision was made anteriorly with a 10 blade, carried down laterally toward the ankle and then posteriorly outlining the flap. Incision is now deepened with cautery over the tibia and fibula, and lateral and medial groups of muscles were transected, all the way down to the fibula. Anterior tibial artery is clamped, divided and ligated appears to be occluded by the way and very hard atherosclerotic. The periosteal elevator was used to elevate the periosteum about two inches above the level of the original skin incision and then the tibia and fibula were transected with oscillating saw and below-knee amputation. Remnant of the leg amputated with the large amputation Margareth knife. When this was completed the area is irrigated with copious amounts of saline and meticulous hemostasis obtained using 0 Vicryl stick ties for the branches of the trifurcation and cautery for small bleeders. Once more, the area was irrigated. The posterior flap now tailored and then the stump closed nicely with 0 Vicryl in two layers and then 2-0 Prolene for the skin. Dressing applied. The patient tolerated the procedure well. Tierra HORTON/JESUSITA /3:42 PM /10:21 PM
[2017-03-25] VITALS: BP 98/58; PULSE 86; RESP 20; TEMP 97.7; O2SAT 95
[2017-03-25] MEDS: PIPERACIL-TAZO 3.375 GM PREMIX 50 ML IV SCH ×5 (00:34→22:09)
[2017-03-25 04:00] VITALS: BP 106/68; PULSE 98; RESP 18; TEMP 98.9; O2SAT 95
[2017-03-25] MEDS: ACETAMINOPHEN/HYDROcodone 325 MG/10 MG TAB PO PRN ×4 (04:24→20:37)
[2017-03-25 08:00] VITALS: BP 129/86; PULSE 99; RESP 20; TEMP 98; O2SAT 94
[2017-03-25] MEDS: INSULIN ASPART SUPPLEMENTAL SCALE SQ SCH ×4 (08:00→22:10)
[2017-03-25] MEDS: MORPHINE SULFATE 4 MG/ML INJ IV PUSH PRN ×4 (08:18→22:10)
[2017-03-25] MEDS: INSULIN DETEMIR 100 UNITS/ML VIAL SQ SCH ×2 (09:00→22:09)
[2017-03-25] MEDS: SELENIUM SULFIDE 1% SHAMPOO 207 ML BOTTLE TOPICAL SCH (09:00)
[2017-03-25] MEDS: GABAPENTIN 400 MG CAP PO SCH ×3 (09:33→17:17)
[2017-03-25] MEDS: HEPARIN SODIUM - SQ 10,000 UNITS/ML VIAL SQ SCH ×2 (09:33→20:36)
[2017-03-25] MEDS: SODIUM CHLORIDE 0.9% FLUSH 10 ML FLUSH IV FLUSH SCH ×2 (09:34→20:36)
--- NOTE | 2017-03-25 10:39 | HHI.PR ---
Subjective Remarks Follow-up osteomyelitis. He is complaining of pain on the left lower extremity status post stage BKA discussed with nursing Objective Vitals Vital Signs Date Time Temp Pulse Resp B/P (MAP) Pulse Ox O2 Delivery O2 Flow Rate FiO2 03/25/17 08:00 98.0 99 20 129/86 (100) 94 03/25/17 04:00 98.9 98 18 106/68 (81) 95 03/25/17 00:00 97.7 86 20 98/58 (71) 95 03/24/17 20:00 Room Air 03/24/17 20:00 97.9 86 18 103/77 (86) 96 03/24/17 16:00 97.4 92 20 118/65 (82) 91 03/24/17 13:45 91 12 131/78 (95) 99 Room Air 03/24/17 13:30 85 12 131/77 (95) 99 Nasal Cannula 3 03/24/17 13:15 79 12 123/74 (90) 98 Nasal Cannula 3 03/24/17 13:00 98.4 83 12 134/75 (94) 94 Nasal Cannula 3 03/24/17 12:00 98.5 82 20 123/79 (94) 96 I/O 03/24/17 03/24/17 03/24/17 03/25/17 03/25/17 03/25/17 07:00 15:00 23:00 07:00 15:00 23:00 Intake Total 340 ml 1050 ml 340 ml Output Total 150 ml 100 ml 600 ml Balance 190 ml 950 ml -260 ml Intake Oral 240 ml 240 ml IV Total 100 ml 50 ml 100 ml Other 1000 ml Output Urine Total 150 ml 600 ml Estimated Blood Loss 100 ml # Bowel Movements 0 1 Result Diagram: 03/24/17 0549 03/24/17 0549 Imaging Last Impressions Brain MRI 03/21/17 0000 Signed Impressions: Service Date/Time: Tuesday, March 21, 2017 11:19 - CONCLUSION: 1. Chronic ischemic changes. 2. No acute infarction. 3. Skin lesion again seen within the left occipital region. 4. Sinus disease greatest in the left maxillary sinus. Yonatan Mccarthy MD Tumor Localization 03/18/17 0000 Signed Impressions: Service Date/Time: Saturday, March 18, 2017 13:33 - CONCLUSION: 1. Osteomyelitis of the distal fifth metatarsal of the left foot. 2. Osteomyelitis of the distal second and third metatarsal and proximal phalanges of the second and third digits of the right foot. Yonatan Mccarthy MD Carotid Artery Ultrasound 03/18/17 0000 Signed Impressions: Service Date/Time: Saturday, March 18, 2017 21:43 - CONCLUSION: No acute disease. Christofer Barron MD Aorta w/Runoff CTA 03/18/17 0000 Signed Impressions: Service Date/Time: Saturday, March 18, 2017 22:28 - CONCLUSION: 1. No significant aortic occlusive disease or iliac inflow stenosis. 2. No significant outflow stenosis. 3. Limited evaluation of the runoff vessels due to venous contamination secondary to significant hyperemia. There does appear to be limited runoff bilaterally, worse on the left - with apparent single vessel posterior tibial artery runoff. 4. Findings consistent with significant cellulitis of the distal ankles/feet bilaterally with combination of chronic and acute erosive bony changes most notably in the proximal left fifth metatarsal consistent with osteomyelitis. 5. Bulky bilateral inguinal adenopathy, likely infectious/inflammatory in etiology. 6. Additional ancillary findings, as above. Hunter Barahona MD Foot X-Ray 03/17/17 1613 Signed Impressions: Service Date/Time: Friday, March 17, 2017 16:23 - CONCLUSION: Findings of involvement of the metatarsal phalangeal joint toes #3 and 4 with involvement of the distal shaft of the fourth metatarsal suggesting osteomyelitis in or associated septic arthritis both sides of the joints. Jaxon Lisa MD Head CT 03/17/17 1138 Signed Impressions: Service Date/Time: Friday, March 17, 2017 12:12 - CONCLUSION: 1. No acute intracranial abnormality is identified. There is encephalomalacia likely related to old ischemia in the right frontal periventricular white matter. 2. There is a 3.7 cm subcutaneous mass in the left inferior occipital region. The appearance favors a sebaceous cyst or epidermal inclusion cyst. Suggest correlating with clinical examination to ensure that a more concerning abnormality is not present in this area. 3. Complete opacification of the partially visualized left maxillary sinus. Melquiades Vann MD Objective Remarks GENERAL: This is a well-nourished, well-developed patient, in no apparent distress. SKIN: Left lower extremity BKA with dry dressing CARDIOVASCULAR: Regular rate and rhythm without murmurs, gallops, or rubs. Diminished pedal pulses. RESPIRATORY: Clear to auscultation. Breath sounds equal bilaterally. No wheezes , rales, or rhonchi. GASTROINTESTINAL: Abdomen soft, non-tender, nondistended. No guarding. MUSCULOSKELETAL: Left lower extremity amputated at the leg NEUROLOGICAL: Awake and alert. Motor and sensory grossly within normal limits. Normal speech. Procedures Amputation of left lower extremity 03/20/17. Staged left BKA o March 24, 2017 A/P Problem List: (1) Osteomyelitis of toe of left foot ICD Code: M86.9 - Osteomyelitis of toe of left foot Status: Chronic (2) DM (diabetes mellitus), type 2, uncontrolled ICD Code: E11.65 - DM (diabetes mellitus), type 2, uncontrolled Status: Chronic (3) Hyperglycemia ICD Code: R73.9 - Hyperglycemia Status: Acute Assessment and Plan Sepsis Due to osteomyelitis b/l feet. Foot x ray reviewed and suggests osteomyelitis. MRI and WBC scan confirms OM. CTA runoff noted. Vascular surgery consult appreciated. S/p amputation of left leg with placement of wound vac. Infectious disease consult appreciated. One blood culture growing Bacteroides species and the other is growing Veillonella species. - continue Zosyn IV. - Completion of left BKA. Bone biopsy of the right foot has been requested. Per vascular surgery patient will also need right BKA - pain control with a bowel regimen. Continue Lortab and IV morphine - Follow blood culture data negative to date 03/23/17. - follow up with infectious disease. - Mild leukocytosis will monitor Slurred speech Ongoing for the past 2 weeks. He also endorses increasing weakness. CT of the head was unremarkable except for encephalomalacia. MRI brain without acute process. - B12 level borderline low, will give B12 IM x 1. - PT/ OT. DM A1c 18.3 - Accu checks AC and HS. 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 Tobacco abuse The pt continues to smoke. - Cessation instruction. Anemia Appears chronic. - Follow CBC. Thrombocytopenia Likely reactive. - Follow CBC. DVT prophylaxis: Heparin SQ Discharge Planning Discharge planning will be a challenge patient has no payor source for rehabilitation or home care. He is homeless. Case management following Problem Qualifiers (1) DM (diabetes mellitus), type 2, uncontrolled: Qualified Codes: E11.42 - Type 2 diabetes mellitus with diabetic polyneuropathy ; E11.65 - Type 2 diabetes mellitus with hyperglycemia Wisam Lopez MD Mar 25, 2017 10:39
--- NOTE | 2017-03-25 10:55 | PD.CAR.PN ---
CVT Progress Note Subjective/Hospital Course: Patient with severe peripheral vascular disease medical noncompliance. Gangrene of the left foot and deformity and incipient gangrene of the right foot I agree with Dr. Hu that there is nothing to do for the left foot and below-knee amputation is the only option I will order CTA with a runoff to see how the right side looks like if there is any way to improve the blood flow there for the right foot will go the same way otherwise very soon Full consult dictated Thanks Charlotte 03/19/17 This gentleman is admitted for florid gangrene and osteomyelitis of the left foot and incipient osteomyelitis and gangrene of the right foot Patient needs urgent left below-knee amputation for otherwise he will eventually from this infection for he'll develop either endocarditis renal failure or both I discussed this with patient in detail and at this point he refuses surgery As far as the right leg is concerned that one is going the same way and in the near future patient will require right below-knee amputation There are no other options available this time with this extensive gangrene of the both sides Patient has aortogram with a runoff does reveals good inflow and then the level of the knee anterior tibial and peroneal arteries are occluded and posterior tibial arteries are the only flow to the feet and while there is some bits and pieces of anterior tibial artery but this is the for most part of occluded Carotid ultrasound is okay and nothing needs to be done about this further Again patient this point to refuses surgery so we'll see which way this goes 03/20/17 Patient today again questions need for surgery and I will not be the one to convince him one way or the other. At this point patient has significant left groin lymphadenopathy and ankle area is starting to get red and swollen. The catheter is also more swollen so I believe the infection and inflammation are spreading proximally I've done everything I can to explained to the patient that right now gangrenous foot is beyond salvage and at this point we are saving his life not his leg. Patient agreed to staged below-knee amputation. In face of swelling and infection today he will undergo guillotine below-knee amputation, placement of wound VAC and then in next few days we will schedule him for actual closure of the amputation stump, for otherwise the amputation stump will of course get infected 03/21/17 Patient doing well at this time Pain controlled by expert help of medicine service Wound VAC draining serosanguineous material Will take to the OR Thursday for completion below-knee amputation 03/22/17 Still fair amount of serosanguineous material draining from the below-knee guillotine amputation, but clearing up Wound VAC in place Will give another day on the wound VAC and then take patient to operating room tomorrow for completion below-knee amputation 03/25/2017 Status post second stage left below-knee amputation Dressing intact and dry will keep dressing on until Patient is a disposition problem considering he is homeless. In addition patient's right foot is infected and he has gangrene of the toes without any possibility of revascularization so probably next week he will need a right below-knee amputation although this will be done in 1 session rather than staged Objective: Vital Signs Date Time Temp Pulse Resp B/P (MAP) Pulse Ox O2 Delivery O2 Flow Rate FiO2 03/25/17 08:00 98.0 99 20 129/86 (100) 94 03/25/17 04:00 98.9 98 18 106/68 (81) 95 03/25/17 00:00 97.7 86 20 98/58 (71) 95 03/24/17 20:00 Room Air 03/24/17 20:00 97.9 86 18 103/77 (86) 96 03/24/17 16:00 97.4 92 20 118/65 (82) 91 03/24/17 13:45 91 12 131/78 (95) 99 Room Air 03/24/17 13:30 85 12 131/77 (95) 99 Nasal Cannula 3 03/24/17 13:15 79 12 123/74 (90) 98 Nasal Cannula 3 03/24/17 13:00 98.4 83 12 134/75 (94) 94 Nasal Cannula 3 03/24/17 12:00 98.5 82 20 123/79 (94) 96 Result Diagram: 03/24/17 0549 03/24/17 0549 Tierra Bennett MD Mar 25, 2017 10:55
[2017-03-25 12:23] VITALS: BP 133/78; PULSE 100; RESP 20; TEMP 99; O2SAT 95
[2017-03-25 16:06] VITALS: BP 141/89; PULSE 112; RESP 20; TEMP 100.2; O2SAT 93
[2017-03-25 20:00] VITALS: BP 151/88; PULSE 123; RESP 20; TEMP 98.2; O2SAT 94
[2017-03-26 01:00] VITALS: BP 140/69; PULSE 104; RESP 19; TEMP 97.6; O2SAT 95
[2017-03-26] MEDS: ACETAMINOPHEN/HYDROcodone 325 MG/10 MG TAB PO PRN ×3 (04:35→12:17)
[2017-03-26] MEDS: PIPERACIL-TAZO 3.375 GM PREMIX 50 ML IV SCH ×4 (04:35→23:28)
[2017-03-26 04:45] VITALS: BP 136/60; PULSE 98; RESP 20; TEMP 98; O2SAT 94
[2017-03-26] MEDS: MORPHINE SULFATE 4 MG/ML INJ IV PUSH PRN ×2 (06:44→11:00)
[2017-03-26] MEDS: GABAPENTIN 400 MG CAP PO SCH ×3 (07:54→18:05)
[2017-03-26 08:00] VITALS: BP 126/75; PULSE 108; RESP 16; TEMP 97.6; O2SAT 94
[2017-03-26] MEDS: INSULIN ASPART SUPPLEMENTAL SCALE SQ SCH ×4 (08:00→21:44)
[2017-03-26] MEDS: SODIUM CHLORIDE 0.9% FLUSH 10 ML FLUSH IV FLUSH SCH ×2 (09:00→21:00)
[2017-03-26] MEDS: INSULIN DETEMIR 100 UNITS/ML VIAL SQ SCH (09:00)
[2017-03-26 12:00] VITALS: BP 116/77; PULSE 107; RESP 20; TEMP 97.5; O2SAT 93
[2017-03-26] MEDS: HEPARIN SODIUM - SQ 10,000 UNITS/ML VIAL SQ SCH ×2 (12:18→21:40)
--- NOTE | 2017-03-26 13:01 | HHI.PR ---
Subjective Remarks Follow-up right foot osteomyelitis and left BKA. Complaining of surgical pain not relieved with current medications requesting increased dosing for at least 2 days. Discussed with nursing Objective Vitals Vital Signs Date Time Temp Pulse Resp B/P (MAP) Pulse Ox O2 Delivery O2 Flow Rate FiO2 03/26/17 12:00 97.5 107 20 116/77 (90) 93 03/26/17 08:00 97.6 108 16 126/75 (92) 94 03/26/17 04:45 98.0 98 20 136/60 (85) 94 03/26/17 01:00 97.6 104 19 140/69 (92) 95 03/25/17 20:00 98.2 123 20 151/88 (109) 94 03/25/17 19:00 Room Air 03/25/17 16:06 100.2 112 20 141/89 (106) 93 I/O 03/25/17 03/25/17 03/25/17 03/26/17 03/26/17 03/26/17 07:00 15:00 23:00 07:00 15:00 23:00 Intake Total 340 ml 50 ml 100 ml 1250 ml Output Total 600 ml 200 ml 400 ml Balance -260 ml 50 ml -100 ml 850 ml Intake Oral 240 ml 1200 ml IV Total 100 ml 50 ml 100 ml 50 ml Output Urine Total 600 ml 200 ml 400 ml # Bowel Movements 1 0 Result Diagram: 03/24/17 0549 03/24/17 0549 Objective Remarks GENERAL: This is a well-nourished, well-developed patient, in no apparent distress. SKIN: Left lower extremity BKA with dry dressing CARDIOVASCULAR: Regular rate and rhythm without murmurs, gallops, or rubs. Diminished pedal pulses. RESPIRATORY: Clear to auscultation. Breath sounds equal bilaterally. No wheezes , rales, or rhonchi. GASTROINTESTINAL: Abdomen soft, non-tender, nondistended. No guarding. MUSCULOSKELETAL: Left lower extremity amputated at the leg NEUROLOGICAL: Awake and alert. Motor and sensory grossly within normal limits. Normal speech. Procedures Amputation of left lower extremity 03/20/17. Staged left BKA o March 24, 2017 A/P Problem List: (1) Osteomyelitis of toe of left foot ICD Code: M86.9 - Osteomyelitis of toe of left foot Status: Chronic (2) DM (diabetes mellitus), type 2, uncontrolled ICD Code: E11.65 - DM (diabetes mellitus), type 2, uncontrolled Status: Chronic (3) Hyperglycemia ICD Code: R73.9 - Hyperglycemia Status: Acute Assessment and Plan Sepsis Due to osteomyelitis b/l feet. Foot x ray reviewed and suggests osteomyelitis. MRI and WBC scan confirms OM. CTA runoff noted. Vascular surgery consult appreciated. S/p amputation of left leg with placement of wound vac. Infectious disease consult appreciated. One blood culture growing Bacteroides species and the other is growing Veillonella species. - continue Zosyn IV. - Completion of left BKA. Bone biopsy of the right foot has been requested. Per vascular surgery patient will also need right BKA - pain control with a bowel regimen. Increase Lortab to 10 mg every 4 hours for pain scale 3-5 and 50 mg pain scale of 6-10. Also increase IV morphine to 5 mg every 4 hours for breakthrough pain - Follow blood culture data negative to date 03/23/17. - follow up with infectious disease. - Mild leukocytosis will monitor Slurred speech Ongoing for the past 2 weeks. He also endorses increasing weakness. CT of the head was unremarkable except for encephalomalacia. MRI brain without acute process. - B12 level borderline low, will give B12 IM x 1. - PT/ OT. DM A1c 18.3 - Accu checks AC and HS. 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 Tobacco abuse The pt continues to smoke. - Cessation instruction. Anemia Appears chronic. - Follow CBC. Thrombocytopenia Likely reactive. - Follow CBC. DVT prophylaxis: Heparin SQ Discharge Planning Discharge planning will be a challenge patient has no payor source for rehabilitation or home care. He is homeless. Case management following Problem Qualifiers (1) DM (diabetes mellitus), type 2, uncontrolled: Qualified Codes: E11.42 - Type 2 diabetes mellitus with diabetic polyneuropathy ; E11.65 - Type 2 diabetes mellitus with hyperglycemia Wisam Lopez MD Mar 26, 2017 13:01
[2017-03-26 16:00] VITALS: BP 137/93; PULSE 103; RESP 16; TEMP 98.6; O2SAT 93
[2017-03-26] MEDS: ACETAMINOPHEN/HYDROcodone 325 MG/7.5 MG TAB PO PRN ×2 (18:06→22:25)
[2017-03-26 20:00] VITALS: BP 104/65; PULSE 114; RESP 21; TEMP 98.6; O2SAT 94
[2017-03-26] MEDS ORDERED: INSULIN DETEMIR 100 UNITS/ML VIAL SQ SCH (21:00)
[2017-03-26] MEDS: MORPHINE SULFATE 8 MG/ML INJ IV PUSH PRN (23:28)
[2017-03-27 00:04] VITALS: BP 119/67; PULSE 98; RESP 18; TEMP 98.6; O2SAT 98
[2017-03-27] MEDS: ACETAMINOPHEN/HYDROcodone 325 MG/7.5 MG TAB PO PRN ×5 (05:15→23:38)
[2017-03-27] MEDS: PIPERACIL-TAZO 3.375 GM PREMIX 50 ML IV SCH ×4 (05:15→23:33)
[2017-03-27 05:26] VITALS: BP 135/76; PULSE 98; RESP 18; TEMP 99.4; O2SAT 92
[2017-03-27] MEDS: MORPHINE SULFATE 8 MG/ML INJ IV PUSH PRN ×3 (06:35→21:40)
[2017-03-27] MEDS: SODIUM CHLORIDE 0.9% FLUSH 10 ML FLUSH IV FLUSH SCH ×2 (06:54→21:40)
[2017-03-27 08:00] VITALS: BP 130/79; PULSE 106; RESP 18; TEMP 97.2; O2SAT 92
[2017-03-27] MEDS: HEPARIN SODIUM - SQ 10,000 UNITS/ML VIAL SQ SCH ×2 (08:23→21:40)
[2017-03-27] MEDS: GABAPENTIN 400 MG CAP PO SCH ×3 (08:23→17:04)
[2017-03-27] MEDS: INSULIN ASPART SUPPLEMENTAL SCALE SQ SCH ×4 (08:24→23:34)
[2017-03-27] MEDS: INSULIN DETEMIR 100 UNITS/ML VIAL SQ SCH ×3 (08:24→23:34)
[2017-03-27] MEDS: SELENIUM SULFIDE 1% SHAMPOO 207 ML BOTTLE TOPICAL SCH (08:25)
--- NOTE | 2017-03-27 11:03 | HHI.PR ---
Subjective Remarks Follow-up diabetic foot infection. States surgical pain is managed with current medications. Discussed with basilar surgery, patient agreeable to right BKA Objective Vitals Vital Signs Date Time Temp Pulse Resp B/P (MAP) Pulse Ox O2 Delivery O2 Flow Rate FiO2 03/27/17 08:00 97.2 106 18 130/79 (96) 92 03/27/17 05:26 99.4 98 18 135/76 (95) 92 03/27/17 00:04 98.6 98 18 119/67 (84) 98 03/26/17 20:00 98.6 114 21 104/65 (78) 94 03/26/17 19:00 Room Air 03/26/17 16:00 98.6 103 16 137/93 (108) 93 03/26/17 12:00 97.5 107 20 116/77 (90) 93 I/O 03/26/17 03/26/17 03/26/17 03/27/17 03/27/17 03/27/17 07:00 15:00 23:00 07:00 15:00 23:00 Intake Total 1250 ml 720 ml 240 ml Output Total 400 ml 0 ml 1100 ml Balance 850 ml 720 ml -860 ml Intake Oral 1200 ml 720 ml 240 ml IV Total 50 ml Output Urine Total 400 ml 0 ml 1100 ml # Bowel Movements 0 0 0 Result Diagram: 03/24/17 0549 03/24/17 0549 Objective Remarks GENERAL: This is a well-nourished, well-developed patient, in no apparent distress. SKIN: Left lower extremity BKA with dry dressing CARDIOVASCULAR: Regular rate and rhythm without murmurs, gallops, or rubs. Diminished pedal pulses. RESPIRATORY: Clear to auscultation. Breath sounds equal bilaterally. No wheezes , rales, or rhonchi. GASTROINTESTINAL: Abdomen soft, non-tender, nondistended. No guarding. MUSCULOSKELETAL: Left lower extremity amputated at the leg . Open wound between the right third and fourth toes NEUROLOGICAL: Awake and alert. Motor and sensory grossly within normal limits. Normal speech. Procedures Amputation of left lower extremity 03/20/17. Staged left BKA o March 24, 2017 A/P Problem List: (1) Osteomyelitis of toe of left foot ICD Code: M86.9 - Osteomyelitis of toe of left foot Status: Chronic (2) DM (diabetes mellitus), type 2, uncontrolled ICD Code: E11.65 - DM (diabetes mellitus), type 2, uncontrolled Status: Chronic (3) Hyperglycemia ICD Code: R73.9 - Hyperglycemia Status: Acute Assessment and Plan Sepsis Due to osteomyelitis b/l feet/DFI. Foot x ray reviewed and suggests osteomyelitis. MRI and WBC scan confirms OM. CTA runoff noted. Vascular surgery consult appreciated. S/p amputation of left leg with placement of wound vac. Infectious disease consult appreciated. One blood culture growing Bacteroides species and the other is growing Veillonella species. - continue Zosyn IV. - Completion of left BKA. We'll cancel biopsy of the right foot patient agreeable to proceed with right BKA - pain control with a bowel regimen. Continue Lortab and IV morphine for breakthrough pain - Follow blood culture data negative to date 03/23/17. - follow up with infectious disease. - Mild leukocytosis will monitor Slurred speech Ongoing for the past 2 weeks. He also endorses increasing weakness. CT of the head was unremarkable except for encephalomalacia. MRI brain without acute process. - B12 level borderline low, will give B12 IM x 1. - PT/ OT. DM A1c 18.3 - Accu checks AC and HS. 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 Tobacco abuse The pt continues to smoke. - Cessation instruction. Anemia Appears chronic. - Follow CBC. Thrombocytopenia Likely reactive. - Follow CBC. DVT prophylaxis: Heparin SQ Discharge Planning Discharge planning will be a challenge patient has no payor source for rehabilitation or home care. He is homeless. Case management following Problem Qualifiers (1) DM (diabetes mellitus), type 2, uncontrolled: Qualified Codes: E11.42 - Type 2 diabetes mellitus with diabetic polyneuropathy ; E11.65 - Type 2 diabetes mellitus with hyperglycemia Wisam Lopez MD Mar 27, 2017 11:03
[2017-03-27 12:00] VITALS: BP 123/68; PULSE 95; RESP 18; TEMP 98; O2SAT 94
--- NOTE | 2017-03-27 13:57 | PD.CAR.PN ---
CVT Progress Note Subjective/Hospital Course: Patient with severe peripheral vascular disease medical noncompliance. Gangrene of the left foot and deformity and incipient gangrene of the right foot I agree with Dr. Hu that there is nothing to do for the left foot and below-knee amputation is the only option I will order CTA with a runoff to see how the right side looks like if there is any way to improve the blood flow there for the right foot will go the same way otherwise very soon Full consult dictated Thanks Charlotte 03/19/17 This gentleman is admitted for florid gangrene and osteomyelitis of the left foot and incipient osteomyelitis and gangrene of the right foot Patient needs urgent left below-knee amputation for otherwise he will eventually from this infection for he'll develop either endocarditis renal failure or both I discussed this with patient in detail and at this point he refuses surgery As far as the right leg is concerned that one is going the same way and in the near future patient will require right below-knee amputation There are no other options available this time with this extensive gangrene of the both sides Patient has aortogram with a runoff does reveals good inflow and then the level of the knee anterior tibial and peroneal arteries are occluded and posterior tibial arteries are the only flow to the feet and while there is some bits and pieces of anterior tibial artery but this is the for most part of occluded Carotid ultrasound is okay and nothing needs to be done about this further Again patient this point to refuses surgery so we'll see which way this goes 03/20/17 Patient today again questions need for surgery and I will not be the one to convince him one way or the other. At this point patient has significant left groin lymphadenopathy and ankle area is starting to get red and swollen. The catheter is also more swollen so I believe the infection and inflammation are spreading proximally I've done everything I can to explained to the patient that right now gangrenous foot is beyond salvage and at this point we are saving his life not his leg. Patient agreed to staged below-knee amputation. In face of swelling and infection today he will undergo guillotine below-knee amputation, placement of wound VAC and then in next few days we will schedule him for actual closure of the amputation stump, for otherwise the amputation stump will of course get infected 03/21/17 Patient doing well at this time Pain controlled by expert help of medicine service Wound VAC draining serosanguineous material Will take to the OR Thursday for completion below-knee amputation 03/22/17 Still fair amount of serosanguineous material draining from the below-knee guillotine amputation, but clearing up Wound VAC in place Will give another day on the wound VAC and then take patient to operating room tomorrow for completion below-knee amputation 03/25/2017 Status post second stage left below-knee amputation Dressing intact and dry will keep dressing on until Patient is a disposition problem considering he is homeless. In addition patient's right foot is infected and he has gangrene of the toes without any possibility of revascularization so probably next week he will need a right below-knee amputation although this will be done in 1 session rather than staged 03/27/2017 Status post left BKA Incision is nice clean and dry dressing has been removed Skin looks healthy and site is healing well I discussed with patient status of his right leg. He has florid gangrene of the right foot and there is no other way down to do right below-knee amputation Patient agrees to the same We will go ahead with a right below-knee amputation Thursday or Thursday Objective: Vital Signs Date Time Temp Pulse Resp B/P (MAP) Pulse Ox O2 Delivery O2 Flow Rate FiO2 03/27/17 12:00 98.0 95 18 123/68 (86) 94 03/27/17 08:00 97.2 106 18 130/79 (96) 92 03/27/17 05:26 99.4 98 18 135/76 (95) 92 03/27/17 00:04 98.6 98 18 119/67 (84) 98 03/26/17 20:00 98.6 114 21 104/65 (78) 94 03/26/17 19:00 Room Air 03/26/17 16:00 98.6 103 16 137/93 (108) 93 Result Diagram: 03/24/17 0549 03/24/17 0549 Tierra Bennett MD Mar 27, 2017 13:57
[2017-03-27 16:00] VITALS: BP 128/76; PULSE 75; RESP 17; TEMP 98.8; O2SAT 96
[2017-03-27 20:00] VITALS: BP 122/76; PULSE 98; RESP 16; TEMP 99.1; O2SAT 94
[2017-03-28] VITALS: BP 117/75; PULSE 87; RESP 16; TEMP 98.7; O2SAT 96
[2017-03-28] MEDS: SODIUM CHLORIDE 0.9% FLUSH 10 ML FLUSH IV FLUSH PRN (03:13)
[2017-03-28] MEDS: MORPHINE SULFATE 8 MG/ML INJ IV PUSH PRN ×4 (03:13→17:16)
[2017-03-28 04:00] VITALS: BP 128/65; PULSE 85; RESP 16; TEMP 98.1; O2SAT 96
[2017-03-28] MEDS: ACETAMINOPHEN/HYDROcodone 325 MG/7.5 MG TAB PO PRN ×2 (05:22→10:56)
[2017-03-28] MEDS: PIPERACIL-TAZO 3.375 GM PREMIX 50 ML IV SCH ×4 (05:22→23:18)
[2017-03-28 08:00] VITALS: BP 144/87; PULSE 95; RESP 20; TEMP 98.6; O2SAT 95
[2017-03-28] MEDS: INSULIN ASPART SUPPLEMENTAL SCALE SQ SCH ×4 (08:00→23:19)
[2017-03-28] MEDS: GABAPENTIN 400 MG CAP PO SCH ×4 (08:21→23:12)
[2017-03-28] MEDS: HEPARIN SODIUM - SQ 10,000 UNITS/ML VIAL SQ SCH ×2 (08:22→21:00)
[2017-03-28] MEDS: INSULIN DETEMIR 100 UNITS/ML VIAL SQ SCH ×2 (08:22→23:36)
[2017-03-28] MEDS: SODIUM CHLORIDE 0.9% FLUSH 10 ML FLUSH IV FLUSH SCH ×2 (08:22→23:14)
[2017-03-28] MEDS: SELENIUM SULFIDE 1% SHAMPOO 207 ML BOTTLE TOPICAL SCH (08:40)
--- NOTE | 2017-03-28 09:10 | PD.CAR.PN ---
CVT Progress Note Subjective/Hospital Course: Patient with severe peripheral vascular disease medical noncompliance. Gangrene of the left foot and deformity and incipient gangrene of the right foot I agree with Dr. Hu that there is nothing to do for the left foot and below-knee amputation is the only option I will order CTA with a runoff to see how the right side looks like if there is any way to improve the blood flow there for the right foot will go the same way otherwise very soon Full consult dictated Thanks Charlotte 03/19/17 This gentleman is admitted for florid gangrene and osteomyelitis of the left foot and incipient osteomyelitis and gangrene of the right foot Patient needs urgent left below-knee amputation for otherwise he will eventually from this infection for he'll develop either endocarditis renal failure or both I discussed this with patient in detail and at this point he refuses surgery As far as the right leg is concerned that one is going the same way and in the near future patient will require right below-knee amputation There are no other options available this time with this extensive gangrene of the both sides Patient has aortogram with a runoff does reveals good inflow and then the level of the knee anterior tibial and peroneal arteries are occluded and posterior tibial arteries are the only flow to the feet and while there is some bits and pieces of anterior tibial artery but this is the for most part of occluded Carotid ultrasound is okay and nothing needs to be done about this further Again patient this point to refuses surgery so we'll see which way this goes 03/20/17 Patient today again questions need for surgery and I will not be the one to convince him one way or the other. At this point patient has significant left groin lymphadenopathy and ankle area is starting to get red and swollen. The catheter is also more swollen so I believe the infection and inflammation are spreading proximally I've done everything I can to explained to the patient that right now gangrenous foot is beyond salvage and at this point we are saving his life not his leg. Patient agreed to staged below-knee amputation. In face of swelling and infection today he will undergo guillotine below-knee amputation, placement of wound VAC and then in next few days we will schedule him for actual closure of the amputation stump, for otherwise the amputation stump will of course get infected 03/21/17 Patient doing well at this time Pain controlled by expert help of medicine service Wound VAC draining serosanguineous material Will take to the OR Thursday for completion below-knee amputation 03/22/17 Still fair amount of serosanguineous material draining from the below-knee guillotine amputation, but clearing up Wound VAC in place Will give another day on the wound VAC and then take patient to operating room tomorrow for completion below-knee amputation 03/25/2017 Status post second stage left below-knee amputation Dressing intact and dry will keep dressing on until Patient is a disposition problem considering he is homeless. In addition patient's right foot is infected and he has gangrene of the toes without any possibility of revascularization so probably next week he will need a right below-knee amputation although this will be done in 1 session rather than staged 03/27/2017 Status post left BKA Incision is nice clean and dry dressing has been removed Skin looks healthy and site is healing well I discussed with patient status of his right leg. He has florid gangrene of the right foot and there is no other way down to do right below-knee amputation Patient agrees to the same We will go ahead with a right below-knee amputation Thursday or Thursday03/28/2017 Left BKA site is clean and dry Dressing removed daily Right foot is gangrenous in the distal land and this is combination of wet and dry gangrene with no remedial surgery to be done to preserve any part of the foot Proceed tomorrow with the right BKA single-stage amputation with closure Objective: Vital Signs Date Time Temp Pulse Resp B/P (MAP) Pulse Ox O2 Delivery O2 Flow Rate FiO2 03/28/17 04:00 98.1 85 16 128/65 (86) 96 03/28/17 00:00 98.7 87 16 117/75 (89) 96 03/28/17 00:00 Room Air 03/27/17 20:00 99.1 98 16 122/76 (91) 94 03/27/17 19:00 Room Air 03/27/17 16:00 98.8 75 17 128/76 (93) 96 03/27/17 12:00 98.0 95 18 123/68 (86) 94 Result Diagram: 03/24/17 0549 03/24/17 0549 Tierra Bennett MD Mar 28, 2017 09:10
[2017-03-28 12:00] VITALS: BP 110/81; PULSE 93; RESP 20; TEMP 99.4; O2SAT 95
--- NOTE | 2017-03-28 14:53 | HHI.PR ---
Subjective Remarks Follow-up diabetic foot infection. Complaining of phantom pain. Agrees to modify pain management to include tramadol increase Neurontin. Patient aware I will not be prescribing narcotics after discharge. Discussed with nursing Objective Vitals Vital Signs Date Time Temp Pulse Resp B/P (MAP) Pulse Ox O2 Delivery O2 Flow Rate FiO2 03/28/17 12:00 99.4 93 20 110/81 (91) 95 03/28/17 08:00 98.6 95 20 144/87 (106) 95 03/28/17 08:00 Room Air 03/28/17 04:00 98.1 85 16 128/65 (86) 96 03/28/17 00:00 98.7 87 16 117/75 (89) 96 03/28/17 00:00 Room Air 03/27/17 20:00 99.1 98 16 122/76 (91) 94 03/27/17 19:00 Room Air 03/27/17 16:00 98.8 75 17 128/76 (93) 96 I/O 03/27/17 03/27/17 03/27/17 03/28/17 03/28/17 03/28/17 07:00 15:00 23:00 07:00 15:00 23:00 Intake Total 240 ml 1540 ml 580 ml Output Total 1100 ml 600 ml Balance -860 ml 940 ml 580 ml Intake Oral 240 ml 1440 ml 480 ml IV Total 100 ml 100 ml Output Urine Total 1100 ml 600 ml # Voids 1 # Bowel Movements 0 2 0 Result Diagram: 03/24/17 0549 03/24/17 0549 Objective Remarks GENERAL: This is a well-nourished, well-developed patient, in no apparent distress. SKIN: Left lower extremity BKA with dry dressing CARDIOVASCULAR: Regular rate and rhythm without murmurs, gallops, or rubs. Diminished pedal pulses. RESPIRATORY: Clear to auscultation. Breath sounds equal bilaterally. No wheezes , rales, or rhonchi. GASTROINTESTINAL: Abdomen soft, non-tender, nondistended. No guarding. MUSCULOSKELETAL: Left lower extremity amputated at the leg . Open wound between the right third and fourth toes NEUROLOGICAL: Awake and alert. Motor and sensory grossly within normal limits. Normal speech. Procedures Amputation of left lower extremity 03/20/17. Staged left BKA o March 24, 2017 A/P Problem List: (1) Osteomyelitis of toe of left foot ICD Code: M86.9 - Osteomyelitis of toe of left foot Status: Chronic (2) DM (diabetes mellitus), type 2, uncontrolled ICD Code: E11.65 - DM (diabetes mellitus), type 2, uncontrolled Status: Chronic (3) Hyperglycemia ICD Code: R73.9 - Hyperglycemia Status: Acute Assessment and Plan Sepsis Due to osteomyelitis b/l feet/DFI. Foot x ray reviewed and suggests osteomyelitis. MRI and WBC scan confirms OM. CTA runoff noted. Vascular surgery consult appreciated. S/p amputation of left leg with placement of wound vac. Infectious disease consult appreciated. One blood culture growing Bacteroides species and the other is growing Veillonella species. - continue Zosyn IV. - Completion of left BKA. We'll cancel biopsy of the right foot patient agreeable to proceed with right BKA tomorrow - pain control with a bowel regimen. Continue Lortab and IV morphine for breakthrough pain. Tramadol and increase Neurontin because of phantom pain - Follow blood culture data negative to date 03/23/17. - follow up with infectious disease. - Mild leukocytosis will monitor Slurred speech Ongoing for the past 2 weeks. He also endorses increasing weakness. CT of the head was unremarkable except for encephalomalacia. MRI brain without acute process. - B12 level borderline low, will give B12 IM x 1. - PT/ OT. DM A1c 18.3 - Accu checks AC and HS. 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 Tobacco abuse The pt continues to smoke. - Cessation instruction. Anemia Appears chronic. - Follow CBC. Thrombocytopenia Likely reactive. - Follow CBC. DVT prophylaxis: Heparin SQ Discharge Planning Discharge planning will be a challenge patient has no payor source for rehabilitation or home care. He is homeless. Case management following Problem Qualifiers (1) DM (diabetes mellitus), type 2, uncontrolled: Qualified Codes: E11.42 - Type 2 diabetes mellitus with diabetic polyneuropathy ; E11.65 - Type 2 diabetes mellitus with hyperglycemia Wisam Lopez MD Mar 28, 2017 14:53
[2017-03-28] MEDS ORDERED: traMADol HCL 50 MG TAB PO PRN (15:00)
[2017-03-28] MEDS: ACETAMINOPHEN/HYDROcodone 325 MG/10 MG TAB PO PRN ×2 (16:22→23:17)
[2017-03-28] MEDS: DOCUSATE SODIUM 50 MG/SENNA 8.6 MG TAB PO SCH ×2 (16:28→21:00)
[2017-03-28] MEDS ORDERED: GABAPENTIN 400 MG CAP PO SCH (18:00)
[2017-03-28 20:00] VITALS: BP 111/68; PULSE 86; RESP 18; TEMP 98.5; O2SAT 97
[2017-03-29] VITALS (7 sets, daily range): BP systolic 99–148; BP diastolic 53–89; PULSE 84–115; RESP 16–18; TEMP 97.5–102.3; O2SAT 90–96
[2017-03-29] MEDS: MORPHINE SULFATE 8 MG/ML INJ IV PUSH PRN ×4 (01:18→22:01)
[2017-03-29] MEDS: SODIUM CHLORIDE 0.9% FLUSH 10 ML FLUSH IV FLUSH PRN (01:19)
[2017-03-29] MEDS: PIPERACIL-TAZO 3.375 GM PREMIX 50 ML IV SCH ×3 (05:06→17:53)
[2017-03-29] MEDS ORDERED: INSULIN DETEMIR 100 UNITS/ML VIAL SQ ONE (08:00)
[2017-03-29] MEDS: INSULIN ASPART SUPPLEMENTAL SCALE SQ SCH ×4 (08:00→21:52)
[2017-03-29] MEDS ORDERED: ceFAZolin 2 GM PREMIX 50 ML ONE (08:34)
[2017-03-29] MEDS: SELENIUM SULFIDE 1% SHAMPOO 207 ML BOTTLE TOPICAL SCH (09:00)
[2017-03-29] MEDS ORDERED: INSULIN DETEMIR 100 UNITS/ML VIAL SQ SCH (09:00)
[2017-03-29] MEDS: SODIUM CHLORIDE 0.9% FLUSH 10 ML FLUSH IV FLUSH SCH ×2 (09:00→21:51)
[2017-03-29] MEDS ORDERED: MIDAZOLAM HCL 2 MG/2 ML VIAL ONE (10:05)
[2017-03-29] MEDS ORDERED: *morphine SULFATE 4 MG/ML PERIprocedure ONLY ONE (10:19)
[2017-03-29] MEDS ORDERED: DO NOT ADM ANY ANTICOAGULANT DRUGS PRN (10:30)
[2017-03-29] MEDS: GABAPENTIN 400 MG CAP PO SCH ×4 (11:34→21:50)
[2017-03-29] MEDS: ACETAMINOPHEN/HYDROcodone 325 MG/10 MG TAB PO PRN ×2 (11:34→17:51)
[2017-03-29] MEDS: DOCUSATE SODIUM 50 MG/SENNA 8.6 MG TAB PO SCH ×2 (11:35→21:50)
[2017-03-29] MEDS: HEPARIN SODIUM - SQ 10,000 UNITS/ML VIAL SQ SCH ×2 (11:36→21:51)
--- NOTE | 2017-03-29 11:51 | HHI.PR ---
Subjective Remarks Follow-up diabetic foot infection. Tolerated right BKA now complaining significant pain not relieved with current pain management. Discussed with nursing Objective Vitals Vital Signs Date Time Temp Pulse Resp B/P (MAP) Pulse Ox O2 Delivery O2 Flow Rate FiO2 03/29/17 11:00 20 03/29/17 10:30 97.7 80 16 136/75 (95) 96 Nasal Cannula 2 03/29/17 10:24 15 03/29/17 10:15 87 16 131/70 (90) 100 Nasal Cannula 3 03/29/17 10:00 97.5 94 16 135/71 (92) 96 Nasal Cannula 3 03/29/17 04:00 99.7 84 18 125/76 (92) 95 03/29/17 02:35 84 112/56 (74) 03/29/17 00:00 Room Air 03/29/17 00:00 100.0 96 18 126/76 (93) 96 03/28/17 20:00 98.5 86 18 111/68 (82) 97 03/28/17 20:00 Room Air 03/28/17 12:00 99.4 93 20 110/81 (91) 95 I/O 03/28/17 03/28/17 03/28/17 03/29/17 03/29/17 03/29/17 07:00 15:00 23:00 07:00 15:00 23:00 Intake Total 580 ml 1200 ml 700 ml Output Total 950 ml 1300 ml Balance 580 ml 250 ml -600 ml Intake Oral 480 ml 1200 ml IV Total 100 ml 700 ml Output Urine Total 950 ml Estimated Blood Loss 300 ml Other 1000 ml # Voids 1 # Bowel Movements 0 Imaging Last Impressions Brain MRI 03/21/17 0000 Signed Impressions: Service Date/Time: Tuesday, March 21, 2017 11:19 - CONCLUSION: 1. Chronic ischemic changes. 2. No acute infarction. 3. Skin lesion again seen within the left occipital region. 4. Sinus disease greatest in the left maxillary sinus. Yonatan Mccarthy MD Tumor Localization 03/18/17 0000 Signed Impressions: Service Date/Time: Saturday, March 18, 2017 13:33 - CONCLUSION: 1. Osteomyelitis of the distal fifth metatarsal of the left foot. 2. Osteomyelitis of the distal second and third metatarsal and proximal phalanges of the second and third digits of the right foot. Yonatan Mccarthy MD Carotid Artery Ultrasound 03/18/17 0000 Signed Impressions: Service Date/Time: Saturday, March 18, 2017 21:43 - CONCLUSION: No acute disease. Christofer Barron MD Aorta w/Runoff CTA 03/18/17 0000 Signed Impressions: Service Date/Time: Saturday, March 18, 2017 22:28 - CONCLUSION: 1. No significant aortic occlusive disease or iliac inflow stenosis. 2. No significant outflow stenosis. 3. Limited evaluation of the runoff vessels due to venous contamination secondary to significant hyperemia. There does appear to be limited runoff bilaterally, worse on the left - with apparent single vessel posterior tibial artery runoff. 4. Findings consistent with significant cellulitis of the distal ankles/feet bilaterally with combination of chronic and acute erosive bony changes most notably in the proximal left fifth metatarsal consistent with osteomyelitis. 5. Bulky bilateral inguinal adenopathy, likely infectious/inflammatory in etiology. 6. Additional ancillary findings, as above. Hunter Barahona MD Foot X-Ray 03/17/17 1613 Signed Impressions: Service Date/Time: Friday, March 17, 2017 16:23 - CONCLUSION: Findings of involvement of the metatarsal phalangeal joint toes #3 and 4 with involvement of the distal shaft of the fourth metatarsal suggesting osteomyelitis in or associated septic arthritis both sides of the joints. Jaxon Lisa MD Head CT 03/17/17 1138 Signed Impressions: Service Date/Time: Friday, March 17, 2017 12:12 - CONCLUSION: 1. No acute intracranial abnormality is identified. There is encephalomalacia likely related to old ischemia in the right frontal periventricular white matter. 2. There is a 3.7 cm subcutaneous mass in the left inferior occipital region. The appearance favors a sebaceous cyst or epidermal inclusion cyst. Suggest correlating with clinical examination to ensure that a more concerning abnormality is not present in this area. 3. Complete opacification of the partially visualized left maxillary sinus. Melquiades aVnn MD Objective Remarks GENERAL: This is a well-nourished, well-developed patient, in distress due to pain SKIN: Warm and dry no lesions CARDIOVASCULAR: Regular rate and rhythm without murmurs, gallops, or rubs. Diminished pedal pulses. RESPIRATORY: Clear to auscultation. Breath sounds equal bilaterally. No wheezes , rales, or rhonchi. GASTROINTESTINAL: Abdomen soft, non-tender, nondistended. No guarding. MUSCULOSKELETAL: Bilateral BKA with dry and clean dressing NEUROLOGICAL: Awake and alert. Motor and sensory grossly within normal limits. Normal speech. Procedures Bilateral BKA A/P Problem List: (1) Osteomyelitis of toe of left foot ICD Code: M86.9 - Osteomyelitis of toe of left foot Status: Chronic (2) DM (diabetes mellitus), type 2, uncontrolled ICD Code: E11.65 - DM (diabetes mellitus), type 2, uncontrolled Status: Chronic (3) Hyperglycemia ICD Code: R73.9 - Hyperglycemia Status: Acute Assessment and Plan Sepsis Due to osteomyelitis b/l feet/DFI. Status post BKA. F Infectious disease consult appreciated. One blood culture growing Bacteroides species and the other is growing Veillonella species. - continue Zosyn IV repeat blood culture negative. - Wound care - pain control with a bowel regimen. Increase Lortab and IV morphine for breakthrough pain. Continue tramadol and Neurontin - follow up with infectious disease. - Mild leukocytosis will monitor Slurred speech Ongoing for the past 2 weeks. He also endorses increasing weakness. CT of the head was unremarkable except for encephalomalacia. MRI brain without acute process. - B12 level borderline low, will give B12 IM x 1. - PT/ OT. DM A1c 18.3 - Accu checks AC and HS. 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 Tobacco abuse The pt continues to smoke. - Cessation instruction. Anemia Appears chronic. - Follow CBC. Thrombocytopenia Likely reactive. - Follow CBC. DVT prophylaxis: Heparin SQ Discharge Planning Discharge planning will be a challenge patient has no payor source for rehabilitation or home care. He is homeless. Case management following Problem Qualifiers (1) DM (diabetes mellitus), type 2, uncontrolled: Qualified Codes: E11.42 - Type 2 diabetes mellitus with diabetic polyneuropathy ; E11.65 - Type 2 diabetes mellitus with hyperglycemia Wisam Lopez MD Mar 29, 2017 11:51
[2017-03-29] MEDS ORDERED: ESMOLOL HCL 100 MG/10 ML VIAL IV ONE (12:00)
[2017-03-29] MEDS ORDERED: ONDANSETRON HCL 4 MG/2 ML VIAL IV ONE (12:00)
[2017-03-29] MEDS ORDERED: PROPOFOL 200 MG/20 ML AMP IV ONE (12:00)
[2017-03-29] MEDS ORDERED: NEOSTIGMINE 5 MG/5 ML SYRINGE IV PUSH ONE (12:00)
[2017-03-29] MEDS ORDERED: LIDOCAINE HCL 1% PF 5 ML SYRINGE OTHER ONE (12:00)
[2017-03-29] MEDS ORDERED: GLYCOPYRROLATE 1 MG/5 ML SYRINGE IV PUSH ONE (12:00)
[2017-03-29] MEDS ORDERED: PHENYLEPH/NS 1000 MCG/10 ML SYR IV ONE (12:00)
[2017-03-29] MEDS ORDERED: ROCURONIUM INJ 50 MG/5 ML SYRINGE IV PUSH ONE (12:00)
[2017-03-29] MEDS ORDERED: ACETAMINOPHEN/HYDROcodone 325 MG/7.5 MG TAB PO PRN (14:30)
[2017-03-29] MEDS: ACETAMINOPHEN 325 MG TAB PO PRN (21:49)
[2017-03-29] MEDS: INSULIN DETEMIR 100 UNITS/ML VIAL SQ SCH (21:53)
[2017-03-30] MEDS: PIPERACIL-TAZO 3.375 GM PREMIX 50 ML IV SCH ×5 (00:16→22:47)
[2017-03-30] MEDS: ACETAMINOPHEN/HYDROcodone 325 MG/10 MG TAB PO PRN ×4 (00:22→22:47)
[2017-03-30 00:52] VITALS: TEMP 99.4
[2017-03-30 04:00] VITALS: BP 144/83; PULSE 90; RESP 16; TEMP 98.4; O2SAT 97
[2017-03-30 08:03] VITALS: BP 134/77; PULSE 94; RESP 18; TEMP 99; O2SAT 95
[2017-03-30] MEDS: SODIUM CHLORIDE 0.9% FLUSH 10 ML FLUSH IV FLUSH SCH ×2 (09:00→21:06)
[2017-03-30] MEDS: SELENIUM SULFIDE 1% SHAMPOO 207 ML BOTTLE TOPICAL SCH (09:00)
[2017-03-30] MEDS: DOCUSATE SODIUM 50 MG/SENNA 8.6 MG TAB PO SCH ×2 (09:00→21:00)
[2017-03-30] MEDS: INSULIN ASPART SUPPLEMENTAL SCALE SQ SCH ×4 (09:31→21:08)
[2017-03-30] MEDS: HEPARIN SODIUM - SQ 10,000 UNITS/ML VIAL SQ SCH ×2 (09:32→21:05)
[2017-03-30] MEDS: INSULIN DETEMIR 100 UNITS/ML VIAL SQ SCH ×2 (09:32→21:06)
[2017-03-30] MEDS: GABAPENTIN 400 MG CAP PO SCH ×4 (09:32→21:06)
--- NOTE | 2017-03-30 10:36 | PD.CAR.PN ---
CVT Progress Note Subjective/Hospital Course: Patient with severe peripheral vascular disease medical noncompliance. Gangrene of the left foot and deformity and incipient gangrene of the right foot I agree with Dr. Hu that there is nothing to do for the left foot and below-knee amputation is the only option I will order CTA with a runoff to see how the right side looks like if there is any way to improve the blood flow there for the right foot will go the same way otherwise very soon Full consult dictated Thanks Charlotte 03/19/17 This gentleman is admitted for florid gangrene and osteomyelitis of the left foot and incipient osteomyelitis and gangrene of the right foot Patient needs urgent left below-knee amputation for otherwise he will eventually from this infection for he'll develop either endocarditis renal failure or both I discussed this with patient in detail and at this point he refuses surgery As far as the right leg is concerned that one is going the same way and in the near future patient will require right below-knee amputation There are no other options available this time with this extensive gangrene of the both sides Patient has aortogram with a runoff does reveals good inflow and then the level of the knee anterior tibial and peroneal arteries are occluded and posterior tibial arteries are the only flow to the feet and while there is some bits and pieces of anterior tibial artery but this is the for most part of occluded Carotid ultrasound is okay and nothing needs to be done about this further Again patient this point to refuses surgery so we'll see which way this goes 03/20/17 Patient today again questions need for surgery and I will not be the one to convince him one way or the other. At this point patient has significant left groin lymphadenopathy and ankle area is starting to get red and swollen. The catheter is also more swollen so I believe the infection and inflammation are spreading proximally I've done everything I can to explained to the patient that right now gangrenous foot is beyond salvage and at this point we are saving his life not his leg. Patient agreed to staged below-knee amputation. In face of swelling and infection today he will undergo guillotine below-knee amputation, placement of wound VAC and then in next few days we will schedule him for actual closure of the amputation stump, for otherwise the amputation stump will of course get infected 03/21/17 Patient doing well at this time Pain controlled by expert help of medicine service Wound VAC draining serosanguineous material Will take to the OR Thursday for completion below-knee amputation 03/22/17 Still fair amount of serosanguineous material draining from the below-knee guillotine amputation, but clearing up Wound VAC in place Will give another day on the wound VAC and then take patient to operating room tomorrow for completion below-knee amputation 03/25/2017 Status post second stage left below-knee amputation Dressing intact and dry will keep dressing on until Patient is a disposition problem considering he is homeless. In addition patient's right foot is infected and he has gangrene of the toes without any possibility of revascularization so probably next week he will need a right below-knee amputation although this will be done in 1 session rather than staged 03/27/2017 Status post left BKA Incision is nice clean and dry dressing has been removed Skin looks healthy and site is healing well I discussed with patient status of his right leg. He has florid gangrene of the right foot and there is no other way down to do right below-knee amputation Patient agrees to the same We will go ahead with a right below-knee amputation Thursday or Thursday03/28/2017 Left BKA site is clean and dry Dressing removed daily Right foot is gangrenous in the distal land and this is combination of wet and dry gangrene with no remedial surgery to be done to preserve any part of the foot Proceed tomorrow with the right BKA single-stage amputation with closure 03/30/2017 Status post right below-knee amputation yesterday Dressing is clean dry and hemoglobin is stable In the meantime the left below-knee amputation site is clean and dry and healing nicely Obviously with bilateral amputations this patient will have a prolonged recovery and will need some sort of a intermediate placement From my point he will be able to leave the hospital by Thursday Stitches will stay in for at least 3 weeks based on delay in healing Objective: Vital Signs Date Time Temp Pulse Resp B/P (MAP) Pulse Ox O2 Delivery O2 Flow Rate FiO2 03/30/17 08:03 99.0 94 18 134/77 (96) 95 03/30/17 07:00 Nasal Cannula 3.00 03/30/17 04:00 98.4 90 16 144/83 (103) 97 03/30/17 00:52 99.4 03/29/17 23:42 Nasal Cannula 3.00 03/29/17 23:42 100.5 107 18 123/79 (94) 94 03/29/17 20:00 102.3 107 18 148/89 (108) 93 03/29/17 20:00 Nasal Cannula 3.00 03/29/17 16:00 99.3 115 18 99/53 (68) 90 03/29/17 13:00 Room Air 03/29/17 12:00 97.5 93 16 122/65 (84) 93 Tierra Bennett MD Mar 30, 2017 10:36
[2017-03-30 12:03] VITALS: BP 128/65; PULSE 94; RESP 18; TEMP 99.2; O2SAT 94
--- NOTE | 2017-03-30 13:37 | HHI.PR ---
Subjective Remarks Follow-up BKA. Improving pain. T-max 102. Complains of productive cough of yellow phlegm and difficulty urinating. Denies back and abdominal pain discussed with nursing Objective Vitals Vital Signs Date Time Temp Pulse Resp B/P (MAP) Pulse Ox O2 Delivery O2 Flow Rate FiO2 03/30/17 12:03 99.2 94 18 128/65 (86) 94 03/30/17 08:03 99.0 94 18 134/77 (96) 95 03/30/17 07:00 Nasal Cannula 3.00 03/30/17 04:00 98.4 90 16 144/83 (103) 97 03/30/17 00:52 99.4 03/29/17 23:42 Nasal Cannula 3.00 03/29/17 23:42 100.5 107 18 123/79 (94) 94 03/29/17 20:00 102.3 107 18 148/89 (108) 93 03/29/17 20:00 Nasal Cannula 3.00 03/29/17 16:00 99.3 115 18 99/53 (68) 90 I/O 03/29/17 03/29/17 03/29/17 03/30/17 03/30/17 03/30/17 07:00 15:00 23:00 07:00 15:00 23:00 Intake Total 700 ml 240 ml 0 ml Output Total 1300 ml 175 ml 600 ml Balance -600 ml 65 ml -600 ml Intake Oral 240 ml 0 ml IV Total 700 ml Output Urine Total 175 ml 600 ml Estimated Blood Loss 300 ml Other 1000 ml # Voids 0 # Bowel Movements 0 0 Imaging Last Impressions Brain MRI 03/21/17 0000 Signed Impressions: Service Date/Time: Tuesday, March 21, 2017 11:19 - CONCLUSION: 1. Chronic ischemic changes. 2. No acute infarction. 3. Skin lesion again seen within the left occipital region. 4. Sinus disease greatest in the left maxillary sinus. Yonatan Mccarthy MD Tumor Localization 03/18/17 0000 Signed Impressions: Service Date/Time: Saturday, March 18, 2017 13:33 - CONCLUSION: 1. Osteomyelitis of the distal fifth metatarsal of the left foot. 2. Osteomyelitis of the distal second and third metatarsal and proximal phalanges of the second and third digits of the right foot. Yonatan Mccarthy MD Carotid Artery Ultrasound 03/18/17 0000 Signed Impressions: Service Date/Time: Saturday, March 18, 2017 21:43 - CONCLUSION: No acute disease. Christofer Barron MD Aorta w/Runoff CTA 03/18/17 0000 Signed Impressions: Service Date/Time: Saturday, March 18, 2017 22:28 - CONCLUSION: 1. No significant aortic occlusive disease or iliac inflow stenosis. 2. No significant outflow stenosis. 3. Limited evaluation of the runoff vessels due to venous contamination secondary to significant hyperemia. There does appear to be limited runoff bilaterally, worse on the left - with apparent single vessel posterior tibial artery runoff. 4. Findings consistent with significant cellulitis of the distal ankles/feet bilaterally with combination of chronic and acute erosive bony changes most notably in the proximal left fifth metatarsal consistent with osteomyelitis. 5. Bulky bilateral inguinal adenopathy, likely infectious/inflammatory in etiology. 6. Additional ancillary findings, as above. Hunter Barahona MD Foot X-Ray 03/17/17 1613 Signed Impressions: Service Date/Time: Friday, March 17, 2017 16:23 - CONCLUSION: Findings of involvement of the metatarsal phalangeal joint toes #3 and 4 with involvement of the distal shaft of the fourth metatarsal suggesting osteomyelitis in or associated septic arthritis both sides of the joints. Jaxon Lisa MD Head CT 03/17/17 1138 Signed Impressions: Service Date/Time: Friday, March 17, 2017 12:12 - CONCLUSION: 1. No acute intracranial abnormality is identified. There is encephalomalacia likely related to old ischemia in the right frontal periventricular white matter. 2. There is a 3.7 cm subcutaneous mass in the left inferior occipital region. The appearance favors a sebaceous cyst or epidermal inclusion cyst. Suggest correlating with clinical examination to ensure that a more concerning abnormality is not present in this area. 3. Complete opacification of the partially visualized left maxillary sinus. Melquiades Vann MD Objective Remarks GENERAL: This is a well-nourished, well-developed patient, in no distress SKIN: Warm and dry no lesions CARDIOVASCULAR: Regular rate and rhythm without murmurs, gallops, or rubs. Diminished pedal pulses. RESPIRATORY: Clear to auscultation. Breath sounds equal bilaterally. No wheezes , rales, or rhonchi. GASTROINTESTINAL: Abdomen soft, non-tender, nondistended. No guarding. MUSCULOSKELETAL: Bilateral BKA with dry and clean dressing NEUROLOGICAL: Awake and alert. Motor and sensory grossly within normal limits. Normal speech. Procedures Bilateral BKA A/P Problem List: (1) Osteomyelitis of toe of left foot ICD Code: M86.9 - Osteomyelitis of toe of left foot Status: Chronic (2) DM (diabetes mellitus), type 2, uncontrolled ICD Code: E11.65 - DM (diabetes mellitus), type 2, uncontrolled Status: Chronic (3) Hyperglycemia ICD Code: R73.9 - Hyperglycemia Status: Acute Assessment and Plan Sepsis Due to osteomyelitis b/l feet/DFI. Status post jannet BKA. Infectious disease consult appreciated. One blood culture growing Bacteroides species and the other is growing Veillonella species. - continue Zosyn IV repeat blood culture negative. - Wound care - pain control with a bowel regimen. Ct tramadol, Lortab and IV morphine for breakthrough pain. Also on Neurontin. Wean narcotics - follow up with infectious disease. - Fever workup obtain repeat chest x-ray and urinalysis. Slurred speech Ongoing for the past 2 weeks. He also endorses increasing weakness. CT of the head was unremarkable except for encephalomalacia. MRI brain without acute process. - B12 level borderline low, will give B12 IM x 1. - PT/ OT. DM A1c 18.3 - Accu checks AC and HS. 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 Further increase Levemir to 16 units at bedtime and 20 units in the morning for better control - supervisor receiving and processing. - Continue gabapentin. Tobacco abuse The pt continues to smoke. - Cessation instruction. Anemia Appears chronic. - Follow CBC. Thrombocytopenia Likely reactive. - Follow CBC. DVT prophylaxis: Heparin SQ Discharge Planning Discharge planning will be a challenge patient has no payor source for rehabilitation or home care. He is homeless. Case management following Problem Qualifiers (1) DM (diabetes mellitus), type 2, uncontrolled: Qualified Codes: E11.42 - Type 2 diabetes mellitus with diabetic polyneuropathy ; E11.65 - Type 2 diabetes mellitus with hyperglycemia Wisam Lopez MD Mar 30, 2017 13:37
--- NOTE | 2017-03-30 14:09 | MP ---
cc: TIERRA BAZZI MD DATE OF SURGERY: 03/29/2017 PREOPERATIVE DIAGNOSIS Severe peripheral vascular disease, gangrene of both feet. POSTOPERATIVE DIAGNOSIS Severe peripheral vascular disease, gangrene of both feet. OPERATIVE PROCEDURE Right below-knee amputation. SURGEON Dr. Bazzi. ANESTHESIA General. ESTIMATED BLOOD LOSS 100 ccs. PROCEDURE The patient was prepped and draped in usual fashion and then with 0-silk ties the indentation are made in the skin to account for further incisions. Incision is made anteriorly with a 10 blade, carried down laterally and around posteriorly to create a flap. Incision is now deepened with a cautery medial and lateral to the tibia all the way down to the fibula laterally. At this point the anterior tibial artery and vein are ligated and divided. Medially tissue is divided below the level of the tibia. The tourniquet is now inflated. The tibia and fibula are dissected with periosteal elevator to about inch and a half above the level of the original incision and then with the oscillating saw both are transected. The posterior flap is created with amputation knife and specimen removed. Meticulous hemostasis was obtained. The trifurcation vessels were ligated with 0 Vicryl [id number] stick ties and then tourniquet was let down. Small bleeders are now ligated with 2-0 Vicryl and cauterized. The stump is irrigated with saline. The sharp edge of the tibia is taken down and tibia is angled with oscillating saw and rasp and then posterior flap was created. The sciatic nerve is of course removed. Once the flap is nicely tailored incision was closed with 0 Vicryl interrupted stitches for deep fascia, then for superficial fascia and skin closed with 2-0 Prolene interrupted stitches. The patient tolerated the procedure well. Tierra HORTON/BERNABE /1:03 PM /1:54 PM
--- NOTE | 2017-03-30 15:48 | RADRPT ---
EXAM DATE/TIME: 03/30/2017 15:10 [facility] COMPARISON: No previous studies available for comparison. INDICATIONS : evaluate for pneumonia MEDICAL HISTORY : Diabetes mellitus type II. SURGICAL HISTORY : Umbilical hernia repair. Left foot amputation ENCOUNTER: Subsequent ACUITY: 1 week PAIN SCORE: 0/10 LOCATION: chest FINDINGS: A single view of the chest demonstrates the lungs to be symmetrically aerated without evidence of mas s, infiltrate or effusion. The cardiomediastinal contours are unremarkable. Osseous structures are intact with degenerative spurring of the dorsal spine. CONCLUSION: No acute cardiopulmonary process. Lungs are clear. Oliver Perales MD on March 30, 2017 at 15:45 Board Certified Radiologist. This report was verified electronically.
[2017-03-30 16:03] VITALS: BP 122/78; PULSE 100; RESP 18; TEMP 98.6; O2SAT 93
--- NOTE | 2017-03-30 16:36 | HHI.IDPN ---
Note Infectious Disease Note Patient had temp of 103 last night. Had r. BKA yesterday 03/29/17. Says he feels fine. No distress. Afebrile. Repeated blood cultures are negative. Blood culture has bacteroides in one set and Veilonella in another from . Had partial Left BKA. 56-year-old white male who has diabetes mellitus. The patient presented to the emergency department on 03/17 with generalized weakness. The patient has diabetes mellitus. He is also a smoker. He was evaluated in the emergency department for worsening wound of the left foot and inability to ambulate. Foot x-ray revealed changes suggesting osteomyelitis of the metatarsophalangeal joint of toes three and four on the left and also the distal shaft of the fourth metatarsal. He had subsequent tumor localization study that showed osteomyelitis involving the distal fifth metatarsal of the left foot and osteomyelitis of the distal second and third metatarsals and proximal phalanges of the second and third digits of the right foot. PAST MEDICAL HISTORY: 1. Diabetes mellitus. 2. Diabetic neuropathy. 3. History of left great toe amputation. ALLERGIES: CODEINE. ANTIBIOTICS: Piperacillin / tazobactam. OBJECTIVE: Vital Signs Date Time Temp Pulse Resp B/P (MAP) Pulse Ox O2 Delivery O2 Flow Rate FiO2 03/30/17 12:03 99.2 94 18 128/65 (86) 94 03/30/17 08:03 99.0 94 18 134/77 (96) 95 03/30/17 07:00 Nasal Cannula 3.00 03/30/17 04:00 98.4 90 16 144/83 (103) 97 03/30/17 00:52 99.4 03/29/17 23:42 Nasal Cannula 3.00 03/29/17 23:42 100.5 107 18 123/79 (94) 94 03/29/17 20:00 102.3 107 18 148/89 (108) 93 03/29/17 20:00 Nasal Cannula 3.00 IMAGING: Brain MRI 03/21/17 0000 Signed Impressions: Service Date/Time: Tuesday, March 21, 2017 11:19 - CONCLUSION: 1. Chronic ischemic changes. 2. No acute infarction. 3. Skin lesion again seen within the left occipital region. 4. Sinus disease greatest in the left maxillary sinus. Yonatan Mccarthy MD Tumor Localization 03/18/17 0000 Signed Impressions: Service Date/Time: Saturday, March 18, 2017 13:33 - CONCLUSION: 1. Osteomyelitis of the distal fifth metatarsal of the left foot. 2. Osteomyelitis of the distal second and third metatarsal and proximal phalanges of the second and third digits of the right foot. Yonatan Mccarthy MD Carotid Artery Ultrasound 03/18/17 0000 Signed Impressions: Service Date/Time: Saturday, March 18, 2017 21:43 - CONCLUSION: No acute disease. Christofer Barron MD Aorta w/Runoff CTA 03/18/17 0000 Signed Impressions: Service Date/Time: Saturday, March 18, 2017 22:28 - CONCLUSION: 1. No significant aortic occlusive disease or iliac inflow stenosis. 2. No significant outflow stenosis. 3. Limited evaluation of the runoff vessels due to venous contamination secondary to significant hyperemia. There does appear to be limited runoff bilaterally, worse on the left - with apparent single vessel posterior tibial artery runoff. 4. Findings consistent with significant cellulitis of the distal ankles/feet bilaterally with combination of chronic and acute erosive bony changes most notably in the proximal left fifth metatarsal consistent with osteomyelitis. 5. Bulky bilateral inguinal adenopathy, likely infectious/inflammatory in etiology. 6. Additional ancillary findings, as above. Hunter Barahona MD Foot X-Ray 03/17/17 1613 Signed Impressions: Service Date/Time: Friday, March 17, 2017 16:23 - CONCLUSION: Findings of involvement of the metatarsal phalangeal joint toes #3 and 4 with involvement of the distal shaft of the fourth metatarsal suggesting osteomyelitis in or associated septic arthritis both sides of the joints. Jaxon Lisa MD Head CT 03/17/17 1138 Signed Impressions: Service Date/Time: Friday, March 17, 2017 12:12 - CONCLUSION: 1. No acute intracranial abnormality is identified. There is encephalomalacia likely related to old ischemia in the right frontal periventricular white matter. 2. There is a 3.7 cm subcutaneous mass in the left inferior occipital region. The appearance favors a sebaceous cyst or epidermal inclusion cyst. Suggest correlating with clinical examination to ensure that a more concerning abnormality is not present in this area. 3. Complete opacification of the partially visualized left maxillary sinus. Melquiades Vann MD PHYSICAL EXAMINATION: GENERAL: No acute distress. He is awake and alert and oriented. HEAD, EYES, EARS, NOSE, THROAT: Pupils reactive to light. No icterus. Oropharynx with moist mucosa. LUNGS: Clear to auscultation. HEART: Regular S1 and S2 without murmurs, rubs or gallops. ABDOMEN: Benign. EXTREMITIES: The left leg is post [id number] amputation. Right leg post BKA - dressing in place. SKIN: No rash. NEUROLOGIC: No gross focal findings. PSYCHIATRIC: Calm and cooperative. IMPRESSION: 1. Bacteremia - Bacteroides and Vielonella. Possibly emanating from the foot. Also possible contamination. had gangrenous and foul-smelling changes at the left foot prior to the surgery and hence likely source. Patient does not look toxic. 2. Osteomyelitis of the right foot. distal second and third metatarsals and proximal phalanges of the second and third digits of the right foot. Now post right BKA. RECOMMENDATIONS: Continue piperacillin / tazobactam and follow the temperature. If the temp remains normal the antibiotics can be stopped since the nidus of infection at the foot has been removed with surgery. Mook Jha MD Mar 30, 2017 16:36
[2017-03-30 18:58] LABS: BACTERIA, URINE OCC /hpf; BILIRUBIN, URINE NEG (NEG); BLOOD, URINE TRACE (NEG); GLUCOSE,URINE TRACE mg/dL (NEG); KETONE, URINE NEG (NEG); MUCUS URINE FEW /lpf (OCC); NITRITE,URINE NEG (NEG); PH, URINE 5.5 (5.0-8.5); RENAL EPITHELIAL CELLS <1 /hpf; SQUAMOUS EPITHELIAL CELL URINE 1 /hpf (0-5); URINE COLOR YELLOW (YELLW/STRAW); URINE LEUKOCYTE ESTERASE NEG (NEG)
[2017-03-30 19:48] VITALS: BP 112/66; PULSE 102; RESP 18; TEMP 100.3; O2SAT 92
[2017-03-31] VITALS: BP 125/71; PULSE 101; RESP 19; TEMP 98.6; O2SAT 93
[2017-03-31] MEDS: MORPHINE SULFATE 8 MG/ML INJ IV PUSH PRN ×3 (00:54→18:35)
[2017-03-31] MEDS: ACETAMINOPHEN/HYDROcodone 325 MG/10 MG TAB PO PRN ×5 (03:04→21:20)
[2017-03-31] MEDS: PIPERACIL-TAZO 3.375 GM PREMIX 50 ML IV SCH ×2 (04:16→10:57)
[2017-03-31 05:18] VITALS: BP 105/63; PULSE 94; RESP 18; TEMP 99.6; O2SAT 97
[2017-03-31 07:31] LABS: AUTOMATED NEUTROPHIL # 9.3 TH/MM3 (1.8-7.7); BASOPHIL # 0.1 TH/MM3 (0-0.2); BASOPHIL % 0.8 % (0.0-2.0); EOSINOPHIL # 0.5 TH/MM3 (0-0.4); EOSINOPHIL % 3.4 % (0.0-4.0); HEMATOCRIT 26.6 % (39.0-51.0); HEMOGLOBIN 8.6 GM/DL (13.0-17.0); LYMPH % 19.6 % (9.0-44.0); LYMPHOCYTE # 2.8 TH/MM3 (1.0-4.8); MEAN CELL VOLUME 82.6 FL (80.0-100.0); MEAN CORPUSCULAR HEMOGLOBIN 26.6 PG (27.0-34.0); MEAN CORPUSCULAR HGB CONC 32.2 % (32.0-36.0); MEAN PLATELET VOLUME 6.4 FL (7.0-11.0); MONO % 10.5 % (0.0-8.0); MONOCYTE # 1.5 TH/MM3 (0-0.9); NEUT % 65.7 % (16.0-70.0); PLATELET COUNT 492 TH/MM3 (150-450); RED BLOOD COUNT 3.22 MIL/MM3 (4.50-5.90); RED CELL DISTRIBUTION WIDTH 15.4 % (11.6-17.2); WHITE BLOOD COUNT 14.2 TH/MM3 (4.0-11.0)
[2017-03-31 07:45] LABS: BICARBONATE 29.1 MEQ/L (21.0-32.0); CREATININE 0.89 MG/DL (0.60-1.30); MAGNESIUM 2.1 MG/DL (1.5-2.5)
[2017-03-31] MEDS: INSULIN ASPART SUPPLEMENTAL SCALE SQ SCH ×4 (08:00→21:22)
[2017-03-31 08:03] VITALS: BP 119/77; PULSE 103; RESP 16; TEMP 98.2; O2SAT 95
[2017-03-31] MEDS: GABAPENTIN 400 MG CAP PO SCH ×4 (08:29→21:20)
[2017-03-31] MEDS: INSULIN DETEMIR 100 UNITS/ML VIAL SQ SCH ×2 (08:29→21:23)
[2017-03-31] MEDS: HEPARIN SODIUM - SQ 10,000 UNITS/ML VIAL SQ SCH ×2 (08:29→21:22)
[2017-03-31] MEDS: DOCUSATE SODIUM 50 MG/SENNA 8.6 MG TAB PO SCH ×2 (08:29→21:00)
[2017-03-31] MEDS: SELENIUM SULFIDE 1% SHAMPOO 207 ML BOTTLE TOPICAL SCH (08:30)
[2017-03-31] MEDS: SODIUM CHLORIDE 0.9% FLUSH 10 ML FLUSH IV FLUSH SCH ×2 (08:30→21:00)
[2017-03-31 12:03] VITALS: BP 134/74; PULSE 95; RESP 16; TEMP 98; O2SAT 95
--- NOTE | 2017-03-31 15:57 | PD.CAR.PN ---
CVT Progress Note Subjective/Hospital Course: Patient with severe peripheral vascular disease medical noncompliance. Gangrene of the left foot and deformity and incipient gangrene of the right foot I agree with Dr. Hu that there is nothing to do for the left foot and below-knee amputation is the only option I will order CTA with a runoff to see how the right side looks like if there is any way to improve the blood flow there for the right foot will go the same way otherwise very soon Full consult dictated Thanks Charlotte 03/19/17 This gentleman is admitted for florid gangrene and osteomyelitis of the left foot and incipient osteomyelitis and gangrene of the right foot Patient needs urgent left below-knee amputation for otherwise he will eventually from this infection for he'll develop either endocarditis renal failure or both I discussed this with patient in detail and at this point he refuses surgery As far as the right leg is concerned that one is going the same way and in the near future patient will require right below-knee amputation There are no other options available this time with this extensive gangrene of the both sides Patient has aortogram with a runoff does reveals good inflow and then the level of the knee anterior tibial and peroneal arteries are occluded and posterior tibial arteries are the only flow to the feet and while there is some bits and pieces of anterior tibial artery but this is the for most part of occluded Carotid ultrasound is okay and nothing needs to be done about this further Again patient this point to refuses surgery so we'll see which way this goes 03/20/17 Patient today again questions need for surgery and I will not be the one to convince him one way or the other. At this point patient has significant left groin lymphadenopathy and ankle area is starting to get red and swollen. The catheter is also more swollen so I believe the infection and inflammation are spreading proximally I've done everything I can to explained to the patient that right now gangrenous foot is beyond salvage and at this point we are saving his life not his leg. Patient agreed to staged below-knee amputation. In face of swelling and infection today he will undergo guillotine below-knee amputation, placement of wound VAC and then in next few days we will schedule him for actual closure of the amputation stump, for otherwise the amputation stump will of course get infected 03/21/17 Patient doing well at this time Pain controlled by expert help of medicine service Wound VAC draining serosanguineous material Will take to the OR Thursday for completion below-knee amputation 03/22/17 Still fair amount of serosanguineous material draining from the below-knee guillotine amputation, but clearing up Wound VAC in place Will give another day on the wound VAC and then take patient to operating room tomorrow for completion below-knee amputation 03/25/2017 Status post second stage left below-knee amputation Dressing intact and dry will keep dressing on until Patient is a disposition problem considering he is homeless. In addition patient's right foot is infected and he has gangrene of the toes without any possibility of revascularization so probably next week he will need a right below-knee amputation although this will be done in 1 session rather than staged 03/27/2017 Status post left BKA Incision is nice clean and dry dressing has been removed Skin looks healthy and site is healing well I discussed with patient status of his right leg. He has florid gangrene of the right foot and there is no other way down to do right below-knee amputation Patient agrees to the same We will go ahead with a right below-knee amputation Thursday or Thursday03/28/2017 Left BKA site is clean and dry Dressing removed daily Right foot is gangrenous in the distal land and this is combination of wet and dry gangrene with no remedial surgery to be done to preserve any part of the foot Proceed tomorrow with the right BKA single-stage amputation with closure 03/30/2017 Status post right below-knee amputation yesterday Dressing is clean dry and hemoglobin is stable In the meantime the left below-knee amputation site is clean and dry and healing nicely Obviously with bilateral amputations this patient will have a prolonged recovery and will need some sort of a halfway placement From my point he will be able to leave the hospital by Thursday Stitches will stay in for at least 3 weeks based on delay in healing 03/31/2017 Dressing intact right leg Left leg dressing has not been changed for 2 days despite clear orders to do so daily Continue care Patient will be able to be discharged tomorrow or Objective: Vital Signs Date Time Temp Pulse Resp B/P (MAP) Pulse Ox O2 Delivery O2 Flow Rate FiO2 03/31/17 12:03 98.0 95 16 134/74 (94) 95 03/31/17 08:03 98.2 103 16 119/77 (91) 95 03/31/17 07:00 Room Air 03/31/17 05:18 99.6 94 18 105/63 (77) 97 03/31/17 03:55 17 03/31/17 03:52 Nasal Cannula 3.00 03/31/17 01:57 17 03/31/17 00:00 Nasal Cannula 3.00 03/31/17 00:00 98.6 101 19 125/71 (89) 93 03/30/17 21:10 Nasal Cannula 3.00 03/30/17 19:48 100.3 102 18 112/66 (81) 92 03/30/17 16:03 98.6 100 18 122/78 (93) 93 Labs: Laboratory Tests Test 03/31/17 06:05 White Blood Count 14.2 TH/MM3 (4.0-11.0) Red Blood Count 3.22 MIL/MM3 (4.50-5.90) Hemoglobin 8.6 GM/DL (13.0-17.0) Hematocrit 26.6 % (39.0-51.0) Mean Corpuscular Volume 82.6 FL (80.0-100.0) Mean Corpuscular Hemoglobin 26.6 PG (27.0-34.0) Mean Corpuscular Hemoglobin Concent 32.2 % (32.0-36.0) Red Cell Distribution Width 15.4 % (11.6-17.2) Platelet Count 492 TH/MM3 (150-450) Mean Platelet Volume 6.4 FL (7.0-11.0) Neutrophils (%) (Auto) 65.7 % (16.0-70.0) Lymphocytes (%) (Auto) 19.6 % (9.0-44.0) Monocytes (%) (Auto) 10.5 % (0.0-8.0) Eosinophils (%) (Auto) 3.4 % (0.0-4.0) Basophils (%) (Auto) 0.8 % (0.0-2.0) Neutrophils # (Auto) 9.3 TH/MM3 (1.8-7.7) Lymphocytes # (Auto) 2.8 TH/MM3 (1.0-4.8) Monocytes # (Auto) 1.5 TH/MM3 (0-0.9) Eosinophils # (Auto) 0.5 TH/MM3 (0-0.4) Basophils # (Auto) 0.1 TH/MM3 (0-0.2) CBC Comment DIFF FINAL Differential Comment Blood Urea Nitrogen 18 MG/DL (7-18) Creatinine 0.89 MG/DL (0.60-1.30) Random Glucose 96 MG/DL (74-106) Calcium Level 9.0 MG/DL (8.5-10.1) Magnesium Level 2.1 MG/DL (1.5-2.5) Sodium Level 137 MEQ/L (136-145) Potassium Level 3.8 MEQ/L (3.5-5.1) Chloride Level 101 MEQ/L (98-107) Carbon Dioxide Level 29.1 MEQ/L (21.0-32.0) Anion Gap 7 MEQ/L (5-15) Estimat Glomerular Filtration Rate 88 ML/MIN (>89) Result Diagram: 03/31/17 0605 03/31/17 0605 Tierra Bennett MD Mar 31, 2017 15:57
[2017-03-31 16:03] VITALS: BP 104/67; PULSE 92; RESP 16; TEMP 98.3; O2SAT 96
[2017-03-31] MEDS: NYSTATIN 100,000 U/GM PWD 15 GM BTL TOPICAL SCH ×2 (16:44→21:00)
--- NOTE | 2017-03-31 17:15 | HHI.PR ---
Subjective Remarks Patient really reports he is feeling okay today. Afebrile today. Pain is controlled. Objective Vitals Vital Signs Date Time Temp Pulse Resp B/P (MAP) Pulse Ox O2 Delivery O2 Flow Rate FiO2 03/31/17 12:03 98.0 95 16 134/74 (94) 95 03/31/17 08:03 98.2 103 16 119/77 (91) 95 03/31/17 07:00 Room Air 03/31/17 05:18 99.6 94 18 105/63 (77) 97 03/31/17 03:55 17 03/31/17 03:52 Nasal Cannula 3.00 03/31/17 01:57 17 03/31/17 00:00 Nasal Cannula 3.00 03/31/17 00:00 98.6 101 19 125/71 (89) 93 03/30/17 21:10 Nasal Cannula 3.00 03/30/17 19:48 100.3 102 18 112/66 (81) 92 I/O 03/30/17 03/30/17 03/30/17 03/31/17 03/31/17 03/31/17 07:00 15:00 23:00 07:00 15:00 23:00 Intake Total 0 ml 0 ml 580 ml Output Total 600 ml 550 ml Balance -600 ml 0 ml 30 ml Intake Oral 0 ml 0 ml 480 ml IV Total 100 ml Output Urine Total 600 ml 550 ml # Voids 3 # Bowel Movements 0 0 0 Result Diagram: 03/31/17 0605 03/31/17 0605 Objective Remarks GENERAL: This is a well-nourished, well-developed patient, in no apparent distress. CARDIOVASCULAR: Normal rate and regular rhythm without murmurs, gallops, or rubs. RESPIRATORY: Good respiratory efforts. Breath sounds equal and clear to auscultation bilaterally. GASTROINTESTINAL: Abdomen soft, non-tender, non-distended. Normal active bowel sounds MUSCULOSKELETAL: Status post bilateral BKA. Stump dressing appear to be intact. NEURO: Alert & Oriented x4 to person, place, time, situation. PSYCH: Appropriate mood and affect. Procedures Bilateral BKA A/P Problem List: (1) Osteomyelitis of toe of left foot ICD Code: M86.9 - Osteomyelitis of toe of left foot Status: Chronic (2) DM (diabetes mellitus), type 2, uncontrolled ICD Code: E11.65 - DM (diabetes mellitus), type 2, uncontrolled Status: Chronic (3) Hyperglycemia ICD Code: R73.9 - Hyperglycemia Status: Acute Assessment and Plan 56-year-old male with: Sepsis Due to osteomyelitis b/l feet/DFI. Status post jannet BKA. Infectious disease consult appreciated. One blood culture growing Bacteroides species and the other is growing Veillonella species. -Continue to monitor for fever per infectious disease, may discontinue antibiotics since infectious focus has been removed if the patient remains afebrile. Continue Zosyn IV repeat blood culture negative. - Wound care - pain control with a bowel regimen. Ct tramadol, Lortab and IV morphine for breakthrough pain. Also on Neurontin. Wean narcotics Slurred speech Ongoing for the past 2 weeks. He also endorses increasing weakness. CT of the head was unremarkable except for encephalomalacia. MRI brain without acute process. - B12 level borderline low, status post B12 IM x 1. - PT/ OT. DM A1c 18.3 - Accu checks AC and HS. 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 Tobacco abuse The pt continues to smoke. - Cessation instruction. Anemia Appears chronic. - Follow CBC. Thrombocytosis Likely reactive. - Follow CBC. DVT prophylaxis: Heparin SQ Discharge Planning Difficult discharge. Patient apparently is homeless. Case management following Problem Qualifiers (1) DM (diabetes mellitus), type 2, uncontrolled: Qualified Codes: E11.42 - Type 2 diabetes mellitus with diabetic polyneuropathy ; E11.65 - Type 2 diabetes mellitus with hyperglycemia Abiodun Bland MD Mar 31, 2017 17:15
[2017-03-31 20:00] VITALS: BP 105/63; PULSE 96; RESP 18; TEMP 99.6; O2SAT 94
[2017-04-01] VITALS (7 sets, daily range): BP systolic 108–124; BP diastolic 62–77; PULSE 89–105; RESP 18–20; TEMP 97.3–100.8; O2SAT 91–98
[2017-04-01] MEDS: ACETAMINOPHEN/HYDROcodone 325 MG/10 MG TAB PO PRN ×5 (04:26→21:20)
[2017-04-01] MEDS: ACETAMINOPHEN 325 MG TAB PO PRN (05:45)
[2017-04-01] MEDS: INSULIN ASPART SUPPLEMENTAL SCALE SQ SCH ×4 (08:00→21:00)
[2017-04-01] MEDS: INSULIN DETEMIR 100 UNITS/ML VIAL SQ SCH ×2 (08:50→21:20)
[2017-04-01] MEDS: GABAPENTIN 400 MG CAP PO SCH ×4 (08:51→21:19)
[2017-04-01] MEDS: HEPARIN SODIUM - SQ 10,000 UNITS/ML VIAL SQ SCH ×2 (08:51→21:20)
[2017-04-01] MEDS: DOCUSATE SODIUM 50 MG/SENNA 8.6 MG TAB PO SCH ×3 (08:52→21:19)
[2017-04-01] MEDS: NYSTATIN 100,000 U/GM PWD 15 GM BTL TOPICAL SCH ×2 (08:52→21:00)
[2017-04-01] MEDS: SODIUM CHLORIDE 0.9% FLUSH 10 ML FLUSH IV FLUSH SCH ×2 (08:53→21:00)
[2017-04-01] MEDS: SELENIUM SULFIDE 1% SHAMPOO 207 ML BOTTLE TOPICAL SCH (08:53)
[2017-04-01] MEDS: MORPHINE SULFATE 8 MG/ML INJ IV PUSH PRN ×2 (11:22→14:37)
--- NOTE | 2017-04-01 13:41 | HHI.PR ---
Subjective Remarks Patient reports he is doing okay. Pain is controlled. Objective Vitals Vital Signs Date Time Temp Pulse Resp B/P (MAP) Pulse Ox O2 Delivery O2 Flow Rate FiO2 04/01/17 12:00 98.8 89 20 123/77 (92) 93 04/01/17 09:14 Nasal Cannula 2.00 04/01/17 08:00 97.9 98 18 109/65 (80) 97 04/01/17 06:15 99.7 04/01/17 05:45 19 04/01/17 04:00 100.8 103 18 124/67 (86) 95 04/01/17 04:00 95 Nasal Cannula 2.00 04/01/17 00:00 Room Air 04/01/17 00:00 99.2 105 18 108/62 (77) 91 03/31/17 21:20 Room Air 03/31/17 20:00 99.6 96 18 105/63 (77) 94 03/31/17 16:03 98.3 92 16 104/67 (79) 96 I/O 03/31/17 03/31/17 03/31/17 04/01/17 04/01/17 04/01/17 07:00 15:00 23:00 07:00 15:00 23:00 Intake Total 580 ml 420 ml 240 ml Output Total 550 ml 800 ml 250 ml Balance 30 ml -380 ml -10 ml Intake Oral 480 ml 420 ml 240 ml IV Total 100 ml Output Urine Total 550 ml 800 ml 250 ml # Bowel Movements 0 2 1 Result Diagram: 03/31/17 0603/31/17 0605 Objective Remarks GENERAL: This is a well-nourished, well-developed patient, in no apparent distress. CARDIOVASCULAR: Normal rate and regular rhythm without murmurs, gallops, or rubs. RESPIRATORY: Good respiratory efforts. Breath sounds equal and clear to auscultation bilaterally. GASTROINTESTINAL: Abdomen soft, non-tender, non-distended. Normal active bowel sounds MUSCULOSKELETAL: Status post bilateral BKA. Stump dressing appear to be intact. NEURO: Alert & Oriented x4 to person, place, time, situation. PSYCH: Appropriate mood and affect. Procedures Bilateral BKA A/P Problem List: (1) Osteomyelitis of toe of left foot ICD Code: M86.9 - Osteomyelitis of toe of left foot Status: Chronic (2) DM (diabetes mellitus), type 2, uncontrolled ICD Code: E11.65 - DM (diabetes mellitus), type 2, uncontrolled Status: Chronic (3) Hyperglycemia ICD Code: R73.9 - Hyperglycemia Status: Acute Assessment and Plan 56-year-old male with: Sepsis Due to osteomyelitis b/l feet/DFI. Status post jannet BKA. Infectious disease consult appreciated. One blood culture growing Bacteroides species and the other is growing Veillonella species. -Continue to monitor for fever per infectious disease, may discontinue antibiotics since infectious focus has been removed if the patient remains afebrile. Continue Zosyn IV repeat blood culture negative. - Wound care - pain control with a bowel regimen. Continue tramadol, Lortab and IV morphine for breakthrough pain. Also on Neurontin. Wean narcotics as tolerated. Slurred speech: No longer noticeable Ongoing for the past 2 weeks. He also endorses increasing weakness. CT of the head was unremarkable except for encephalomalacia. MRI brain without acute process. - B12 level borderline low, status post B12 IM x 1. -Continue PT/ OT. DM A1c 18.3 - Accu checks AC and HS. 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 Tobacco abuse The pt continues to smoke. - Cessation i counseling provided. Anemia Appears chronic. - Follow CBC. Thrombocytosis Likely reactive. - Follow CBC. DVT prophylaxis: Heparin SQ Discharge Planning Difficult discharge. Patient apparently is homeless. Case management following Problem Qualifiers (1) DM (diabetes mellitus), type 2, uncontrolled: Qualified Codes: E11.42 - Type 2 diabetes mellitus with diabetic polyneuropathy ; E11.65 - Type 2 diabetes mellitus with hyperglycemia Abiodun Bland MD Apr 01, 2017 13:41
--- NOTE | 2017-04-01 15:52 | PD.CAR.PN ---
CVT Progress Note Subjective/Hospital Course: Patient with severe peripheral vascular disease medical noncompliance. Gangrene of the left foot and deformity and incipient gangrene of the right foot I agree with Dr. Hu that there is nothing to do for the left foot and below-knee amputation is the only option I will order CTA with a runoff to see how the right side looks like if there is any way to improve the blood flow there for the right foot will go the same way otherwise very soon Full consult dictated Thanks Charlotte 03/19/17 This gentleman is admitted for florid gangrene and osteomyelitis of the left foot and incipient osteomyelitis and gangrene of the right foot Patient needs urgent left below-knee amputation for otherwise he will eventually from this infection for he'll develop either endocarditis renal failure or both I discussed this with patient in detail and at this point he refuses surgery As far as the right leg is concerned that one is going the same way and in the near future patient will require right below-knee amputation There are no other options available this time with this extensive gangrene of the both sides Patient has aortogram with a runoff does reveals good inflow and then the level of the knee anterior tibial and peroneal arteries are occluded and posterior tibial arteries are the only flow to the feet and while there is some bits and pieces of anterior tibial artery but this is the for most part of occluded Carotid ultrasound is okay and nothing needs to be done about this further Again patient this point to refuses surgery so we'll see which way this goes 03/20/17 Patient today again questions need for surgery and I will not be the one to convince him one way or the other. At this point patient has significant left groin lymphadenopathy and ankle area is starting to get red and swollen. The catheter is also more swollen so I believe the infection and inflammation are spreading proximally I've done everything I can to explained to the patient that right now gangrenous foot is beyond salvage and at this point we are saving his life not his leg. Patient agreed to staged below-knee amputation. In face of swelling and infection today he will undergo guillotine below-knee amputation, placement of wound VAC and then in next few days we will schedule him for actual closure of the amputation stump, for otherwise the amputation stump will of course get infected 03/21/17 Patient doing well at this time Pain controlled by expert help of medicine service Wound VAC draining serosanguineous material Will take to the OR Thursday for completion below-knee amputation 03/22/17 Still fair amount of serosanguineous material draining from the below-knee guillotine amputation, but clearing up Wound VAC in place Will give another day on the wound VAC and then take patient to operating room tomorrow for completion below-knee amputation 03/25/2017 Status post second stage left below-knee amputation Dressing intact and dry will keep dressing on until Patient is a disposition problem considering he is homeless. In addition patient's right foot is infected and he has gangrene of the toes without any possibility of revascularization so probably next week he will need a right below-knee amputation although this will be done in 1 session rather than staged 03/27/2017 Status post left BKA Incision is nice clean and dry dressing has been removed Skin looks healthy and site is healing well I discussed with patient status of his right leg. He has florid gangrene of the right foot and there is no other way down to do right below-knee amputation Patient agrees to the same We will go ahead with a right below-knee amputation Thursday or Thursday03/28/2017 Left BKA site is clean and dry Dressing removed daily Right foot is gangrenous in the distal land and this is combination of wet and dry gangrene with no remedial surgery to be done to preserve any part of the foot Proceed tomorrow with the right BKA single-stage amputation with closure 03/30/2017 Status post right below-knee amputation yesterday Dressing is clean dry and hemoglobin is stable In the meantime the left below-knee amputation site is clean and dry and healing nicely Obviously with bilateral amputations this patient will have a prolonged recovery and will need some sort of a longterm placement From my point he will be able to leave the hospital by Thursday Stitches will stay in for at least 3 weeks based on delay in healing 03/31/2017 Dressing intact right leg Left leg dressing has not been changed for 2 days despite clear orders to do so daily Continue care Patient will be able to be discharged tomorrow or 04/01/2017 Status post left BKA followed by right BKA Original dressings removed on the last several days ago and on the right side today Both stumps are clean and dry and healing nicely From my point patient can be transferred to longterm anytime Stitches will stay in for about 3 weeks Fresh dressing in the form of Kerlix has to be applied to the stumps daily in order to prevent infection and injury Objective: Vital Signs Date Time Temp Pulse Resp B/P (MAP) Pulse Ox O2 Delivery O2 Flow Rate FiO2 04/01/17 12:00 98.8 89 20 123/77 (92) 93 04/01/17 09:14 Nasal Cannula 2.00 04/01/17 08:00 97.9 98 18 109/65 (80) 97 04/01/17 06:15 99.7 04/01/17 05:45 19 04/01/17 04:00 100.8 103 18 124/67 (86) 95 04/01/17 04:00 95 Nasal Cannula 2.00 04/01/17 00:00 Room Air 04/01/17 00:00 99.2 105 18 108/62 (77) 91 03/31/17 21:20 Room Air 03/31/17 20:00 99.6 96 18 105/63 (77) 94 03/31/17 16:03 98.3 92 16 104/67 (79) 96 Result Diagram: 03/31/1760403/31/1705 Tierra Bennett MD Apr 01, 2017 15:52
[2017-04-02] VITALS (7 sets, daily range): BP systolic 118–138; BP diastolic 73–82; PULSE 86–100; RESP 18–20; TEMP 93–99.3; O2SAT 90–95
[2017-04-02] MEDS: MORPHINE SULFATE 8 MG/ML INJ IV PUSH PRN ×2 (06:11→22:00)
[2017-04-02] MEDS: INSULIN ASPART SUPPLEMENTAL SCALE SQ SCH ×4 (08:00→20:23)
[2017-04-02] MEDS: SELENIUM SULFIDE 1% SHAMPOO 207 ML BOTTLE TOPICAL SCH (08:26)
[2017-04-02] MEDS: INSULIN DETEMIR 100 UNITS/ML VIAL SQ SCH ×2 (08:26→21:00)
[2017-04-02] MEDS: SODIUM CHLORIDE 0.9% FLUSH 10 ML FLUSH IV FLUSH SCH ×2 (08:27→20:20)
[2017-04-02] MEDS: GABAPENTIN 400 MG CAP PO SCH ×4 (08:27→20:19)
[2017-04-02] MEDS: DOCUSATE SODIUM 50 MG/SENNA 8.6 MG TAB PO SCH ×2 (08:28→20:19)
[2017-04-02] MEDS: HEPARIN SODIUM - SQ 10,000 UNITS/ML VIAL SQ SCH ×2 (08:29→20:19)
[2017-04-02] MEDS: NYSTATIN 100,000 U/GM PWD 15 GM BTL TOPICAL SCH ×2 (08:30→20:20)
--- NOTE | 2017-04-02 10:44 | PD.CAR.PN ---
CVT Progress Note Subjective/Hospital Course: Patient with severe peripheral vascular disease medical noncompliance. Gangrene of the left foot and deformity and incipient gangrene of the right foot I agree with Dr. Hu that there is nothing to do for the left foot and below-knee amputation is the only option I will order CTA with a runoff to see how the right side looks like if there is any way to improve the blood flow there for the right foot will go the same way otherwise very soon Full consult dictated Thanks Charlotte 03/19/17 This gentleman is admitted for florid gangrene and osteomyelitis of the left foot and incipient osteomyelitis and gangrene of the right foot Patient needs urgent left below-knee amputation for otherwise he will eventually from this infection for he'll develop either endocarditis renal failure or both I discussed this with patient in detail and at this point he refuses surgery As far as the right leg is concerned that one is going the same way and in the near future patient will require right below-knee amputation There are no other options available this time with this extensive gangrene of the both sides Patient has aortogram with a runoff does reveals good inflow and then the level of the knee anterior tibial and peroneal arteries are occluded and posterior tibial arteries are the only flow to the feet and while there is some bits and pieces of anterior tibial artery but this is the for most part of occluded Carotid ultrasound is okay and nothing needs to be done about this further Again patient this point to refuses surgery so we'll see which way this goes 03/20/17 Patient today again questions need for surgery and I will not be the one to convince him one way or the other. At this point patient has significant left groin lymphadenopathy and ankle area is starting to get red and swollen. The catheter is also more swollen so I believe the infection and inflammation are spreading proximally I've done everything I can to explained to the patient that right now gangrenous foot is beyond salvage and at this point we are saving his life not his leg. Patient agreed to staged below-knee amputation. In face of swelling and infection today he will undergo guillotine below-knee amputation, placement of wound VAC and then in next few days we will schedule him for actual closure of the amputation stump, for otherwise the amputation stump will of course get infected 03/21/17 Patient doing well at this time Pain controlled by expert help of medicine service Wound VAC draining serosanguineous material Will take to the OR Thursday for completion below-knee amputation 03/22/17 Still fair amount of serosanguineous material draining from the below-knee guillotine amputation, but clearing up Wound VAC in place Will give another day on the wound VAC and then take patient to operating room tomorrow for completion below-knee amputation 03/25/2017 Status post second stage left below-knee amputation Dressing intact and dry will keep dressing on until Patient is a disposition problem considering he is homeless. In addition patient's right foot is infected and he has gangrene of the toes without any possibility of revascularization so probably next week he will need a right below-knee amputation although this will be done in 1 session rather than staged 03/27/2017 Status post left BKA Incision is nice clean and dry dressing has been removed Skin looks healthy and site is healing well I discussed with patient status of his right leg. He has florid gangrene of the right foot and there is no other way down to do right below-knee amputation Patient agrees to the same We will go ahead with a right below-knee amputation Thursday or Thursday03/28/2017 Left BKA site is clean and dry Dressing removed daily Right foot is gangrenous in the distal land and this is combination of wet and dry gangrene with no remedial surgery to be done to preserve any part of the foot Proceed tomorrow with the right BKA single-stage amputation with closure 03/30/2017 Status post right below-knee amputation yesterday Dressing is clean dry and hemoglobin is stable In the meantime the left below-knee amputation site is clean and dry and healing nicely Obviously with bilateral amputations this patient will have a prolonged recovery and will need some sort of a correction placement From my point he will be able to leave the hospital by Thursday Stitches will stay in for at least 3 weeks based on delay in healing 03/31/2017 Dressing intact right leg Left leg dressing has not been changed for 2 days despite clear orders to do so daily Continue care Patient will be able to be discharged tomorrow or 04/01/2017 Status post left BKA followed by right BKA Original dressings removed on the last several days ago and on the right side today Both stumps are clean and dry and healing nicely From my point patient can be transferred to correction anytime Stitches will stay in for about 3 weeks Fresh dressing in the form of Kerlix has to be applied to the stumps daily in order to prevent infection and injury 04/02/2017 Stumps are clean and dry hemoglobin is stable Patient can be transferred to correction anytime from my point Objective: Vital Signs Date Time Temp Pulse Resp B/P (MAP) Pulse Ox O2 Delivery O2 Flow Rate FiO2 04/02/17 08:00 93.0 94 18 138/76 (96) 93 04/02/17 07:39 Nasal Cannula 2.00 04/02/17 04:00 99.3 96 18 127/76 (93) 94 04/02/17 04:00 Nasal Cannula 2.00 04/02/17 00:00 98.8 89 18 130/75 (93) 94 04/02/17 00:00 Nasal Cannula 2.00 04/01/17 20:00 97.3 97 18 118/77 (91) 98 04/01/17 20:00 Nasal Cannula 2.00 04/01/17 16:00 98.5 92 20 120/67 (84) 92 04/01/17 12:00 98.8 89 20 123/77 (92) 93 Result Diagram: 03/31/1760403/31/17604 Tierra Bennett MD Apr 02, 2017 10:43
[2017-04-02] MEDS: ACETAMINOPHEN/HYDROcodone 325 MG/10 MG TAB PO PRN ×2 (10:59→17:48)
--- NOTE | 2017-04-02 11:22 | HHI.PR ---
Subjective Remarks Patient complains of right lower extremity pain is worse. None controlled with current pain medication regimen. Objective Vitals Vital Signs Date Time Temp Pulse Resp B/P (MAP) Pulse Ox O2 Delivery O2 Flow Rate FiO2 04/02/17 08:00 93.0 94 18 138/76 (96) 93 04/02/17 07:39 Nasal Cannula 2.00 04/02/17 04:00 99.3 96 18 127/76 (93) 94 04/02/17 04:00 Nasal Cannula 2.00 04/02/17 00:00 98.8 89 18 130/75 (93) 94 04/02/17 00:00 Nasal Cannula 2.00 04/01/17 20:00 97.3 97 18 118/77 (91) 98 04/01/17 20:00 Nasal Cannula 2.00 04/01/17 16:00 98.5 92 20 120/67 (84) 92 04/01/17 12:00 98.8 89 20 123/77 (92) 93 I/O 04/01/17 04/01/17 04/01/17 04/02/17 04/02/17 04/02/17 07:00 15:00 23:00 07:00 15:00 23:00 Intake Total 240 ml 600 ml 240 ml Output Total 250 ml 100 ml 400 ml Balance -10 ml 500 ml -160 ml Intake Oral 240 ml 600 ml 240 ml Output Urine Total 250 ml 100 ml 400 ml # Bowel Movements 1 0 0 Result Diagram: 03/31/1760403/31/17 0605 Objective Remarks GENERAL: This is a well-nourished, well-developed patient, in no apparent distress. CARDIOVASCULAR: Normal rate and regular rhythm without murmurs, gallops, or rubs. RESPIRATORY: Good respiratory efforts. Breath sounds equal and clear to auscultation bilaterally. GASTROINTESTINAL: Abdomen soft, non-tender, non-distended. Normal active bowel sounds MUSCULOSKELETAL: Status post bilateral BKA. Stump dressing appear to be intact. NEURO: Alert & Oriented x4 to person, place, time, situation. PSYCH: Appropriate mood and affect. Procedures Bilateral BKA A/P Problem List: (1) Osteomyelitis of toe of left foot ICD Code: M86.9 - Osteomyelitis of toe of left foot Status: Chronic (2) DM (diabetes mellitus), type 2, uncontrolled ICD Code: E11.65 - DM (diabetes mellitus), type 2, uncontrolled Status: Chronic (3) Hyperglycemia ICD Code: R73.9 - Hyperglycemia Status: Acute Assessment and Plan 56-year-old male with: Sepsis Due to osteomyelitis b/l feet/DFI. Status post jannet BKA. Infectious disease consult appreciated. One blood culture growing Bacteroides species and the other is growing Veillonella species. -Continue to monitor for fever per infectious disease, may discontinue antibiotics since infectious focus has been removed if the patient remains afebrile. Continue Zosyn IV repeat. Repeat blood cultures negative. -Plan to discontinue IV antibiotics tomorrow if he remains afebrile at 48 hours. - Wound care - pain control with a bowel regimen. Change [place] to Percocet for pain greater than 7. Continue IV morphine for breakthrough pain. Also on Neurontin. Wean narcotics as tolerated. Slurred speech: No longer noticeable Ongoing for the past 2 weeks. He also endorses increasing weakness. CT of the head was unremarkable except for encephalomalacia. MRI brain without acute process. - B12 level borderline low, status post B12 IM x 1. -Continue PT/ OT. DM A1c 18.3 - Accu checks AC and HS. 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 Continue Levemir to 16 units at bedtime and 20 units in the morning - ems educator. - Continue gabapentin. Tobacco abuse The pt continues to smoke. - Cessation counseling provided. Anemia Appears chronic. - Follow CBC. Thrombocytosis Likely reactive. - Follow CBC. DVT prophylaxis: Heparin SQ Discharge Planning Difficult discharge. Patient apparently is homeless. Case management following Problem Qualifiers (1) DM (diabetes mellitus), type 2, uncontrolled: Qualified Codes: E11.42 - Type 2 diabetes mellitus with diabetic polyneuropathy ; E11.65 - Type 2 diabetes mellitus with hyperglycemia Abiodun Bland MD Apr 02, 2017 11:22
[2017-04-02] MEDS: oxyCODONE/ACETAMINOPHEN 5 MG/325 MG TAB PO PRN ×2 (15:53→20:20)
[2017-04-03] VITALS (9 sets, daily range): BP systolic 99–115; BP diastolic 62–72; PULSE 98–132; RESP 18–21; TEMP 97.5–100.4; O2SAT 91–100
[2017-04-03] MEDS: oxyCODONE/ACETAMINOPHEN 5 MG/325 MG TAB PO PRN ×3 (00:38→20:43)
[2017-04-03] MEDS: MORPHINE SULFATE 8 MG/ML INJ IV PUSH PRN ×4 (03:41→22:15)
[2017-04-03] MEDS: SODIUM CHLORIDE 0.9% FLUSH 10 ML FLUSH IV FLUSH SCH ×2 (07:42→20:43)
[2017-04-03] MEDS: INSULIN ASPART SUPPLEMENTAL SCALE SQ SCH ×4 (08:00→20:49)
[2017-04-03] MEDS: GABAPENTIN 400 MG CAP PO SCH ×4 (08:17→20:43)
[2017-04-03] MEDS: HEPARIN SODIUM - SQ 10,000 UNITS/ML VIAL SQ SCH ×2 (08:17→20:42)
[2017-04-03] MEDS: DOCUSATE SODIUM 50 MG/SENNA 8.6 MG TAB PO SCH ×2 (08:17→20:42)
[2017-04-03] MEDS: INSULIN DETEMIR 100 UNITS/ML VIAL SQ SCH ×2 (08:18→21:24)
[2017-04-03] MEDS: SELENIUM SULFIDE 1% SHAMPOO 207 ML BOTTLE TOPICAL SCH (08:19)
[2017-04-03] MEDS: NYSTATIN 100,000 U/GM PWD 15 GM BTL TOPICAL SCH ×2 (08:19→20:43)
--- NOTE | 2017-04-03 11:00 | HHI.PR ---
Subjective Remarks Pain is better controlled today. No new issues. Objective Vitals Vital Signs Date Time Temp Pulse Resp B/P (MAP) Pulse Ox O2 Delivery O2 Flow Rate FiO2 04/03/17 08:00 99.6 111 20 110/71 (84) 93 04/03/17 05:22 98.5 115 18 110/71 (84) 91 04/03/17 04:00 Nasal Cannula 2.00 04/03/17 00:00 Nasal Cannula 2.00 04/02/17 23:24 97.7 100 18 126/82 (97) 95 04/02/17 20:05 99.3 97 18 118/74 (89) 92 04/02/17 20:00 Nasal Cannula 2.00 04/02/17 16:00 98.1 95 20 125/75 (92) 90 04/02/17 12:00 98.5 86 18 124/73 (90) 93 I/O 04/02/17 04/02/17 04/02/17 04/03/17 04/03/17 04/03/17 07:00 15:00 23:00 07:00 15:00 23:00 Intake Total 240 ml 720 ml 0 ml Output Total 400 ml 250 ml 150 ml Balance -160 ml 470 ml -150 ml Intake Oral 240 ml 720 ml 0 ml Output Urine Total 400 ml 250 ml 150 ml # Bowel Movements 0 0 0 Result Diagram: 03/31/1760403/31/17604 Objective Remarks GENERAL: This is a well-nourished, well-developed patient, in no apparent distress. CARDIOVASCULAR: Normal rate and regular rhythm without murmurs, gallops, or rubs. RESPIRATORY: Good respiratory efforts. Breath sounds equal and clear to auscultation bilaterally. GASTROINTESTINAL: Abdomen soft, non-tender, non-distended. Normal active bowel sounds MUSCULOSKELETAL: Status post bilateral BKA. Stump dressing appear to be intact. NEURO: Alert & Oriented x4 to person, place, time, situation. PSYCH: Appropriate mood and affect. Procedures Bilateral BKA A/P Problem List: (1) Osteomyelitis of toe of left foot ICD Code: M86.9 - Osteomyelitis of toe of left foot Status: Chronic (2) DM (diabetes mellitus), type 2, uncontrolled ICD Code: E11.65 - DM (diabetes mellitus), type 2, uncontrolled Status: Chronic (3) Hyperglycemia ICD Code: R73.9 - Hyperglycemia Status: Acute Assessment and Plan 56-year-old male with: Sepsis Due to osteomyelitis b/l feet/DFI. Status post jannet BKA. Infectious disease consult appreciated. One blood culture growing Bacteroides species and the other is growing Veillonella species. -Continue to monitor for fever per infectious disease, may discontinue antibiotics since infectious focus has been removed - Wound care - pain control with a bowel regimen. Continue Percocet for pain greater than 7. Continue IV morphine for breakthrough pain. Also on Neurontin. Wean narcotics as tolerated. Slurred speech: No longer noticeable Ongoing for the past 2 weeks. He also endorses increasing weakness. CT of the head was unremarkable except for encephalomalacia. MRI brain without acute process. - B12 level borderline low, status post B12 IM x 1. -Continue PT/ OT. DM A1c 18.3 - Accu checks AC and HS. 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 - Continue gabapentin. Tobacco abuse The pt continues to smoke. - Cessation counseling provided. Anemia Appears chronic. - Follow CBC. DVT prophylaxis: Heparin SQ Discharge Planning Difficult discharge. Patient apparently is homeless. Case management following Problem Qualifiers (1) DM (diabetes mellitus), type 2, uncontrolled: Qualified Codes: E11.42 - Type 2 diabetes mellitus with diabetic polyneuropathy ; E11.65 - Type 2 diabetes mellitus with hyperglycemia Abiodun Bland MD Apr 03, 2017 11:00
[2017-04-03] MEDS: ACETAMINOPHEN/HYDROcodone 325 MG/10 MG TAB PO PRN ×2 (12:28→16:22)
[2017-04-03] MEDS: RESP: ALBUTEROL 2.5 MG/IPRATROPIUM 0.5 MG NEB (SCH) NEB ×2 (16:00→19:57)
--- NOTE | 2017-04-03 16:09 | RADRPT ---
EXAM DATE/TIME: 04/03/2017 15:39 [facility] COMPARISON: CHEST SINGLE AP, March 30, 2017, 15:10. INDICATIONS : Short of breath. MEDICAL HISTORY : Diabetes mellitus type II. SURGICAL HISTORY : Umbilical hernia repair. Left foot amputation ENCOUNTER: Subsequent ACUITY: 1 day PAIN SCORE: 0/10 LOCATION: Bilateral chest FINDINGS: Mild linear parenchymal opacities slightly progressed from earlier exam at the right lung base. Cardi omediastinal contours are within normal limits. Remainder the exam is unchanged. CONCLUSION: 1. Minimal progression of right lung base linear parenchymal opacities consistent with worsening atel ectasis. Hunter Barahona MD on April 03, 2017 at 16:07 Board Certified Radiologist. This report was verified electronically.
[2017-04-03 18:37] LABS: AUTOMATED NEUTROPHIL # 24.1 TH/MM3 (1.8-7.7); BASOPHIL # 0.1 TH/MM3 (0-0.2); BASOPHIL % 0.4 % (0.0-2.0); EOSINOPHIL # 0.1 TH/MM3 (0-0.4); EOSINOPHIL % 0.5 % (0.0-4.0); HEMATOCRIT 27.1 % (39.0-51.0); HEMOGLOBIN 8.5 GM/DL (13.0-17.0); LYMPH % 5.3 % (9.0-44.0); LYMPHOCYTE # 1.5 TH/MM3 (1.0-4.8); MEAN CORPUSCULAR HEMOGLOBIN 25.8 PG (27.0-34.0); MEAN CORPUSCULAR HGB CONC 31.5 % (32.0-36.0); MEAN PLATELET VOLUME 6.5 FL (7.0-11.0); MONO % 6.2 % (0.0-8.0); MONOCYTE # 1.7 TH/MM3 (0-0.9); NEUT % 87.6 % (16.0-70.0); PLATELET COUNT 613 TH/MM3 (150-450); RED CELL DISTRIBUTION WIDTH 16.2 % (11.6-17.2); WHITE BLOOD COUNT 27.5 TH/MM3 (4.0-11.0)
[2017-04-03 21:36] LABS: BICARBONATE 22.7 MEQ/L (21.0-32.0); CALCIUM 9.3 MG/DL (8.5-10.1); CREATININE 2.78 MG/DL (0.60-1.30)
[2017-04-04] VITALS: PULSE 111
[2017-04-04] MEDS: oxyCODONE/ACETAMINOPHEN 5 MG/325 MG TAB PO PRN (03:09)
[2017-04-04 04:11] VITALS: PULSE 107
[2017-04-04 05:02] VITALS: BP 128/73; PULSE 113; RESP 18; TEMP 98.3; O2SAT 92
[2017-04-04] MEDS: MORPHINE SULFATE 8 MG/ML INJ IV PUSH PRN (05:26)
[2017-04-04] MEDS: RESP: ALBUTEROL 2.5 MG/IPRATROPIUM 0.5 MG NEB (SCH) NEB (07:44)
[2017-04-04 07:47] VITALS: O2SAT 95
[2017-04-04 07:55] LABS: HEMATOCRIT 26.4 % (39.0-51.0); HEMOGLOBIN 8.6 GM/DL (13.0-17.0); MEAN CELL VOLUME 81.6 FL (80.0-100.0); MEAN CORPUSCULAR HEMOGLOBIN 26.5 PG (27.0-34.0); MEAN CORPUSCULAR HGB CONC 32.5 % (32.0-36.0); MEAN PLATELET VOLUME 6.6 FL (7.0-11.0); PLATELET COUNT 586 TH/MM3 (150-450); RED BLOOD COUNT 3.23 MIL/MM3 (4.50-5.90); RED CELL DISTRIBUTION WIDTH 16.2 % (11.6-17.2); WHITE BLOOD COUNT 25.1 TH/MM3 (4.0-11.0)
[2017-04-04 08:00] VITALS: BP 127/78; PULSE 113; PULSE 120; RESP 20; TEMP 98.6; O2SAT 93
--- NOTE | 2017-04-04 08:36 | RADRPT ---
EXAM DATE/TIME: 04/04/2017 08:09 [facility] COMPARISON: CHEST SINGLE AP, April 03, 2017, 15:39. INDICATIONS : Shortness of breath. MEDICAL HISTORY : Diabetes mellitus type II. SURGICAL HISTORY : Umbilical hernia repair. Left foot amputation. ENCOUNTER: Subsequent ACUITY: 2 days PAIN SCORE: 0/10 LOCATION: Bilateral chest FINDINGS: The previously noted linear atelectasis in the right lung base has resolved. However, there does appe ar to be some prominence of the pulmonary vasculature suggestive of pulmonary venous congestion. The rest of the lungs remain grossly clear. There are no definite pleural effusions. The heart size is wi thin normal limits. The bony structures are stable. CONCLUSION: 1. The previously noted linear atelectasis in the right lung base has resolved. 2. There appears to be interval development of pulmonary venous congestion. Yovany Saul MD on April 04, 2017 at 8:33 Board Certified Radiologist. This report was verified electronically.
--- NOTE | 2017-04-04 08:43 | HHI.PR ---
Subjective Remarks I was notified this morning the patient went into respiratory distress. He was put on a non-breather. On my evaluation, he states he feels a little short of breath. He denies chest pain. Bladder scan revealed an Donaldson insertion revealed he had over 2 L of urine in his bladder. Objective Vitals Vital Signs Date Time Temp Pulse Resp B/P (MAP) Pulse Ox O2 Delivery O2 Flow Rate FiO2 04/04/17 07:47 95 Non-Rebreather 13.00 04/04/17 05:02 98.3 113 18 128/73 (91) 92 04/04/17 04:12 Non-Rebreather 04/04/17 04:11 107 04/04/17 00:00 Non-Rebreather 04/04/17 00:00 111 04/03/17 23:05 97.7 114 18 99/62 (74) 97 04/03/17 20:00 Non-Rebreather 04/03/17 20:00 123 04/03/17 19:58 98 Non-Rebreather 04/03/17 19:27 97.5 121 18 114/67 (83) 98 04/03/17 16:00 132 04/03/17 16:00 98.4 120 21 112/69 (83) 100 04/03/17 15:08 98 Non-Rebreather 15.00 04/03/17 12:00 100.4 98 20 115/72 (86) 93 I/O 04/03/17 04/03/17 04/03/17 04/04/17 04/04/17 04/04/17 07:00 15:00 23:00 07:00 15:00 23:00 Intake Total 0 ml 240 ml Output Total 150 ml Balance -150 ml 240 ml Intake Oral 0 ml 240 ml Output Urine Total 150 ml # Voids 2 4 # Bowel Movements 0 0 1 Result Diagram: 04/04/17 0704/03/172009 Objective Remarks GENERAL: Patient on a nonrebreather. Appear comfortable. CARDIOVASCULAR: Normal rate and regular rhythm without murmurs, gallops, or rubs. RESPIRATORY: Diffuse rhonchi and bibasilar crackles. GASTROINTESTINAL: Abdomen soft, non-tender, non-distended. Normal active bowel sounds MUSCULOSKELETAL: Status post bilateral BKA. Stump dressing appear to be intact. NEURO: Alert & Oriented x4 to person, place, time, situation. PSYCH: Appropriate mood and affect. Procedures Bilateral BKA A/P Problem List: (1) Osteomyelitis of toe of left foot ICD Code: M86.9 - Osteomyelitis of toe of left foot Status: Chronic (2) DM (diabetes mellitus), type 2, uncontrolled ICD Code: E11.65 - DM (diabetes mellitus), type 2, uncontrolled Status: Chronic (3) Hyperglycemia ICD Code: R73.9 - Hyperglycemia Status: Acute (4) Acute hypoxemic respiratory failure ICD Code: J96.01 - Acute respiratory failure with hypoxia (5) Pulmonary edema ICD Code: J81.1 - Chronic pulmonary edema Assessment and Plan I was notified by RN the patient Hypoxemic respiratory distress, pulmonary edema on chest xray this morning. IV Lasix and Donaldson was ordered. He coded multiple times within a short period of time. I discussed with drinking water technician Dr. Mckinley. I discussed with the patient's only known relative and contact manager, His brother John Nam who was very clear that his brother would want to be a DNR and advised us to stop resuscitation at this time. Went back in the room and advised ACLS team. Code efforts discontinued. Problem Qualifiers (1) DM (diabetes mellitus), type 2, uncontrolled: Qualified Codes: E11.42 - Type 2 diabetes mellitus with diabetic polyneuropathy ; E11.65 - Type 2 diabetes mellitus with hyperglycemia Abiodun Bland MD Apr 04, 2017 08:43
[2017-04-04] MEDS ORDERED: FUROSEMIDE 40 MG/4 ML VIAL IV PUSH ONE (08:45)
[2017-04-04] MEDS: GABAPENTIN 400 MG CAP PO SCH ×2 (09:00→09:56)
[2017-04-04] MEDS: DOCUSATE SODIUM 50 MG/SENNA 8.6 MG TAB PO SCH (09:56)
[2017-04-04] MEDS: HEPARIN SODIUM - SQ 10,000 UNITS/ML VIAL SQ SCH (09:56)
[2017-04-04] MEDS: SODIUM CHLORIDE 0.9% FLUSH 10 ML FLUSH IV FLUSH SCH (09:56)
[2017-04-04] MEDS: SELENIUM SULFIDE 1% SHAMPOO 207 ML BOTTLE TOPICAL SCH (09:57)
[2017-04-04] MEDS: NYSTATIN 100,000 U/GM PWD 15 GM BTL TOPICAL SCH (09:57)
[2017-04-04] MEDS: INSULIN DETEMIR 100 UNITS/ML VIAL SQ SCH (09:57)
[2017-04-04] MEDS: INSULIN ASPART SUPPLEMENTAL SCALE SQ SCH (09:57)
[2017-04-04] MEDS: ACETAMINOPHEN/HYDROcodone 325 MG/10 MG TAB PO PRN (10:00)
[2017-04-04] MEDS ORDERED: ETOMIDATE 40 MG/20 ML VIAL ONE (10:31)
[2017-04-04] MEDS ORDERED: ROCURONIUM INJ 50 MG/5 ML VIAL ONE (10:31)
[2017-04-04] MEDS ORDERED: EPINEPHrine HCL (1:10,000) 1 MG/10 ML SYRINGE ONE (10:35)
[2017-04-04 11:11] VITALS: O2SAT 90
--- NOTE | 2017-04-04 12:32 | PD.PROCEDR ---
Procedure Note Procedure DATE: 04/04/2017 PROCEDURE: Orotracheal intubation INDICATION: Acute hypoxemic respiratory failure DETAILS OF PROCEDURE The patient was placed in optimal position and preoxygenated with 100% FiO2 via bag valve mask. At the start oxygen saturation was 80%. The patient was administered 20 mg etomidate IV. This was given due to the patient biting down. I entered the oropharynx with a size 4 GVL glidescope blade and obtained a grade 2 view of the airway. On single attempt a size 8.0 cuffed endotracheal tube was passed through the vocal cords. Correct tube location was confirmed with end tidal CO2 detector and by auscultating over bilateral lung hodges. The endotracheal tube was secured with adhesive tape at a depth of 24 cm at the lips. The patient was connected to the ventilator. The patient tolerated the procedure well without any apparent complications. Oxygen saturations were maintained greater than 95% all times. STAT chest x-ray was not performed due to CODE BLUE called immediately afterwards. Janak Mckinley MD Apr 04, 2017 12:32
--- NOTE | 2017-04-04 12:36 | PD.PROCEDR ---
Procedure Note Procedure CODE BLUE note Was asked by RT to evaluate patient brought as a [facility] to room 1330. Chart very cursory reviewed. At 1035, after intubation patient agonal breathing with PEA arrest. Blood pressure not obtained at 1038 patient was noted to be an ST elevation. CODE BLUE was called. Patient is CT 1 mg of epinephrine intermittently drip was started at 20 g per minute. Patient also received 1 ampule of calcium chloride. This lasted until 1046 with this return of spontaneous circulation. Patient PEA arrest again at 1052. Patient received 2 ampules of this epinephrine 1 episode of bicarbonate. Patient said was increased to 30 g per minute. Return of spontaneous regulation at 10 58. It was noted to be in third-degree heart block/ST elevation. It 1101, patient PEA arrest. Received 2 mg epinephrine, 1 episode of bicarbonate and epinephrine drip was increased to [address] delaney notified brother who wishes to cease any further CODE BLUE methods. Patient was noted to be PEA when code was called at 1108. Pupils were dilated and not responsive. Agonal breathing through ET tube. No palpable carotid, femoral and radial pulses. No heart tones were auscultated. Patient didn't withdraw to pain. Janak Mckinley MD Apr 04, 2017 12:36
--- NOTE | 2017-04-04 23:05 | HHI.DS ---
Summary Note Date of : Apr 04, 2017 Time Of : 1104 Admission Date Mar 17, 2017 at 17:05 Admitting Diagnosis diabetic foot wound, r/o osteomyelitis Diagnosis at Time of : (1) Osteomyelitis of toe of left foot ICD Code: M86.9 - Osteomyelitis of toe of left foot (2) DM (diabetes mellitus), type 2, uncontrolled ICD Code: E11.65 - DM (diabetes mellitus), type 2, uncontrolled (3) Hyperglycemia ICD Code: R73.9 - Hyperglycemia (4) Acute hypoxemic respiratory failure ICD Code: J96.01 - Acute respiratory failure with hypoxia (5) Pulmonary edema ICD Code: J81.1 - Chronic pulmonary edema Procedures Bilateral BKA Brief History 56 y/o male with a history or DM and neuropathy with complaints of a worsening ulcer on his left foot. He states he has had this ulcers for about a week out. He states he has not seen a PCP in a few years and gets his metformin from his brothers prescription. He has misplaced the bottle and has not taken meds for 3 days. He states he has not been able to walk very well and uses a walker to get around. He states he has not seen a microsoft dynamics developer because he fears he may loose his foot. He denies any chest pain, fevers, or chills. He takes gabapentin for pain and states that it does control his pain. He does not have any increasing pain to his foot. CBC/BMP: 04/04/17 0712 04/03/172009 Significant Findings Laboratory Tests Test 04/03/17 18:00 04/03/17 20:10 04/04/17 07:12 04/04/17 08:06 White Blood Count 27.5 TH/MM3 (4.0-11.0) 25.1 TH/MM3 (4.0-11.0) Red Blood Count 3.30 MIL/MM3 (4.50-5.90) 3.23 MIL/MM3 (4.50-5.90) Hemoglobin 8.5 GM/DL (13.0-17.0) 8.6 GM/DL (13.0-17.0) Hematocrit 27.1 % (39.0-51.0) 26.4 % (39.0-51.0) Mean Corpuscular Hemoglobin 25.8 PG (27.0-34.0) 26.5 PG (27.0-34.0) Mean Corpuscular Hemoglobin Concent 31.5 % (32.0-36.0) Platelet Count 613 TH/MM3 (150-450) 586 TH/MM3 (150-450) Mean Platelet Volume 6.5 FL (7.0-11.0) 6.6 FL (7.0-11.0) Neutrophils (%) (Auto) 87.6 % (16.0-70.0) Lymphocytes (%) (Auto) 5.3 % (9.0-44.0) Neutrophils # (Auto) 24.1 TH/MM3 (1.8-7.7) Monocytes # (Auto) 1.7 TH/MM3 (0-0.9) Blood Urea Nitrogen 65 MG/DL (7-18) Creatinine 2.78 MG/DL (0.60-1.30) Random Glucose 180 MG/DL (74-106) Estimat Glomerular Filtration Rate 24 ML/MIN (>89) B-Type Natriuretic Peptide 463 PG/ML (0-100) Blood Gas Hemoglobin 10.2 G/DL (12.0-16.0) Imaging Last Impressions Chest X-Ray 04/04/17 0000 Signed Impressions: Service Date/Time: Tuesday, April 04, 2017 08:09 - CONCLUSION: 1. The previously noted linear atelectasis in the right lung base has resolved. 2. There appears to be interval development of pulmonary venous congestion. Yovany Saul MD Brain MRI 03/21/17 0000 Signed Impressions: Service Date/Time: Tuesday, March 21, 2017 11:19 - CONCLUSION: 1. Chronic ischemic changes. 2. No acute infarction. 3. Skin lesion again seen within the left occipital region. 4. Sinus disease greatest in the left maxillary sinus. Yonatan Mccarthy MD Tumor Localization 03/18/17 0000 Signed Impressions: Service Date/Time: Saturday, March 18, 2017 13:33 - CONCLUSION: 1. Osteomyelitis of the distal fifth metatarsal of the left foot. 2. Osteomyelitis of the distal second and third metatarsal and proximal phalanges of the second and third digits of the right foot. Yonatan Mccarthy MD Carotid Artery Ultrasound 03/18/17 0000 Signed Impressions: Service Date/Time: Saturday, March 18, 2017 21:43 - CONCLUSION: No acute disease. Christofer Barron MD Aorta w/Runoff CTA 03/18/17 0000 Signed Impressions: Service Date/Time: Saturday, March 18, 2017 22:28 - CONCLUSION: 1. No significant aortic occlusive disease or iliac inflow stenosis. 2. No significant outflow stenosis. 3. Limited evaluation of the runoff vessels due to venous contamination secondary to significant hyperemia. There does appear to be limited runoff bilaterally, worse on the left - with apparent single vessel posterior tibial artery runoff. 4. Findings consistent with significant cellulitis of the distal ankles/feet bilaterally with combination of chronic and acute erosive bony changes most notably in the proximal left fifth metatarsal consistent with osteomyelitis. 5. Bulky bilateral inguinal adenopathy, likely infectious/inflammatory in etiology. 6. Additional ancillary findings, as above. Hunter Barahona MD Foot X-Ray 03/17/17 1613 Signed Impressions: Service Date/Time: Friday, March 17, 2017 16:23 - CONCLUSION: Findings of involvement of the metatarsal phalangeal joint toes #3 and 4 with involvement of the distal shaft of the fourth metatarsal suggesting osteomyelitis in or associated septic arthritis both sides of the joints. Jaxon Lisa MD Head CT 03/17/17 1138 Signed Impressions: Service Date/Time: Friday, March 17, 2017 12:12 - CONCLUSION: 1. No acute intracranial abnormality is identified. There is encephalomalacia likely related to old ischemia in the right frontal periventricular white matter. 2. There is a 3.7 cm subcutaneous mass in the left inferior occipital region. The appearance favors a sebaceous cyst or epidermal inclusion cyst. Suggest correlating with clinical examination to ensure that a more concerning abnormality is not present in this area. 3. Complete opacification of the partially visualized left maxillary sinus. Melquiades Vann MD Hospital Course 56-year-old male initially admitted and treated for sepsis secondary to osteomyelitis involving both feet. Patient followed by ID and Vascular surgery.One blood culture growing Bacteroides species and the other is growing Veillonella species. He ultimately underwent bilateral BKA. His LE pain was difficult to control. He remained very deconditioned. He had a no place to go because he was homeless prior to admission.The patient also apparently had untreated diabetes. His hemoglobin A1C was 18.3. The patient has been on antibiotics and sepsis resolved. Unfortunately on 04/04/17 Patient went into acute hypoxemic respiratory failure.Chest x-ray revealed pulmonary edema. He had aevidence of urinary retention and acute renal failure. A erwin was inserted and he was given Lasix. A Halicat was called and patient transferred to the ICU. He coded multiple times within a short period of time. The case discussed with day spa manager Dr. Mckinley during the code. I discussed with the patient's only known relative and personnel clerk, His brother John Nam who was very clear that his brother would want to be a DNR and advised us to stop resuscitation efforts at this time. Code team was advised efforts discontinued. Time of 1108AM. Abiodun Bland MD Apr 04, 2017 23:05
== END 2017-04-04 13:05 | disposition expired | DRG 853 ==
LOC: NEPE 11:29 → NEDA 17:05 → NEDH 21:53 → N04B 03-18 17:48 → N03B 04-04 10:28
PROVIDERS: ADMIT Family Medicine; ATTEND Family Medicine
PROC: 0Y6J0Z3 Detachment at Left Lower Leg, Low, Open Approach (ICD-10-PCS; principal; 2017-03-20 10:32)
PROC: 0Y6J0Z1 Detachment at Left Lower Leg, High, Open Approach (ICD-10-PCS; 2017-03-24)
PROC: 0Y6H0Z1 Detachment at Right Lower Leg, High, Open Approach (ICD-10-PCS; 2017-03-29)
PROC: 0BH18EZ Insertion of Endotracheal Airway into Trachea, Via Natural or Artificial Opening Endoscopic (ICD-10-PCS; 2017-04-04)
PROC: 0T9B70Z Drainage of Bladder with Drainage Device, Via Natural or Artificial Opening (ICD-10-PCS; 2017-04-04)
DX: A41.9 Sepsis, unspecified organism (principal); J96.01 Acute respiratory failure with hypoxia; N17.9 Acute kidney failure, unspecified; L89.329 Pressure ulcer of left buttock, unspecified stage; J81.1 Chronic pulmonary edema; E11.52 Type 2 diabetes mellitus with diabetic peripheral angiopathy with gangrene; E11.42 Type 2 diabetes mellitus with diabetic polyneuropathy; M86.672 Other chronic osteomyelitis, left ankle and foot; E11.621 Type 2 diabetes mellitus with foot ulcer; D47.3 Essential (hemorrhagic) thrombocythemia; D64.9 Anemia, unspecified; E11.628 Type 2 diabetes mellitus with other skin complications; E11.65 Type 2 diabetes mellitus with hyperglycemia; B37.2 Candidiasis of skin and nail; L97.529 Non-pressure chronic ulcer of other part of left foot with unspecified severity; E11.69 Type 2 diabetes mellitus with other specified complication; G54.6 Phantom limb syndrome with pain; R53.1 Weakness; R33.9 Retention of urine, unspecified; F17.210 Nicotine dependence, cigarettes, uncomplicated; R29.6 Repeated falls; Z66 Do not resuscitate; Z91.14 Patient's other noncompliance with medication regimen; Z59.0 Homelessness
CPT/HCPCS: 31500; 36556; 36600; 70450; 70551; 71045; 73630; 75635; 78807; 78999; 80048; 80053; 80202; 81001; 82550; 82565; 82607; 82805; 82948; 83036; 83735; 83880; 84443; 84484; 85007; 85025; 85027; 85610; 85652; 85730; 86140; 86403; 86850; 86900; 86901; 86920; 87015; 87040; 87070; 87077; 87102; 87116; 87205; 87206; 88307; 88311; 92950; 93005; 93880; 94640; 94664; 99285; A9569; G8987-GP; G8988-GP; J0131; J0171; J0690; J1170; J1644; J1815; J1940; J2250; J2270; J2370; J2405; J2543; J2710; J3010; J3370; J3420; J7040; J7050; J7120; Q9967